=== PATIENT | female | born 1945 | race Caucasian/White ===

== ENCOUNTER → 2017-03-27 13:34 | Outpatient (CLI) | payer MEDICARE, OTHER, SELFPAY ==
[2017-03-27 16:15] LABS: Free T3 2.7 pg/mL (2.18-3.98); T4 Free Direct 1.28 ng/dL (0.76-1.46); Thyroid Stim Hormone (TSH) 1.02 uIU/mL (0.358-3.74)
== END ==
PROVIDERS: Family Provider Internal Medicine; PCP Internal Medicine; Visit Provider Nurse Practitioner
DX: E03.9 Hypothyroidism, unspecified (principal)
CPT/HCPCS: 36415; 84439; 84443; 84481

== ENCOUNTER 2017-04-02 13:30 | Outpatient (RCR) | payer MEDICARE, OTHER, SELFPAY ==
--- NOTE | 2017-02-05 15:06 | HP.PTEVAL_ITS ---
Patient's Visit Information AKIRA CHRISTENSEN is a 71 year old F referred to Physical Therapy by Inderjit Wolfe MD with a diagnosis of L TSA. Date of Evaluation: 02/05/17 Physical Therapist: Jakob Beatty, PT, - Visit Plan Frequency: 2-3x /Week Duration: 4-6 Weeks Plan: Follow protocal. PROM weeks 1-3, AAROM 4-6, strengthening 6-8. No IR 3 weeks - Subjective Subjective: DOS: 12/24/16. Pt reports she previously had her L shoulder replaced in 2013. Pt reports she was doing really well since that surgery, but pt notes while working at the [employer], her L shoulder prosthetic dislocated. Pt reports she had to have a reverse totoal shoulder arthroplasty this time around. Pt notes she was in her sling up til one week ago. Pt notes she wasnt the most compliant with wearing her sling. Pt is R hand dom. No T or numbness at this time. Pt reports her only limitations at this time are to avoid reaching behind her, and to not lift over 2 lbs. No sleep diff secondary to pain. 0/10 pain at rest, 3/10 at worst (wrapping rashad presents) - Pain L shoulder Pain Intensity (Out of 10): 0 Pain Intensity Range: 3 - Objective Neuro: B UE sensation is WNL to light touch. B bicepital reflex= 2/3. AROM: R shoulder flex= 150, abd= 120, ER= 90, IR WNL; L shoulder flex= 96, scap= 88 degrees. Observation: incisionsully healed, no signs of infection. MMT: R shoulder 5/5. L shoulder not tested - Goals Goal 1:: Decrease L shoulder pain x 50% to aid with IADL's Goal Time Frame: 4-6 Weeks Goal 2:: Increase L shoulder flex and abd ROM x 40 degrees to aid with overhead lifting Goal Time Frame: 4-6 Weeks Goal 3:: Increase L shoulder strength x 1 grade to aid with IADL's Goal Time Frame: 4-6 Weeks Goal 4:: I with HEP Goal Time Frame: 4-6 Weeks - Rehabilitation Potential Physical Therapy Diagnosis: L shoulder pain, weAKNESS, and limited ROM secondary L TSA Rehabilitation Potential: Good - Anticipated Interventions Patient/Client Instruction: Educate patient on: Condition, Plan of Care For the Purpose of:: To improve self management Therapeutic Exercise to Include: Strength training, Endurance training, Postural training, Passive ROM, Active ROM, Scapular Strength/Stabilization For the Purpose of:: To decrease pain, To increase ROM, To improve muscle performance and motor function Cryotherapy (ice pack, ice massage): Yes For the Purpose of:: To decrease pain Thank you for the opportunity to evaluate your patient. For Medicare and Medicare HMO plans, please review the plan of care and approve it. It will need to be FAXED BACK to us at [phone] for Medicare purposes. Please let me know if there are questions or concerns regarding this plan of care. Physician Signature: Date:
--- NOTE | 2017-02-27 15:37 | HP.PTEVAL ---
Patient's Visit Information AKIRA CHRISTENSEN is a 71 year old F referred to Physical Therapy by MD MELIA Sánchez with a diagnosis of L TSA. Date of Evaluation: 02/05/17 Physical Therapist: Austin Almanzar DPT, OC - Visit Plan Frequency: 2-3x /Week Duration: 4-6 Weeks Plan: Follow protocol. PROM weeks 1-3, AAROM 4-6, strengthening 6-8. No IR 3 weeks. Per pt request, do not do any activities that require the use of her Right arm. - Subjective Subjective: DOS: 12/24/16. Pt reports she previously had her L shoulder replaced in 2013. Pt reports she was doing really well since that surgery, but pt notes while working at the [employer], her L shoulder prosthetic dislocated. Pt reports she had to have a reverse totoal shoulder arthroplasty this time around. Pt notes she was in her sling up til one week ago. Pt notes she wasnt the most compliant with wearing her sling. Pt is R hand dom. No T or numbness at this time. Pt reports her only limitations at this time are to avoid reaching behind her, and to not lift over 2 lbs. No sleep diff secondary to pain. 0/10 pain at rest, 3/10 at worst (wrapping rashad presents) - Pain L shoulder Pain Intensity (Out of 10): 0 Pain Intensity Range: 3 - Objective Neuro: B UE sensation is WNL to light touch. B bicepital reflex= 2/3. AROM: R shoulder flex= 150, abd= 120, ER= 90, IR WNL; L shoulder flex= 96, scap= 88 degrees. Observation: incisionsully healed, no signs of infection. MMT: R shoulder 5/5. L shoulder not tested - Goals Goal 1:: Decrease L shoulder pain x 50% to aid with IADL's Goal Time Frame: 4-6 Weeks Goal 2:: Increase L shoulder flex and abd ROM x 40 degrees to aid with overhead lifting Goal Time Frame: 4-6 Weeks Goal 3:: Increase L shoulder strength x 1 grade to aid with IADL's Goal Time Frame: 4-6 Weeks Goal 4:: I with HEP Goal Time Frame: 4-6 Weeks - Rehabilitation Potential Physical Therapy Diagnosis: L shoulder pain, weAKNESS, and limited ROM secondary L TSA Rehabilitation Potential: Good - Anticipated Interventions Patient/Client Instruction: Educate patient on: Condition, Plan of Care For the Purpose of:: To improve self management Therapeutic Exercise to Include: Strength training, Endurance training, Postural training, Passive ROM, Active ROM, Scapular Strength/Stabilization For the Purpose of:: To decrease pain, To increase ROM, To improve muscle performance and motor function Cryotherapy (ice pack, ice massage): Yes For the Purpose of:: To decrease pain Thank you for the opportunity to evaluate your patient. For Medicare and Medicare HMO plans, please review the plan of care and approve it. It will need to be FAXED BACK to us at [phone] for Medicare purposes. Please let me know if there are questions or concerns regarding this plan of care. Physician Signature: Date:
--- NOTE | 2017-03-07 10:52 | HP.PTDCS(2) ---
HP - PT D/C Summary (2) It has been my pleasure to treat AKIRA CHRISTENSEN under orders from Inderjit Wolfe MD, for the diagnosis of BPPV for a total of 2 visit(s). Discharge Date: Please see the following information for a summary of their discharge status. - Subjective Subjective: Doing great, no dizzyness jaqui week, activities are normal - Objective Objective/Function/Assessment: - B hallpike and roll test Good balance - Goals Patient Goals: Other Other Goals: rid dizzyness. Goal 1:: Abolish dizzyness with transfers Goal Progress: Goal Met Goal 2:: Pt feel 100% better as far as dizzyness goes and normal activites at normal speed. Goal Progress: Goal Met - Plan Plan: D/C vertigo chart. - D/C Information If there are questions or concerns regarding this patient's physical therapy, please feel free to call me at [phone]. Thank you for the referral of this patient. Sincerely, Austin Almanzar, DPT, OC
--- NOTE | 2017-03-21 10:38 | HP.PTREVAL_ITS ---
Inderjit Wlofe MD, It has been my pleasure to treat AKIRA CHRISTENSEN over the last 11 visits for Steven TSA. Please see the progress note below for an update on the physical therapy plan of care! Subjective: I am about the same Objective/Function: L shoulder ROM: flex= 105, abd= 85, ER= 20, IR WNL. L shoulder MMT: flex= 2+/5, abd and IR= 3+/5, Er= 2/5. Pain 2/10, increases to 4/ 10 at worst. Pt is showing progress with ROM Plan Plan: cont with phase 3 strengthening Goals Goal 1:: Decrease L shoulder pain x 50% to aid with IADL's Goal Time Frame: 4-6 Weeks Goal Progress: Progressing Goal 2:: Increase L shoulder flex and abd ROM x 40 degrees to aid with overhead lifting Goal Time Frame: 4-6 Weeks Goal Progress: Progressing Goal 3:: Increase L shoulder strength x 1 grade to aid with IADL's Goal Time Frame: 4-6 Weeks Goal Progress: Progressing Goal 4:: I with HEP Goal Time Frame: 4-6 Weeks Goal Progress: Progressing Anticipated Interventions Patient/Client Instruction: Educate patient on: Condition, Plan of Care For the Purpose of:: To improve self management Therapeutic Exercise to Include: Strength training, Endurance training, Postural training, Passive ROM, Active ROM, Scapular Strength/Stabilization For the Purpose of:: To decrease pain, To increase ROM, To improve muscle performance and motor function Cryotherapy (ice pack, ice massage): Yes For the Purpose of:: To decrease pain Please do not hesitate to contact me at [phone] by phone or Fax: if you have questions or concerns regarding this new plan of care! Sincerely, Jakob Beatty, PT,
--- NOTE | 2017-04-11 10:19 | HP.PTDCSUM ---
HP - PT D/C Summary It has been my pleasure to treat AKIRA CHRISTENSEN under orders from Inderjit Wolfe MD, for the diagnosis of L TSA for a total of 14 visit(s). Discharge Date: Please see the following information for a summary of their discharge status. - Subjective Subjective: Pt reports only mild pain this date - Pain L shoulder Pain Intensity (Out of 10): 1 R shoulder Pain Intensity (Out of 10): 1 - Objective Objective/Function: Completed exercises per log without increase in sxs. pt had decrease ER noted. Fair stability noted. Added d1/d2 in supine to help improve ROM and rotation. Pt has hard time with OH movements. - Goals Goal 1:: Decrease L shoulder pain x 50% to aid with IADL's Goal Progress: Progressing Goal 2:: Increase L shoulder flex and abd ROM x 40 degrees to aid with overhead lifting Goal Progress: Progressing Goal 3:: Increase L shoulder strength x 1 grade to aid with IADL's Goal Progress: Progressing Goal 4:: I with HEP Goal Progress: Progressing - Plan Plan: Continue per POC to meet LTG and STG. Plan to add AROM [place] as pt can tolerate. - D/C Information If there are questions or concerns regarding this patient's physical therapy, please feel free to call me at [phone]. Thank you for the referral of this patient. Sincerely, Jakob Beatty, PT,
== END 2017-04-02 19:00 | disposition home or self-care (01) ==
LOC: PT 13:30
PROVIDERS: Family Provider Internal Medicine; PCP Internal Medicine; Visit Provider Orthopaedic Surgery
DX: H81.10 Benign paroxysmal vertigo, unspecified ear (principal); Z96.612 Presence of left artificial shoulder joint
CPT/HCPCS: 97110; 97161; 97530

== ENCOUNTER 2017-11-27 15:00 | Outpatient (RCR) | payer MEDICARE, OTHER, SELFPAY ==
--- NOTE | 2017-11-01 10:36 | HP.PTEVAL_ITS ---
Patient's Visit Information AKIRA CHRISTENSEN is a 71 year old F referred to Physical Therapy by HAILE Macdonald with a diagnosis of vertigo. Date of Evaluation: 11/01/17 Physical Therapist: Austin Almanzar DPT, OC - Visit Plan Frequency: 1-2x /Week Duration: 2-4 Weeks Plan: 1-2x/week as needed for positional checks and monitor vestibular. Treated with L Tai today. - Subjective Subjective: If I tilt head back or to the right then I get dizzy for the last 4 weeks insidously. Woke up that day with it. It lasts less than a minute. Feels normal in between episodes. activites pretty normal btu cannot look up. Gets dizzy with rolling in bed. Sleeping Ok. No DOBBINS. Not employed. 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 Enjoys gardening and can still do that. Had this last winter and fixed it with positional. - Objective Walks and trasnfers I without gait problems or balance deficits. Oculomotor is unremarkable: No nystagmus with gaze or head shake. pursuit and saccades are normal. VOR is normal and asymptomatic. convergence is normal. - skew eye deviation. - roll test. - R Hallpike. + L hallpike for quick up torsional nystagmus with some mild dizzyness. Treated with L Tai and then - L hallpike test. - Goals Goal 1:: abolish dizzyness with looking up and rolling in bed Goal Time Frame: 2-4 Weeks Goal 2:: Pt feel 100% back to normal Goal Time Frame: 2-4 Weeks - Rehabilitation Potential Physical Therapy Diagnosis: L posterior BPPV Rehabilitation Potential: Fair - Anticipated Interventions Patient/Client Instruction: Educate patient on: Condition, Plan of Care For the Purpose of:: To increase tolerance to activity/condition/position Comment: positional treatments and ex For the Purpose of:: To increase tolerance to activity/condition/position Thank you for the opportunity to evaluate your patient. For Medicare and Medicare HMO plans, please review the plan of care and approve it. It will need to be FAXED BACK to us at [phone] for Medicare purposes. Please let me know if there are questions or concerns regarding this plan of care. Physician Signature: Date:
--- NOTE | 2017-12-04 14:16 | HP.PTDCSUM ---
HP - PT D/C Summary It has been my pleasure to treat AKIRA CHRISTENSEN under orders from Joshua Whipple, TAR[facility], for the diagnosis of vertigo for a total of 6 visit(s). Discharge Date: 12/04/17 Please see the following information for a summary of their discharge status. - Subjective Subjective: Room spins with ex first rep lying to R for 12 seconds. Gets dizzy feeling tipping head back and to the right as to look at the top shelf. Also rolling to R intermittently makes her dizzy for a few seconds. Balance is OK in between dizzy sessions. Moves slowly always and has been that way for long time even before dizzyness. No dizzyness yet today but typically is daily. Typically will get it 5-6x/day. Saw Dr. Lo for another ear problem and tried to treat for BPPV but did not see anything. - Overall Improvement % Improvement: 90 - Objective Objective/Function: see above. - Goals Goal 1:: abolish dizzyness with looking up and rolling in bed Goal Progress: cancelled Goal 2:: Pt feel 100% back to normal Goal Progress: cancelled - Plan Plan: Pt cancelled last appointment saying thank you for everything you helped fix it - D/C Information Discharge Comments: D/C as patient has cancelled last visit stating she is doing better adn you helped fix it If there are questions or concerns regarding this patient's physical therapy, please feel free to call me at [phone]. Thank you for the referral of this patient. Sincerely, Asutin Almanzar, DPT, OC
== END 2017-11-27 19:00 | disposition home or self-care (01) ==
LOC: PT 15:00
PROVIDERS: Family Provider Internal Medicine; PCP Internal Medicine; Visit Provider Nurse Practitioner Primary Care
DX: R42 Dizziness and giddiness (principal)
CPT/HCPCS: 97161; 97530

== ENCOUNTER 2017-12-09 08:51 | Day surgery (SDC) | payer MEDICARE, OTHER, SELFPAY ==
--- NOTE | 2017-12-08 07:29 | PCM.HP.BLA ---
History and Physical Date of Admission: 12/09/17 ? HISTORY AND PHYSICAL - BREAST COMPLAINT ? Destini Miranda 1945 ? ? REFERRING PHYSICIAN: ??Esperanza Pablo MD ? CHIEF COMPLAINT: ??Right breast abnormality ? HPI: Destini is a 71 year old female with a complaint of an abnormal mammogram. ?The patient had a mammogram with ultrasound on September 03. ?In September 18 which demonstrated: ? IMPRESSION: SUSPICIOUS FINDING - BIOPSY SHOULD BE CONSIDERED - FOLLOW-UP RECOMMENDED The 1 cm x 0.5 cm x 0.9 cm taller than wide irregular mass in the right breast is suspicious of malignancy. ?An ultrasound guided biopsy is recommended. Sami mahmood/garrison:09/18/2017 11:18:42 Mining Engineer: Devora JONES([place])(Manjeet), [facility] letter sent: Abnormal ??Mammogram BI-RADS: 4 Suspicious finding - Biopsy should be considered Ultrasound BI-RADS: 4 Suspicious finding - Biopsy should be considered Wire Photo Operator News: [place] Transcribe Date/Time: Sep 10:16A Dictated by : SAMI ALEJANDRO MD This examination was interpreted and the report reviewed and electronically signed by: SAMI ALEJANDRO MD on Sep 11:18AM ?EST ? * * *Final Report* * * DATE OF EXAM: Sep 10:52AM ? WRU ??[id number] ?- ?[facility] US BREAST LTD RT ?/ PROCEDURE REASON: call back right breast / abnormal mammogram ? * * * * Physician Interpretation * * * * ?#[id number] - [facility] DIAGNOSTIC RT UNILATERAL RIGHT DIGITAL DIAGNOSTIC MAMMOGRAM WITH CAD: 09/18/2017 HISTORY: Call Back Right Breast / Abnormal Mammogram. RESULT: TECHNIQUE: ?The study was acquired using full field digital technology and interpreted from soft copy. Current study was also evaluated with a Computer Aided Detection (CAD). Comparison is made to exams dated: ?09/03/2017 mammogram - [facility], 01/24/2016 mammogram - [facility], 12/29/2015 mammogram, and 11/24/2014 mammogram - [facility]. The tissue of the right breast is heterogeneously dense. This may lower the sensitivity of mammography. There is an 8 mm irregular equal density mass with a circumscribed margin in the right breast at 2 o'clock middle depth. No other significant masses or calcifications are seen in the breast. SUSPICIOUS FINDING - BIOPSY SHOULD BE CONSIDERED The 8 mm irregular equal density mass in the right breast is suspicious of malignancy. ?An ultrasound guided biopsy is recommended. ? ? The patient denies a history of breast masses. ?She does ?perform a self breast exam routinely. ?She notes no skin changes. ?She denies nipple discharge. ?She notes no axillary masses. ?She notes no family history of breast problems. ?She notes no significant breast trauma or breast difficulties in the past. ? The patient has had 3 pregnancies. ??Her last mammogram was 2016. ?Her last menstrual period was 1995. ?Her first menstrual period was at 1957. ? I performed a right side ultrasound guided core biopsy for her abnormal mammogram on October 10, 2017. ? ? The pathology returned as: ? ?Intraductal papilloma ? The patient notes moderate bruising since the procedure. ? The bruising is since resolved. ?We obtained a follow-up right mammogram which demonstrates the clip to be nicely centered as expected at the previous biopsy site. ? The patient is being seen by me today at the request of Dr. ESPERANZA PABLO MD?for my opinion and advice regarding lumpectomy for Breast intraductal papilloma. ? PAST?MEDICAL?HISTORY PAST MEDICAL HISTORY Diagnosis Date ? Disorder of bone and cartilage, unspecified ? ? Last dexa 12/2007 ? Dupuytren's disease ? ? Esophageal reflux 2007 ? Osteopenia ? ? Osteoporosis ? ? Other and unspecified hyperlipidemia 2006 ? PMH - PAST MEDICAL HISTORY OF ? ? calcific tendinitis of the rotator cuff right shoulder ? Rheumatoid arthritis(714.0) 1989 ? 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 Unspecified essential hypertension 2006 ? ? PAST?SURGICAL?HISTORY PAST SURGICAL HISTORY Procedure Laterality Date ? COLONOSCOPY ? 09/08/13 ? repeat in 10 years ? EGD ? 09/08/13 ? mild reactive gastropathy ? FUSION OF WRIST JOINT ? 1999 ? left wrist. In 2001 patient had to have repair and the plate removed due to infection. ? OPEN FIXATN PROX END/NECK FEMUR FX ? 10/03/2010 ? ORIF femur - right - [facility] ? PAST SURGICAL HISTORY OF ? 05/29/2010 ? Right shoulder replacement ? PAST SURGICAL HISTORY OF ? 02/2013 ? left shoulder replacement ? PAST SURGICAL HISTORY OF ? ? removal of cyst from left foot ? REPAIR ACHILLES TENDON,PRIMARY ? 2000 ? bone spur cut tendon right ? THYROIDECTOMY ? 12-19-09 ? ?TOTAL non cancerous ? TOTAL ABDOM HYSTERECTOMY ? 1985 ? BSO appendectomy ? ? CURRENT?MEDICATIONS ? Current Outpatient Prescriptions: omeprazole (PRILOSEC) 20 mg capsule TAKE 1 CAPSULE BY MOUTH DAILY 1/2 HOUR BEFORE BREAKFAST MEAL Disp: 90 capsule Rfl: 3 lisinopril (ZESTRIL, PRINIVIL) 20 mg tablet TAKE 1 TABLET TWICE DAILY Disp: 180 tablet Rfl: 0 simvastatin (ZOCOR) 20 mg tablet TAKE 1 TABLET DAILY AT BEDTIME. Disp: 90 tablet Rfl: 0 Estradiol (ESTRACE) 0.5 mg tablet TAKE 1 TABLET ONE TIME DAILY (THIS REPLACES MENEST) Disp: 90 tablet Rfl: 3 flunisolide (NASALIDE, NASAREL) 25 mcg (0.025 %) spry Use 2 Sprays in the nose twice daily. Disp: 1 Bottle Rfl: 11 COMPOUNDED PRESCRIPTION Vestibular rehabRe BPPV Disp: 1 Each Rfl: 1 amLODIPine (NORVASC) 5 mg tablet Take 1 tablet by mouth once daily. Disp: 90 tablet Rfl: 3 INFLIXIMAB (REMICADE INTRAVEN.) Inject ?intravenously. Disp: Rfl: METHOTREXATE SODIUM (METHOTREXATE, ANTI-RHEUMATIC, ORAL) Take ?by mouth. Disp: Rfl: levothyroxine (SYNTHROID) 137 mcg tablet Take 1 tablet by mouth once daily. Disp: 90 tablet Rfl: 3 naproxen sodium (ANAPROX) 220 mg tablet Take two tablets by mouth twice daily. Disp: Rfl: ASCORBIC ACID (VITAMIN C ORAL) Take 1 tablet by mouth once daily. Disp: Rfl: triamcinolone acetonide (KENALOG) 0.1 % cream Apply 1 application to affected area twice daily as needed. Avoid use on the face. Disp: 60 g Rfl: 1 hydrocortisone 1 % ointment Apply small amount (for thin layer) selectively to dermatitis rash of upper eyelids once to twiceper day (as tolerated) until clear as directed. Try to limit use to under 10 days per flareepisode as much as possible. ?Also, advise evaluation by Ophthalmology for possible toxiicitywith extended or frequent use. Disp: 15 g Rfl: 1 FOLIC ACID ORAL Take 1 tablet by mouth once daily. Disp: Rfl: Potassium 99 mg Tab Take ?by mouth once daily. Disp: Rfl: multivitamins(DAILY MULTIVITAMIN TAB) Take one(1) tablet daily. Disp: 0 Rfl: 0 calcium carbonate/vitamin d3(CALCIUM 600 + D(3) 600 MG (1,500)-200 UNIT TAB) Take one(1) tablet two(2) times daily. Disp: 0 Rfl: 0 gluc lr/chondro lr a/vit c/mn(GLUCOSAMINE CHONDROITIN MAXIMUM STRENGTH 500 MG-400 MG CAP) Take one(1) tablet two(2) times daily. Disp: 0 Rfl: 0 hydroxychloroquine sulfate(PLAQUENIL 200 MG TAB) Take one(1) tablet two(2) times daily. Disp: Rfl: 0 ? No current facility-administered medications for this visit. ? ALLERGIES: Adhesive Tape (Rosins); Environmental [Other]; Flonase [Fluticasone Propionate]; Hydrochlorothiazide; Lipitor [Atorvastatin Calcium] ? PERSONAL HISTORY: SOCIAL?HISTORY Social History ??Marital status: ?Spouse name: ?Years of education: ?Number of children: 2 ? Occupational History Occupation ?Employer ?Comment ? [employer] ???retired. ? Social History Main Topics ??Smoking status: Former Smoker ?Packs/day: 1.00 ?Years: 40.00 ?Types: Cigarettes ?Quit date: 03/24/2006 ??Smokeless tobacco: Never Used ?Alcohol use: No ?Comment: rare ??Drug use: No ?Sexual activity: Not Currently ? Social History Narrative ??Retired ??From [employer] ?? , children in [facility] ? FAMILY HISTORY: FAMILY?HISTORY FAMILY HISTORY Problem Relation Age of Onset ? Cancer Mother ?ENDOMETRIAL CANCER ? None Father ? ? Allergies Father ? ? Heart Maternal Grandfather ?RI ? None Sister ? ? None Sister ? ? None Brother ? ? REVIEW OF SYMPTOMS: ??The review of systems data was entered by the nurse and reviewed by me ? There are no exam notes on file for this visit. ? ? PHYSICAL EXAMINATION: ? General: ?The patient is 71 year old female, well nourished, well hydrated in no acute distress. ?The patient is oriented to time, place, and person. ? VITALS: Blood pressure 138/72, pulse 68.?There is no height or weight on file to calculate BMI.? ? HEENT: ?Normal cephalic, ataumatic, pupils are equally round, sclera are anicteric, mucous membranes are moist, oropharynx is clear. ?Neck has no masses, asymmetry or lymphadenopathy. ?Thyroid is unremarkable. ? Respiratory: ?Clear to auscultation and percussion. ?Normal respiratory excursion and pattern. ? Cardiac: ?Examination is regular rate and rhythm. ? Abdominal exam: ?Soft, nontender, ?with no palpable masses. ?No hepatosplenomegaly. ?No palpable hernias. ? Rectal exam: ?exam deferred Extremities: ?no clubbing, cyanosis or edema. ?No adenopathy. ? Breast: ?Visual inspection reveals no retractions, nipple inversion, or skin changes. ?Palpation of the right breast reveals no dominant or suspicious masses, but multiple benign-feeling nodules. ?Palpation of the left breast reveals no dominant or suspicious masses, but multiple benign-feeling nodules. ?Axillary exam demonstrates no suspicious masses in either the left or right axilla. ?There is no nipple discharge expressed from either the left or right breast. ? LABORATORY VALUES: As Noted ? RADIOLOGIC STUDIES: ?As Noted ? Assessment ? IMPRESSION: Intraductal papilloma-risk for associated breast abnormalities ? PLAN: ?I plan to perform a right breast stereotactic needle localization lumpectomy. ?The planned surgical procedure was discussed extensively with the patient. The risks, benefits and anticipated outcomes of the procedure, the risks and benefits of the alternatives to the procedure, and the roles and tasks of the personnel to be involved, were discussed with the patient. ?My staff has also explained the procedure in understandable terms and the patient was given the option to take printed material concerning the planned procedure. ?The patient had the opportunity to ask questions concerning the planned procedure. ?The patient freely consents to the planned procedure. ? Anticipated Surgical Procedure/ CPT Code: right preoperative stereotactic guided needle placement - 63937??LUMPECTOMY - 72574-392, ?[id number] ? Anticipated Anesthetic: General ? Patient weight: ?Blood pressure 138/72, pulse 68.?BMI: ?There is no height or weight on file to calculate BMI. ? Planned antibiotic: Ancef 2gm IVPB inside sales consultant to OR ? SCDs needed - Yes ? Social Media Community Manager Needed - Yes ? Diagnoses: (R92.8) Abnormal mammogram ?(primary encounter diagnosis) (D24.1) Intraductal papilloma of breast, right ? My findings have been communicated to Dr. CUONG PABLO MD?via shared medical record. ?This note will be forwarded to Dr. ESPERANZA PABLO MD. ? Return to Clinic: The patient is instructed to follow-up with me 1 week post operatively. ? Kostas Brantley MD
--- NOTE | 2017-12-09 | BREAST_PTH ---
PATIENT: AKIRA CHRISTENSEN LOC: [facility] [place] U[place][id number] AGE/SX: 72/F ROOM: RE12/09/[address]: Dr. Kostas Brantley MD : 1945 BED: DIS: 12/09/2017 SPEC #: [id number] RECD: 12/09/17 11:32 STATUS: BENEDICTO RESandra #: [id number] ADÁN: 12/09/17 00:[address]: Kostas Brantley DEPT: SURGICAL PATHOLOGY RECD BY: Wilma Chun ENTERED: 12/09/17 11:55 SP TYPE: BREAST OTHR DR: Dr. Smiley Crooks MD Tissues: Right breast, NOS Procedures: Surgery Specimen Level V HEADER OPERATION: Right stereotactic needle localization lumpectomy PRE-OP DIAGNOSIS: Abnormal mammogram, intraductal papilloma right breast TISSUE SUBMITTED: Right breast lumpectomy with wire, single suture - superficial, double suture - medial MICROSCOPIC DIAGNOSIS Right breast, lumpectomy with needle localization: Intraductal papilloma. Intraductal hyperplasia without atypia. Focal chronic inflammation, fibrosis and old hemorrhage, consistent with previous biopsy site. Negative for malignancy. JANETH:miguel 12/12/17 MICROSCOPIC DESCRIPTION Slides are reviewed. GROSS DESCRIPTION Received fresh for intraoperative consultation labeled with the patient's name is a specimen designated right breast lumpectomy with wire-guided localization. The specimen consists of a piece of patel-yellow fibroadipose tissue measuring 6 x 5 x 3 cm. A piece of skin is also noted in the superior portion of the specimen measuring 1.5 x 0.3 cm. The specimen is oriented as follows: single stitch - superior, double stitch - medial. The specimen is inked as follows: anterior - yellow, posterior - black, superior - blue, inferior - green, medial - red and lateral - orange. Sections reveal a patel, indurated area measuring 0.5 cm from the inferior margin. The specimen gross is reviewed along with surgeon in person. Chief Recordist sections are submitted in ten cassettes as follows: 1 - skin and perpendicular medial and lateral margins, 2 - perpendicular anterior and posterior margins, 3 & 4 - indurated area with closest inferior margin, 5-7 - client services representative sections adjacent to the indurated area, 8-10 - client services representative sections from the other area. Sections will be submitted after additional fixation. 90% of the specimen is submitted. / Rudy 12/10/17 TC:1 CPT: 35180, 36165
--- NOTE | 2017-12-09 07:16 | BI_ITS ---
SURGICAL BREAST SPECIMEN RADIOGRAPH CLINICAL: Document presence of tissue clip marker in biopsy specimen. FINDINGS: Specimen shows presence of tissue clip marker. Electronically Signed: Arley Frazier MD at 12:27 EDT Tel [phone], Service support , BI/Breast Biopsy Specimen
[2017-12-09 09:12] VITALS: BP 136/72; PULSE 79; RESP 14; TEMP 37.3; O2SAT 97; BMI 27.6
[2017-12-09] MEDS: Cefazolin 2 GM in 0.9% Normal Saline 100 ML IV (10:39)
[2017-12-09] MEDS: Bupivacaine 0.5% PF 10 ML VIAL (11:20)
--- NOTE | 2017-12-09 11:46 | PCM.OPRPT ---
Report of Operation Date of Procedure: 12/09/17 Pre-Operative Diagnosis: right breast intraductal papilloma - 2 oclock position Post-Operative Diagnosis: right breast intraductal papilloma - 2 oclock position Surgery/Procedure Performed:: right needle localization lumpectomy conference services coordinator: Tyler Smith Type of Anesthesia:: General Anesthesiologist: Drake Manzo - ASA3 Specimen's removed: right breast Drains: none Estimated Blood Loss (mL): 5 Fluids Replaced: 800 Description of Procedure: The patient was brought to the stereotactic suite. Her right breast was positioned in the cc approach in the [facility] stereotactic table. Mammogram image demonstrated the clip to be nicely centered. Stereotactic images were obtained. Planned placement of the wire was marked and an additional 15 mm of depth added to the prescribed depth. The breast was then cleaned with Betadine. Local anesthetic was injected in the breast and a 15 Kopan's wire was inserted to the prescribed depth. Stereotactic images demonstrated good positioning of the wire. The wire was deployed as an needle was withdrawn. Stereotactic images demonstrated good positioning of the wire. The breast was marked compression the wire cut to length and taped. CC and true lateral views were then obtained. The patient was then brought to the operative suite. Sign was performed verifying patient, site, position, SCIP antibiotic prophylaxis-2 g of Ancef and DVT prophylaxis with SCDs. Following an LMA anesthesia, e. Following this, the patient?s right breast, axilla r were then prepped and draped in the usual fashion. Timeout was performed verifying patient, site, position. The wire entered the breast at the 2 oclock position. An elliptical incision was made and dissection carried down to subcutaneous breast tissue and then flared out such that a good margin would be obtained in all axes. When the specimen was removed. The wire came from the superior site. A solitary suture was placed at the superficial site A double tail suture was placed along the medial aspect of the specimen. The specimen was oriented on a radiographic plate and sent for specimen radiograph. While we?re awaiting specimen radiograph, the cavity was irrigated with sterile water and aspirated. There was noted to be good hemostasis. 4 medium clips were placed at the deep cavity margins and 4 small clips at the superficial cavity margins oriented the cavity for future radiation treatment. Subcutaneous breast tissue closed with interrupted 3-0 Vicryl suture. Skin was closed with a running 4-0 Biosyn subcuticular suture. Specimen radiograph demonstrated good position of the clip relative to the biopsy site. The specimen was then brought to the pathology department. I oriented the specimen with the pathologist. Gross margins were examined and felt to be at least 5mm. Given this, Dermabond was applied to the skin the patient was awakened and brought to recovery in stable condition. - Admit VTE Documentation VTE Present on Admission: No VTE Mechan Device Prophylaxis: SCD's VTE Pharm Prophylaxis ordered?: No
[2017-12-09 11:51] VITALS: BP 136/72; BP 154/88; PULSE 92; RESP 18; TEMP 36.1; O2SAT 98
--- NOTE | 2017-12-09 11:53 | DCINST_ITS ---
Discharge Diet: No Restrictions Discharge Activity: Return to Normal Activity May shower in (days): 3 Remove Dressing in (days):: 3 - Leave Dermabond in place. Allergies/Adverse Reactions: Allergies adhesive tape Allergy (Severe, Verified 12/09/17 09:07) Unknown grass pollen Allergy (Severe, Verified 12/09/17 09:07) Unknown house dust Allergy (Severe, Verified 12/09/17 09:07) Unknown latex tape Allergy (Severe, Uncoded 12/09/17 09:07) Unknown Medications to take at Discharge amlodipine 5 mg tablet 5 mg PO QDAY 03/07/17 antiarthritic combination no.2 900 mg tablet 1 tab PO BID 03/07/17 ascorbic acid (vitamin C) 500 mg capsule 500 mg PO DAILY 03/07/17 calcium citrate 250 mg calcium-vitamin D3 200 unit tablet 1 tab PO BID tab 03/07/17 estradiol 0.5 mg tablet 0.5 mg PO QDAY 03/07/17 ferrous sulfate 134 mg (27 mg iron) tablet 134 mg PO QDAY tab 03/07/17 flunisolide 25 mcg (0.025 %) nasal spray 2 spray INTRANASAL BID 03/07/17 folic acid 0.8 mg capsule 800 mcg PO QDAY 03/07/17 hydroxychloroquine 200 mg tablet 300 mg PO QDAY tab 03/07/17 infliximab 100 mg intravenous solution See Rx Instructions .ROUTE .COMPLEX 03/07/17 lisinopril 20 mg tablet 20 mg PO QDAY 03/07/17 methotrexate sodium 2.5 mg tablet 3 tab PO THEODORE tab 03/07/17 multivitamin tablet 1 tab PO QDAY 03/07/17 omeprazole 20 mg capsule,delayed release 20 mg PO BID 03/07/17 potassium gluconate 2.5 mEq tablet 2.5 meq PO QDAY tab 03/07/17 simvastatin 20 mg tablet 20 mg PO QPM 03/07/17 levothyroxine 137 mcg tablet 137 mcg PO DAILY #90 tab 11/04/17 Oxycodone HCl/Acetaminophen [Percocet 5/325] 1 tab PO Q4H PRN PRN 7 Days #14 tab 12/09/17 The following prescriptions were given: Oxycodone HCl/Acetaminophen [Percocet 5/325] 1 tab PO Q4H PRN PRN 7 Days #14 tab PRN Reason: Pain Primary Care Physician: Smiley Crooks MD [Primary Care Provider] - Test Results: Test results from this visit will be discussed in further detail at your follow- up appointment, if applicable. Please Follow Up With: Kostas Brantley MD - [phone] When: Please call for an appointment to be seen in one week.
[2017-12-09 11:58] VITALS: BP 136/72; BP 151/86; PULSE 85; RESP 16; O2SAT 95
[2017-12-09 12:12] VITALS: BP 136/72; BP 151/80; PULSE 87; RESP 18; TEMP 36.3; O2SAT 97
[2017-12-09 13:06] VITALS: BP 136/72; BP 146/81; PULSE 89; RESP 16; TEMP 37; O2SAT 97
== END 2017-12-09 13:16 | disposition home or self-care (01) ==
LOC: SDC 08:51 → AC 08:53
PROVIDERS: Family Provider Internal Medicine; PCP Internal Medicine; Referring Provider Surgery; Visit Provider Surgery
PROC: (CPT 19301; principal; 2017-12-09 10:15)
DX: D24.1 Benign neoplasm of right breast (principal); N60.91 Unspecified benign mammary dysplasia of right breast; R92.8 Other abnormal and inconclusive findings on diagnostic imaging of breast; M72.0 Palmar fascial fibromatosis [Dupuytren]; M81.0 Age-related osteoporosis without current pathological fracture; E78.49 Other hyperlipidemia; I10 Essential (primary) hypertension; M06.9 Rheumatoid arthritis, unspecified; Z79.899 Other long term (current) drug therapy; Z87.891 Personal history of nicotine dependence; E89.0 Postprocedural hypothyroidism
CPT/HCPCS: 19301; 19281; 76098; 88305; 88307; J7120; J2405; Q9968

== ENCOUNTER → 2018-05-30 10:39 | Outpatient (CLI) | payer MEDICARE, OTHER, SELFPAY ==
[2018-05-30 12:26] LABS: Thyroid Stim Hormone (TSH) 1.38 uIU/mL (0.358-3.74)
== END ==
PROVIDERS: Family Provider Family Medicine; PCP Family Medicine; Visit Provider Family Medicine
DX: E03.2 Hypothyroidism due to medicaments and other exogenous substances (principal)
CPT/HCPCS: 36415; 84436; 84443

== ENCOUNTER → 2018-07-07 | Outpatient (CLI) | payer MEDICARE, OTHER, SELFPAY ==
[2018-07-07 14:22] LABS: AST(SGOT) 28 U/L (15-37); Alanine Aminotransfer ALT/SGPT 34 U/L (13-56); Albumin, Serum 3.7 g/dL (3.2-5.0); Alkaline Phosphatase 74 U/L (45-117); Bilirubin, Direct 0.16 mg/dL (0.00-0.30); Globulin 4.4 g/dL (2.2-4.2); Protein, Total 8.1 g/dL (6.4-8.2)
== END | disposition home or self-care (01) ==
LOC: MTLAB 13:01
PROVIDERS: Family Provider Family Medicine; PCP Family Medicine; Referring Provider Internal Medicine Rheumatology; Visit Provider Internal Medicine Rheumatology
DX: R74.8 Abnormal levels of other serum enzymes (principal)
CPT/HCPCS: 36415; 80076

== ENCOUNTER 2018-12-17 14:30 | Outpatient (RCR) | payer MEDICARE, OTHER, SELFPAY ==
--- NOTE | 2018-12-09 13:29 | HP.PTEVAL_ITS ---
Patient's Visit Information AKIRA CHRISTENSEN is a 73 year old F referred to Physical Therapy by Renee Briscoe MD with a diagnosis of vertigo. Date of Evaluation: 12/09/18 Physical Therapist: Austin Almanzar, TAVIA, OCS, CSCS - Visit Plan Frequency: 1x/Week Duration: 4-6 Weeks Plan: weekly x 2-4 for positional treatments and ex as needed. - Subjective Findings: Has had vertigo which PT helps. Recently one year ago. It returned 3 weeks ago out of nowhere. Got dizzy adn still does putting head back for 10 seconds. Feels pretty normal in between episodes and balance is OK. Only happens if puts head back. Is avoiding looking up at window blinds to pull them down. Looking at top shelf shopping can be challenging. Sleep is OK. 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 Basic aDLs are OK. 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 - Objective Walks and transfers normally today safe adn without danger. C/S aROM WFL adn without pain. - L hallpike christofer. + r hallpike for up torsional nystagmus of 15 second duration, treated with Tai adn then negative R hallpike. - Balance Scores Functional Gait Assessment Score: 24 % Disability: 20.0000 - Goals Goal 1:: abolish dizzyness 100% Goal Time Frame: 2-4 Weeks Goal 2:: Look at top shelf without problems. Goal Time Frame: 2-4 Weeks Goal 3:: DHI 0% disability. Goal Time Frame: 2-4 Weeks - Rehabilitation Potential Physical Therapy Diagnosis: BPPV Rehabilitation Potential: Good - Anticipated Interventions Patient/Client Instruction: Educate patient on: Condition, Plan of Care For the Purpose of:: To increase tolerance to activity/condition/position Comment: positional ex and traatments For the Purpose of:: To increase tolerance to activity/condition/position Thank you for the opportunity to evaluate your patient. For Medicare and Medicare HMO plans, please review the plan of care and approve it. It will need to be FAXED BACK to us at [phone] for Medicare purposes. For Medicare only, by signing this I certify the plan of care. Please let me know if there are questions or concerns regarding this plan of care. Physician Signature: Date:
--- NOTE | 2019-01-22 16:52 | HP.PT.NRP ---
HP - Discharge Summary (1) - Patient Information AKIRA CHRISTENSEN was seen in my office for initial evaluation on 12/09/18. The following Plan of Care was established for this patient: Initial Frequency: 1x/Week Initial Duration: 4-6 Weeks - Anticipated Interventions Patient/Client Instruction: Educate patient on: Condition, Plan of Care For the Purpose of:: To increase tolerance to activity/condition/position For the Purpose of:: To increase tolerance to activity/condition/position This patient was last seen in our office 12/17/18. Pertinent comments regarding their Physical therapy will appear below: Pt seen two visits of positional treatments adn was doing well. Was to f/u a week later but did not attend or schedule. Will discontinue as it has been over 4 weeks. At this point I will be discontinuing this patient from physical therapy. I would be happy to see this patient again in the future if found appropriate by the physician. Thank you! Austin Almanzar, DPT, OCS, CSCS
== END 2018-12-17 19:00 | disposition home or self-care (01) ==
LOC: PT 14:30
PROVIDERS: Family Provider Family Medicine; PCP Family Medicine; Referring Provider Family Medicine; Visit Provider Family Medicine
DX: H81.10 Benign paroxysmal vertigo, unspecified ear (principal)
CPT/HCPCS: 97161; 97530

== ENCOUNTER → 2019-02-05 11:13 | Outpatient (CLI) | payer MEDICARE, OTHER, SELFPAY ==
[2019-02-05 12:43] LABS: Absolute Lymphocyte Count 1.94 X10^3/uL (0.83-4.51); Absolute Neutrophil Count 6.7 X10^3/uL (2.0-7.7); Basophil# 0.04 X10^3/uL; Basophil% 0.4 % (0-1); Eosinophil# 0.15 X10^3/uL; Eosinophils% 1.6 % (0-5); Hematocrit 44.4 % (37-47); Hemoglobin 14.7 g/dL (12.0-15.0); Lymphocyte # 1.94 X10^3/ul (4.0); Lymphocyte % 20.2 % (19-41); Mean Corp Hgb Conc 33.1 g/dL (32-36); Mean Corpuscular Hgb 30.6 pg (27.0-32.0); Mean Corpuscular Volume 92.3 fL (81-99); Mean Platelet Vol. 10.9 fl (6.2-12.0); Monocyte# 0.74 X10^3/uL; Monocyte% 7.7 % (0-10); NRBC Flagged by Analyzer 0 % (0-5); Neutrophil # 6.71 X10^3/uL (2.7-7.7); Neutrophil % 69.9 % (47-70); Platelet Count 197 K/mm3 (150-450); RBC Distribution Width CV 13.5 % (11.6-14.6); RBC Distribution Width SD 45.9 fl (35.1-43.9); Red Blood Count 4.81 M/mm3 (4.2-5.4); White Blood Count 9.6 K/mm3 (4.4-11.0)
[2019-02-05 13:20] LABS: ALB/GLOB Ratio 0.9 RATIO (0.9-2.4); AST(SGOT) 25 U/L (15-37); Alanine Aminotransfer ALT/SGPT 43 U/L (13-56); Albumin, Serum 3.9 g/dL (3.2-5.0); Alkaline Phosphatase 79 U/L (45-117); Anion Gap 5 (5-15); BUN 17 mg/dL (7-18); BUN/Creat Ratio 20.9 RATIO (10-20); Chloride 106 mmol/L (98-107); Creatinine, Serum 0.81 mg/dL (0.55-1.02); EST Glomerular Filtration Rate 74 mL/min (>60); Est Glom Filt Rate - Afr Amer 89 mL/min (>60); Globulin 4.5 g/dL (2.2-4.2); Glucose 87 mg/dL (74-106); Protein, Total 8.4 g/dL (6.4-8.2); Sodium Level 138 mmol/L (136-145)
[2019-02-09 16:20] LABS: Thyroid Stim Hormone (TSH) 2.88 uIU/mL (0.358-3.74)
== END ==
PROVIDERS: Family Provider Family Medicine; PCP Family Medicine; Visit Provider Family Medicine
DX: Z01.818 Encounter for other preprocedural examination (principal)
CPT/HCPCS: 36415; 80053; 84443; 85025

== ENCOUNTER 2019-02-13 05:39 | Day surgery (SDC) | payer MEDICARE, OTHER, SELFPAY ==
[2019-02-13] VITALS (8 sets, daily range): BP systolic 122–131; BP diastolic 63–72; PULSE 78–84; RESP 15–16; TEMP 36.5–36.6; O2SAT 93–97; BMI 29.5
[2019-02-13] MEDS: Lactated Ringers 1,000 ML 100 ML IV (06:15)
[2019-02-13 06:24] LABS: Absolute Neutrophil Count 3.2 X10^3/uL (2.0-7.7); Basophil# 0.04 X10^3/uL; Basophil% 0.7 % (0-1); Eosinophil# 0.12 X10^3/uL; Eosinophils% 2.2 % (0-5); Hematocrit 40.8 % (37-47); Hemoglobin 13.7 g/dL (12.0-15.0); Lymphocyte % 25.8 % (19-41); Mean Corp Hgb Conc 33.6 g/dL (32-36); Mean Corpuscular Hgb 30.5 pg (27.0-32.0); Mean Corpuscular Volume 90.9 fL (81-99); Mean Platelet Vol. 10.3 fl (6.2-12.0); Monocyte# 0.62 X10^3/uL; Monocyte% 11.4 % (0-10); NRBC Flagged by Analyzer 0 % (0-5); Neutrophil # 3.23 X10^3/uL (2.7-7.7); Neutrophil % 59.5 % (47-70); Platelet Count 195 K/mm3 (150-450); RBC Distribution Width CV 13.1 % (11.6-14.6); RBC Distribution Width SD 43.4 fl (35.1-43.9); Red Blood Count 4.49 M/mm3 (4.2-5.4); White Blood Count 5.4 K/mm3 (4.4-11.0)
[2019-02-13 06:48] LABS: BUN 19 mg/dL (7-18); Creatinine, Serum 0.89 mg/dL (0.55-1.02); EST Glomerular Filtration Rate 66 mL/min (>60); Estimated Creatinine Clearance 49.34 ml/min; Glucose 109 mg/dL (74-106)
[2019-02-13 06:49] LABS: ALB/GLOB Ratio 0.8 RATIO (0.9-2.4); AST(SGOT) 28 U/L (15-37); Alanine Aminotransfer ALT/SGPT 24 U/L (13-56); Albumin, Serum 3.4 g/dL (3.2-5.0); Alkaline Phosphatase 71 U/L (45-117); Anion Gap 6 (5-15); BUN/Creat Ratio 21.3 RATIO (10-20); Calcium,Total 8.5 mg/dL (8.5-10.1); Chloride 109 mmol/L (98-107); Est Glom Filt Rate - Afr Amer 80 mL/min (>60); Globulin 4.4 g/dL (2.2-4.2); Potassium 3.9 mmol/L (3.5-5.1); Protein, Total 7.8 g/dL (6.4-8.2); Sodium Level 141 mmol/L (136-145); Thyroid Stim Hormone (TSH) 2.89 uIU/mL (0.358-3.74)
--- NOTE | 2019-02-13 07:00 | RAD_ITS ---
STUDY: X-RAY - LEFT FOOT CLINICAL: Female, 73 years old. LEFT 2ND TOE AMPUTATION. 3 SEC. FL TECHNIQUE: 2 view(s) of the foot. COMPARISON: None. FINDINGS: 3 seconds of fluoroscopy of the left foot was utilized and operating room and 2 images made of for interpretation. RAD/Foot 2 Views IMPRESSION: Fluoroscopy during surgery. Electronically Signed: Kostas Tobin MD at 8:57 EST Tel , Service support ,
[2019-02-13] MEDS: Cefazolin 2 GM in 0.9% Normal Saline 100 ML IV (07:28)
[2019-02-13] MEDS: Bupivacaine Mpf 0.5% 30 ML VIAL (07:53)
--- NOTE | 2019-02-13 08:12 | RAD_ITS ---
STUDY: X-RAY - LEFT FOOT CLINICAL: Female, 73 years old. 2ND TOE AMPUTATION TECHNIQUE: 3 view(s) of the foot. COMPARISON: None. FINDINGS: Normal talus, calcaneus, and tarsal bones. Small plantar calcaneal enthesophyte. Normal visualized subtalar, talonavicular, calcaneocuboid, tarsal and tarsometatarsal articulations. Normal metatarsi. There is degenerative arthrosis of the metatarsophalangeal joint of the hallux with a hallux valgus deformity. Normal tibial and fibular sesamoid bones. Normal interphalangeal joint of the great toe. Normal phalanges of the great toe. Normal second through fifth metatarsophalangeal joints. Status post amputation of the second digit. The soft tissue structures are unremarkable. RAD/Foot min 3 Views IMPRESSION: Status post amputation of the second digit. Electronically Signed: Kostas Tobin MD at 8:49 EST Tel , Service support ,
--- NOTE | 2019-02-13 08:12 | DCINST_ITS ---
Discharge Diet: No Restrictions Discharge Activity: May not drive while taking narcotic pain medications. Weight Bearing Status: Partial weight bearing - heel weightbear with surgical shoe Keep extremity elevated above heart level: Left Leg Call your doctor if your incision/area has: Continuous Slow Oozing, Sudden Increased Bleeding, Increased Pain/ Swelling, Increased Redness, Foul Smelling Discharge, Swelling at the incision site Call your doctor if you observe: Fever of 101 or Higher, Calf discomfort, Uncontrolled pain Cleanse incision/area with: Keep Dressing Clean & Dry Allergies/Adverse Reactions: Allergies adhesive tape Allergy (Severe, Verified 02/13/19 06:03) Unknown grass pollen Allergy (Severe, Verified 02/13/19 06:03) Unknown house dust Allergy (Severe, Verified 02/13/19 06:03) Unknown latex tape Allergy (Severe, Uncoded 02/13/19 06:03) Unknown Medications to take at Discharge amlodipine 5 mg tablet 5 mg PO QDAY 03/07/17 ascorbic acid (vitamin C) 500 mg capsule 500 mg PO DAILY 03/07/17 calcium citrate 250 mg calcium-vitamin D3 200 unit tablet 1 tab PO BID tab 03/07/17 estradiol 0.5 mg tablet 0.3 mg PO QDAY 03/07/17 ferrous sulfate 134 mg (27 mg iron) tablet 134 mg PO QDAY tab 03/07/17 flunisolide 25 mcg (0.025 %) nasal spray 2 spray INTRANASAL BID 03/07/17 folic acid 0.8 mg capsule 800 mcg PO QDAY 03/07/17 hydroxychloroquine 200 mg tablet 300 mg PO QDAY tab 03/07/17 infliximab 100 mg intravenous solution See Rx Instructions .ROUTE .COMPLEX 03/07/17 lisinopril 20 mg tablet 20 mg PO BID 03/07/17 methotrexate sodium 2.5 mg tablet 8.5 tab PO THEODORE tab 03/07/17 multivitamin 1 tab PO QDAY 03/07/17 omeprazole 20 mg capsule,delayed release 20 mg PO BID 03/07/17 potassium gluconate 2.5 mEq tablet 2.5 meq PO QDAY tab 03/07/17 simvastatin 20 mg tablet 20 mg PO QPM 03/07/17 Glucos Sul 2Kcl/MSM/Chond/C/Mn [Glucosamine Chondroitin Cap] 1 ea PO DAILY 02/09/19 Levothyroxine Sodium [Synthroid] 137 mcg PO QHS 02/09/19 Primary Care Physician: Renee Briscoe MD [Primary Care Provider] - Test Results: Test results from this visit will be discussed in further detail at your follow- up appointment, if applicable. Please Follow Up With: Chloe Simmons DPM When: [facility] week [facility]. Call [phone] sooner if questions Proposed Discharge Date: 02/13/19
--- NOTE | 2019-02-13 08:14 | PCM.OPRPT ---
Problem List (1) Hammertoe of left foot Status: Chronic (2) Toe pain, left Status: Chronic Report of Operation Date of Procedure: 02/13/19 Pre-Operative Diagnosis: Left second hammertoe Post-Operative Diagnosis: Left second hammertoe Surgery/Procedure Performed:: Left second digit amputation Description of Surgical Findings:: Hemostasis: Controlled with well-padded pneumatic left ankle tourniquet, 250 mmHg, 8 minutes Materials: 3-0 Vicryl, 3-0 nylon Specimens: None The patient tolerated the procedure and anesthesia well. She was transported to the PACU with vital signs stable and vascular status intact to the left lower extremity. She will be transferred home upon continued stability. Postoperative orders were entered electronically. Postoperative x-rays were reviewed as noted. physician practice market manager: none - Surgeon: Chloe Simmons DPM [employer]: Yareli Hines PGY1 Type of Anesthesia:: Local MAC - Preoperative: One-to-one mixture of 1% lidocaine plain and 0.5% Marcaine plain administered typical left second ray block fashion, 8cc Specimen's removed: none Estimated Blood Loss (mL): < 75 mL Description of Procedure: Indications: This 73-year-old female with significant past medical history of rheumatoid arthritis, GERD, hypothyroidism, history of urinary tract infection, hypercholesteremia, osteopenia, and incontinence continues to have left foot pain while ambulating with shoe gear on. She has a notable rigid contraction of the left second toe with a prominent proximal interphalangeal joint. This is where her site of pain on palpation is. She has no instability of the adjacent metatarsal phalangeal joint. It is notable that she has adjacent dorsal contraction of lesser toes and lateral hallux deviation consistent with a bunion deformity. She has palpable pulses and her neurological status is intact to light touch. Her main complaint is pain with shoe gear use and inability to ambulate without pain to the dorsal aspect of her prominent 2nd toe. X-ray preoperative findings include dorsal contracture of the left second toe consist with a hammertoe deformity without any other acute fractures or dislocations. She has failed conservative care including activity modification, shoe gear gear change, and splinting. She elects to proceed with surgical intervention. I offered forefoot reconstruction surgery including bunion and hammer toe correction. She is concerned about the healing time and requirements with this option and has requested amputation of the offending digit. The preoperative indication, planned procedure, possible benefits, risk, complications, and anticipated healing time management were discussed in detail with the patient. She understands and elects to proceed with surgery at this time. No guarantees were made. She understands risks and complications include but are not limited to the following: Pain, swelling, scarring, need for further surgery, delayed or nonhealing, further deformity progression, blood clot, allergic reaction, chronic pain, infection, loss of limb, function, life. I answered her questions. The surgical consent and limb were signed. Preoperative clearance and history and physical exam were reviewed including preoperative diagnosis such as CBC, CMP, and EKG. Procedure in detail: The patient was transported to the operating room via cart and was placed on the operating table in supine position. Final verification of the patient, surgery, limb designation was performed via the timeout procedure. IV antibiotics were administered by the anesthesia team. MAC anesthesia was initially by the anesthesia team. Local anesthesia was administered by the podiatry team. A well-padded left ankle tourniquet was placed. The left lower extremity was prepped and draped in the usual aseptic manner and surgery began as the following: Attention was first directed to the left second toe in which a fishmouth incision was made at the level of the metatarsal phalangeal joint extending onto the second toe. Care was taken to identify, protect, and retract all neurovascular structures at this point and throughout the remainder of surgery. Blunt dissection was performed down to the 2nd metatarsal phalangeal joint capsule location. The second toe was next disarticulated at the second metatarsal phalangeal joint level. This was removed in total from the table. No purulence, tissue loss or necrosis was identified. The tendons extending into the wound bed were next resected. This was copiously irrigated with normal saline. The tourniquet was deflated at this time and pressure was applied to maintain hemostasis. No pulsatile bleeding was noted and brisk capillary refill time was noted to the adjacent toes of the left foot and also to the medial and lateral amputation site flaps. Deep closure was performed with 3-0 Vicryl and the skin was reapproximated with 3-0 nylon utilizing horizontal mattress and simple suture techniques. Next, a postoperative dressing consisting of Adaptic soaked in Betadine, gauze, Kerlix, and Cruzito wrap was applied to the left foot. After procedure: The patient tolerated the procedure anesthesia well. She was transported to the PACU with vital signs stable and vascular status intact to the left lower extremity. She will maintain a heel weightbearing status to left foot with a surgical shoe in place that she already has. She was advised to use an assistive device only if needed. She was advised to keep her dressing clean, dry, and intact until follow-up next [facility] or call sooner if she has any questions or concerns. She was advised to ice and elevate for pain inflammation management. She was also given a prescription for postoperative pain medication, [place]. She was advised to use this medication in a safe manner only if needed. Postoperative x-rays were reviewed prior to leaving the operating room including adequate resection of the second toe. No other acute injuries were noted. Postoperative orders were entered electronically. Chloe Simmons DPM, [facility] Grafts/Implants Used: none - Complications none - Admit VTE Documentation VTE Present on Admission: No VTE Mechan Device Prophylaxis: SCD's VTE Pharm Prophylaxis ordered?: Yes
== END 2019-02-13 09:18 | disposition home or self-care (01) ==
LOC: SDC 05:40 → AC 05:41
PROVIDERS: Anesthesiology; Family Provider Family Medicine; PCP Family Medicine; Referring Provider Podiatrist; Visit Provider Podiatrist
PROC: (CPT 28285; principal; 2019-02-13 07:15)
DX: M20.42 Other hammer toe(s) (acquired), left foot (principal); M06.9 Rheumatoid arthritis, unspecified; K21.9 Gastro-esophageal reflux disease without esophagitis; E03.8 Other specified hypothyroidism; E78.00 Pure hypercholesterolemia, unspecified; Z87.891 Personal history of nicotine dependence; Z79.52 Long term (current) use of systemic steroids; Z79.899 Other long term (current) drug therapy
CPT/HCPCS: 28285; 73620; 73630; 76000; 80053; 84443; 85025; J7120; J2405

== ENCOUNTER → 2019-05-13 15:52 | Outpatient (CLI) | payer MEDICARE, OTHER, SELFPAY ==
[2019-02-13 06:05] VITALS: BMI 29.5
[2019-05-13 17:34] LABS: Color, Urine Yellow (Yellow); Glucose, Dipstick Normal (Normal); Ketone-Dipstick Negative (Negative); Leukocyte Esterase-Dipstick 500 /ul (Negative); Nitrite-Dipstick Negative (Negative); Occult Blood-Urine 50 /ul (Negative); Protein-Dipstick 100 mg/dl (Negative); Urine Bilirubin Dipstick Negative (Negative); Urine Clarity Cloudy (Clear); Urine Urobilinogen Normal (Normal)
== END ==
PROVIDERS: PCP Family Medicine; Referring Provider Family Medicine; Visit Provider Family Medicine
DX: N39.0 Urinary tract infection, site not specified (principal)
CPT/HCPCS: 81002; 87077; 87086; 87088; 87186

== ENCOUNTER → 2019-06-29 10:30 | Outpatient (CLI) | payer MEDICARE, OTHER, SELFPAY ==
[2019-02-13 06:05] VITALS: BMI 29.5
[2019-06-29 12:14] LABS: Absolute Lymphocyte Count 1.79 X10^3/uL (0.83-4.51); Absolute Neutrophil Count 2.5 X10^3/uL (2.0-7.7); Basophil# 0.03 X10^3/uL; Basophil% 0.6 % (0-1); Eosinophil# 0.08 X10^3/uL; Eosinophils% 1.7 % (0-5); Hematocrit 43.6 % (37-47); Hemoglobin 14.2 g/dL (12.0-15.0); Lymphocyte # 1.79 X10^3/ul (4.0); Lymphocyte % 37.1 % (19-41); Mean Corp Hgb Conc 32.6 g/dL (32-36); Mean Corpuscular Hgb 29.2 pg (27.0-32.0); Mean Corpuscular Volume 89.7 fL (81-99); Mean Platelet Vol. 11.1 fl (6.2-12.0); Monocyte# 0.41 X10^3/uL; Monocyte% 8.5 % (0-10); NRBC Flagged by Analyzer 0 % (0-5); Neutrophil # 2.51 X10^3/uL (2.7-7.7); Neutrophil % 51.9 % (47-70); Platelet Count 188 K/mm3 (150-450); RBC Distribution Width SD 45.1 fl (35.1-43.9); Red Blood Count 4.86 M/mm3 (4.2-5.4); White Blood Count 4.8 K/mm3 (4.4-11.0)
[2019-06-29 12:29] LABS: AST(SGOT) 41 U/L (15-37); Alanine Aminotransfer ALT/SGPT 38 U/L (13-56); Albumin, Serum 3.7 g/dL (3.2-5.0); Alkaline Phosphatase 63 U/L (45-117); Bilirubin, Direct 0.17 mg/dL (0.00-0.30); Creatinine, Serum 0.95 mg/dL (0.55-1.02); EST Glomerular Filtration Rate 61 mL/min (>60); Est Glom Filt Rate - Afr Amer 74 mL/min (>60); Globulin 4.4 g/dL (2.2-4.2); Protein, Total 8.1 g/dL (6.4-8.2)
== END ==
PROVIDERS: PCP Family Medicine; Referring Provider Internal Medicine Rheumatology; Visit Provider Internal Medicine Rheumatology
DX: M05.79 Rheumatoid arthritis with rheumatoid factor of multiple sites without organ or systems involvement (principal); Z79.899 Other long term (current) drug therapy
CPT/HCPCS: 36415; 80076; 82565; 85025

== ENCOUNTER → 2019-11-12 10:04 | Outpatient (CLI) | payer MEDICARE, OTHER, SELFPAY ==
[2019-02-13 06:05] VITALS: BMI 29.5
[2019-11-12 12:52] LABS: Absolute Lymphocyte Count 1.77 X10^3/uL (0.83-4.51); Basophil# 0.03 X10^3/uL; Basophil% 0.5 % (0-1); Eosinophil# 0.11 X10^3/uL; Hematocrit 42.1 % (37-47); Hemoglobin 13.5 g/dL (12.0-15.0); Lymphocyte # 1.77 X10^3/ul (4.0); Lymphocyte % 32.2 % (19-41); Mean Corp Hgb Conc 32.1 g/dL (32-36); Mean Corpuscular Hgb 29.9 pg (27.0-32.0); Mean Corpuscular Volume 93.1 fL (81-99); Mean Platelet Vol. 10.6 fl (6.2-12.0); Monocyte# 0.55 X10^3/uL; NRBC Flagged by Analyzer 0 % (0-5); Neutrophil # 3.03 X10^3/uL (2.7-7.7); Neutrophil % 55.1 % (47-70); Platelet Count 181 K/mm3 (150-450); RBC Distribution Width CV 13.2 % (11.6-14.6); RBC Distribution Width SD 45.3 fl (35.1-43.9); Red Blood Count 4.52 M/mm3 (4.2-5.4); White Blood Count 5.5 K/mm3 (4.4-11.0)
[2019-11-12 13:28] LABS: Anion Gap 8 (5-15); BUN 22 mg/dL (7-18); BUN/Creat Ratio 23.8 RATIO (10-20); Calcium,Total 9.1 mg/dL (8.5-10.1); Chloride 109 mmol/L (98-107); Creatinine, Serum 0.92 mg/dL (0.55-1.02); EST Glomerular Filtration Rate 63 mL/min (>60); Est Glom Filt Rate - Afr Amer 77 mL/min (>60); Glucose 96 mg/dL (74-106); Potassium 4.2 mmol/L (3.5-5.1); Sodium Level 140 mmol/L (136-145)
== END ==
PROVIDERS: PCP Family Medicine; Visit Provider Family Medicine
DX: Z01.818 Encounter for other preprocedural examination (principal); M06.9 Rheumatoid arthritis, unspecified; K21.9 Gastro-esophageal reflux disease without esophagitis; I10 Essential (primary) hypertension
CPT/HCPCS: 36415; 80048; 85025

== ENCOUNTER → 2020-03-29 12:20 | Outpatient (CLI) | payer MEDICARE, OTHER, SELFPAY ==
[2019-02-13 06:05] VITALS: BMI 29.5
--- NOTE | 2020-03-29 12:24 | RAD_ITS ---
STUDY: X-RAY - CERVICAL SPINE REASON FOR EXAM: Female, 74 years old. PAIN IN RIGHT SIDE OF NECK RADIATING POSTERIORLY WITH HEADACHES. NO KNOWN INJURY. HX OF RA TECHNIQUE: 5 view(s) of the cervical spine were obtained. COMPARISON: None FINDINGS: There are degenerative changes of the anterior atlantoaxial articulation. Normal odontoid process. There is straightening of the normal cervical lordosis. There is multi-level endplate spondylosis. There is multi-level degenerative disc disease with multilevel disc space narrowing. There is multi-level osseous foraminal stenosis. Minimal anterior listhesis of C3 on C4. There are atherosclerotic vascular calcifications of the carotid arteries. RAD/Cerv Spine 4 or 5 Views IMPRESSION: Multilevel disc space narrowing in the spondylosis with narrowing of the intervertebral foramen bilaterally. Electronically Signed: Arley Frazier MD at 15:37 EST , Service support ,
== END ==
PROVIDERS: PCP Family Medicine; Referring Provider Family Medicine; Visit Provider Family Medicine
DX: M54.2 Cervicalgia (principal)
CPT/HCPCS: 72050

== ENCOUNTER → 2020-05-05 | Outpatient (CLI) | payer MEDICARE, OTHER, SELFPAY ==
[2019-02-13 06:05] VITALS: BMI 29.5
== END | disposition home or self-care (01) ==
PROVIDERS: PCP Family Medicine; Referring Provider Family Medicine; Visit Provider Family Medicine
DX: N89.8 Other specified noninflammatory disorders of vagina (principal)

== ENCOUNTER → 2020-10-04 08:16 | Outpatient (CLI) | payer MEDICARE, OTHER, SELFPAY ==
[2019-02-13 06:05] VITALS: BMI 29.5
--- NOTE | 2020-10-04 08:17 | CT_ITS ---
STUDY: CT TEMPORAL BONES WITHOUT CONTRAST - ATTN: I.A.C. S REASON FOR EXAM: Female, 74 years old. RT EAR CANAL NEOPLASM RADIATION DOSAGE (If Supplied By Facility): CTDIvol = ( 67.58 ) mGy, DLP = ( 848.57 ) mGycm TECHNIQUE: The patient was scanned in a multi detector CT scanner. Transaxial imaging was performed without the administration of intravenous contrast material. Sagittal and coronal images were reconstructed. Individualized dose optimization techniques were used for this CT. COMPARISON: Comparison is made with prior study dated 08/06/2014. FINDINGS: There is a 5.9 mm x 8.8 mm x 7.6 mm soft tissue mass in the distal portion of the right external auditory canal abutting the tympanic membrane. There is evidence of bony erosion along the anterior aspect of the distal ureter canal. RIGHT TEMPORAL BONE Normal right internal auditory canal. Normal visualized ossicles and tympanic cavity. Normal right cochlea and semicircular canals. Normal vestibular aqueduct. Normal right petrous carotid artery. Normal right jugular fossa. Normal right mastoid air cells. Normal right petrous apex. LEFT TEMPORAL BONE Normal left internal auditory canal. Normal visualized ossicles and tympanic cavity. Normal left cochlea and semicircular canals. Normal vestibular aqueduct. Normal left petrous carotid artery. Normal right jugular fossa. Normal left mastoid air cells. Normal left petrous apex. CT/Orb Sella Post Fossa Ear w/o IMPRESSION: 5.9 mm x 8.8 mm x 7.6 mm soft tissue mass in the distal portion of the right external auditory canal abutting the tympanic membrane with anterior bony erosion. Remainder of examination is unremarkable. Electronically Signed: Arley Frazier MD at 9:08 EDT , Service support ,
== END ==
PROVIDERS: PCP Family Medicine; Referring Provider Otolaryngology; Visit Provider Otolaryngology
DX: D49.2 Neoplasm of unspecified behavior of bone, soft tissue, and skin (principal)
CPT/HCPCS: 70480

== ENCOUNTER 2020-11-07 07:29 | Day surgery (SDC) | payer MEDICARE, OTHER, SELFPAY ==
[2019-02-13 06:05] VITALS: BMI 29.5
[2020-11-07] VITALS (7 sets, daily range): BP systolic 133–149; BP diastolic 69–96; PULSE 76–99; RESP 16; TEMP 35.9–36.4; O2SAT 94–100; BMI 26.1
--- NOTE | 2020-11-07 | MASS_PTH ---
PATIENT: AKIRA CHRISTENSEN LOC: [facility] [place] U#:[id number] AGE/SX: 74/F ROOM: RE11/07/[address]: Dr. Jayesh Lo MD : 1945 BED: DIS: 11/07/2020 SPEC #: [id number] RECD: 11/07/20 13:05 STATUS: BENEDICTO RESandra #: [id number] ADÁN: 11/07/20 00:[address]: Jayesh Lo DEPT: SURGICAL PATHOLOGY RECD BY: Rory Curtis ENTERED: 11/07/20 13:05 SP TYPE: Mass OTHR DR: Dr. Renee Briscoe MD Tissues: A - Ear, NOS B - Ear, NOS Procedures: Decalcification bone/plaque Surgery Specimen Level III HEADER OPERATION: Excision external auditory canal lesion with skin graft PRE-OP DIAGNOSIS: Ear canal mass/cholesteotoma, right ear TISSUE SUBMITTED: A ? Ear canal mass right ear, B ? Ear canal skin margin right ear MICROSCOPIC DIAGNOSIS A. Ear canal mass, right ear, biopsy: Fragments of keratinous material, consistent with cholesteotoma. Negative for malignancy. B. Right ear canal skin margin: A piece of skin with extensive dermal fibrosis. Negative for malignancy. See comment. JANETH:miguel 11/10/2020 COMMENT Clinical correlation and appropriate follow up are necessary. MICROSCOPIC DESCRIPTION Slides are reviewed. GROSS DESCRIPTION A - Received in fixative is one container labeled with the patient's name and designated right ear canal mass. The specimen consists of two irregular fragments of patel, gritty tissue that in aggregate measure 1.5 x 0.5 x 0.2 cm. The specimen is totally submitted in one cassette after decalcification. B - Received in fixative is one container labeled with the patient's name and designated right ear canal skin margin. The specimen consists of an irregular fragment of light patel tissue measuring 0.2 x 0.1 x <0.1 cm. The specimen is totally submitted in one cassette. / AM:miguel 11/07/20 TC:5 CPT: 45796 x2, 07720
--- NOTE | 2020-11-07 07:38 | EKG12_ITS ---
Test Reason : PREOP Blood Pressure : / mmHG Vent. Rate : 078 BPM Atrial Rate : 078 BPM P-R Int : 176 ms QRS Dur : 144 ms QT Int : 430 ms P-R-T Axes : 012 -68 047 degrees QTc Int : 490 ms Normal sinus rhythm Right bundle branch block Left anterior fascicular block Bifascicular block Voltage criteria for left ventricular hypertrophy Confirmed by CEASAR WINSLOW, SHAHEEN ([id number]), assignment editor SWETA HUYNH ([id number]) on 11/10/2020 1:53:41 PM Referred By: Jayesh Lo Confirmed By:SHAHEEN MCDONOUGH MD
[2020-11-07 08:47] LABS: Hematocrit 43.9 % (37-47); Hemoglobin 14.6 g/dL (12.0-15.0); Mean Corp Hgb Conc 33.3 g/dL (32-36); Mean Corpuscular Hgb 30.9 pg (27.0-32.0); Mean Corpuscular Volume 92.8 fL (81-99); Mean Platelet Vol. 10.7 fl (6.2-12.0); Platelet Count 159 K/mm3 (150-450); RBC Distribution Width CV 13.2 % (11.6-14.6); RBC Distribution Width SD 45.4 fl (35.1-43.9); Red Blood Count 4.73 M/mm3 (4.2-5.4); White Blood Count 4.9 K/mm3 (4.4-11.0)
[2020-11-07] MEDS: Ciprofloxacin 0.3% 2.5ml Bottle 1 DRP (08:53)
--- NOTE | 2020-11-07 09:00 | PCM.DC.SUM ---
Providers Primary Care Physician: Dr. Renee Briscoe MD Reason For Visit: EXCISION AUDITORY CANAL LESION W SKIN GRAFT Medications at Discharge Home Medications amlodipine 5 mg tablet 5 mg PO QDAY 03/07/17 ascorbic acid (vitamin C) 500 mg capsule 500 mg PO DAILY 03/07/17 calcium citrate 250 mg calcium-vitamin D3 5 mcg (200 unit) tablet 1 tab PO BID tab 03/07/17 estradiol 0.5 mg tablet 0.5 mg PO QDAY 03/07/17 ferrous sulfate 134 mg (27 mg iron) tablet 134 mg PO QDAY tab 03/07/17 flunisolide 25 mcg (0.025 %) nasal spray 2 spray INTRANASAL BID 03/07/17 folic acid 0.8 mg capsule 800 mcg PO QDAY 03/07/17 hydroxychloroquine 200 mg tablet 300 mg PO QDAY tab 03/07/17 infliximab 100 mg intravenous solution See Rx Instructions .ROUTE .COMPLEX 03/07/17 lisinopril 20 mg tablet 20 mg PO BID 03/07/17 methotrexate sodium 2.5 mg tablet 7.5 tab PO THEODORE tab 03/07/17 multivitamin 1 tab PO QDAY 03/07/17 omeprazole 20 mg capsule,delayed release 20 mg PO BID 03/07/17 potassium gluconate 2.5 mEq tablet 2.5 meq PO QDAY tab 03/07/17 simvastatin 20 mg tablet 20 mg PO QPM 03/07/17 glucos sul [id number]-C-Mn 1 ea PO DAILY 02/09/19 levothyroxine 137 mcg PO MOTUWETHFRSA 02/09/19 docosahexaenoic acid [DHA Algal-900] 900 mg PO DAILY 10/31/20 Weight / BMI Weight Weight: 69 kg Body Mass Index (BMI) 26.1 ABG / Lab / Microbiology Data Result Diagrams: 11/07/20 08:40 11/07/20 08:40 Laboratory: Laboratory Results - last 24 hr 11/07/20 08:40: WBC 4.9, RBC 4.73, Hgb 14.6, Hct 43.9, MCV 92.8, MCH 30.9, MCHC 33.3, RDW Std Deviation 45.4 H, RDW Coeff of Darleen 13.2, Plt Count 159, MPV 10.7 D/C Instructions Discharge Diet: No restrictions Additional Activity Instructions: Remove ear dressing (cup) tomorrow morning 11/08/20 and discard. You will see a cotton ball. Remove this and discard. You will see gauze with purple/blue on it. Leave this in place. Apply ear drops to the bluish gauze...5 drops Three times per day. Keep this gauze wet with ear drops only (no shower water). You may place a cotton ball next to the gauze. Remove the white tape from the right thigh in 2 days. You will see a clear (cellophane looking) tape.. LEAVE the clear tape on for 2 weeks. Please Follow Up With: Jayesh Lo MD When: end of next week. please call to schedule an appointment. Meaningful Use Info Meaningful Use Diagnoses (Choose all that apply): None applicable Discharge Plan Admission Attending Provider: Jayesh Lo Primary Care Provider: Renee Briscoe Discharge Orders/Prescriptions Prescriptions: No Action infliximab [Remicade] 100 mg recon soln See Rx Instructions .ROUTE .COMPLEX RF: 0 methotrexate sodium 2.5 mg tablet 7.5 tab PO THEODORE RF: 0 hydroxychloroquine 200 mg tablet 300 mg PO QDAY RF: 0 lisinopril 20 mg tablet 20 mg PO BID RF: 0 amlodipine 5 mg tablet 5 mg PO QDAY RF: 0 simvastatin 20 mg tablet 20 mg PO QPM RF: 0 omeprazole 20 mg capsule,delayed release(DR/EC) 20 mg PO BID RF: 0 estradiol 0.5 mg tablet 0.5 mg PO QDAY RF: 0 flunisolide 25 mcg (0.025 %) spray,non-aerosol 2 spray INTRANASAL BID RF: 0 multivitamin tablet 1 tab PO QDAY RF: 0 calcium citrate 250 mg calcium-vitamin D3 200 unit tablet 250 mg calcium- 200 unit tablet 1 tab PO BID RF: 0 ascorbic acid (vitamin C) 500 mg capsule 500 mg PO DAILY RF: 0 folic acid 0.8 mg capsule 800 mcg PO QDAY RF: 0 potassium gluconate 2.5 mEq tablet 2.5 meq PO QDAY RF: 0 ferrous sulfate 134 mg (27 mg iron) tablet 134 mg (27 mg iron) tablet 134 mg PO QDAY RF: 0 glucos sul [id number]-cgegh-C-Mn 1 EACH capsule 1 ea PO DAILY RF: 0 levothyroxine 137 MCG tablet 137 mcg PO MOTUWETHFRSA RF: 0 DHA Algal-900 300 mg Capsule 900 mg PO DAILY RF: 0 Disposition Discharge Orders: Discharge Patient (Routine); Ordered 11/07/20 Ordered By: Dr. Jayesh Lo
[2020-11-07 09:14] LABS: Anion Gap 4 (5-15); BUN 17 mg/dL (7-18); BUN/Creat Ratio 18.8 RATIO (10-20); Calcium,Total 9.4 mg/dL (8.5-10.1); Chloride 109 mmol/L (98-107); EST Glomerular Filtration Rate 65 mL/min (>60); Est Glom Filt Rate - Afr Amer 78 mL/min (>60); Estimated Creatinine Clearance 48.07 ml/min; Glucose 108 mg/dL (74-106); Potassium 4.2 mmol/L (3.5-5.1); Sodium Level 139 mmol/L (136-145)
[2020-11-07] MEDS: Epinephrine (1 mg/ml) 1 MG/ML VIAL ×2 (09:45→11:10)
[2020-11-07] MEDS: Lidocaine 1% /Epi 1:100 (20ml) 20 ML Vial (10:30)
--- NOTE | 2020-11-07 11:40 | OP.PCM_ITS ---
Report of Operation Date of Procedure: 11/07/20 Pre-Operative Diagnosis: right ear canal cholesteatoma/mass Post-Operative Diagnosis: same Surgery/Procedure Performed:: excision of right ear canal mass with split thickness skin graft (from the right thigh) reconstruction of the ear canal Surgeon: Jayesh Lo Type of Anesthesia: General Anesthesiologist: yael haney Drains: none Estimated Blood Loss (mL): minimal Description of Procedure: The patient was taken to the operating room on 11/07/2020. She was placed in the supine position on the operating room table. She was given sufficient general endotracheal anesthesia. The table was turned 90 degrees in a counterclockwise fashion. The right ear and right thigh were prepped and draped sterilely. The operating microscope was used throughout the entire case. I injected 1% lidocaine with epinephrine into the postauricular sulcus as well as the external auditory canal on the right. Next, a speculum herrera was used. The canal was dilated to the largest sized speculum. This gave me ample access to the ear canal given the pathology which had widen the c anal. Next I remove the mass with instruments. This was clearly involving the bone. I then used a ijeoma bur and drilled away diseased bone until healthy bone was encountered. I Was careful not to breach the ear canal anteriorly as this was where the bulk of the mass was found. The mass was sent for permanent section. I also sharply biopsied the skin on the periphery of the mass and sent this for permanent section. Next all irrigant and bone dust was suctioned from the external auditory canal. The tympanic membrane was left intact. I injected local anesthesia into the skin of the donor site. Next, I used a Jose dermatome to remove a 0.012 inch thick split-thickness skin graft from the right thigh (1x1 inch). This was pie crusted with a 15 blade. I then placed this into the external auditory canal to completely cover the exposed bone. I then placed strips of Xeroform circumferentially onto the skin graft. An andreia pack was then placed into the external auditory canal and inflated with Cipro drops. A Tegaderm and pressure dressing were applied to the donor site. A b Rivas dressing was applied to the ear. Patient was then awoken and brought to recovery room in stable condition blood loss minimal, replacement none. Sponge, needle, and instrument count were correct at the end the procedure.
== END 2020-11-07 13:28 | disposition home or self-care (01) ==
LOC: SDC 07:30 → AC 07:31
PROVIDERS: PCP Family Medicine; Referring Provider Otolaryngology; Visit Provider Otolaryngology
PROC: (CPT 15120; principal; 2020-11-07 08:45)
DX: H60.41 Cholesteatoma of right external ear (principal); H93.8X1 Other specified disorders of right ear; I10 Essential (primary) hypertension; E03.9 Hypothyroidism, unspecified; H26.9 Unspecified cataract; K21.9 Gastro-esophageal reflux disease without esophagitis; E78.00 Pure hypercholesterolemia, unspecified; G62.9 Polyneuropathy, unspecified; M19.90 Unspecified osteoarthritis, unspecified site; M85.80 Other specified disorders of bone density and structure, unspecified site; M06.9 Rheumatoid arthritis, unspecified; Z87.01 Personal history of pneumonia (recurrent); Z87.440 Personal history of urinary (tract) infections; Z79.899 Other long term (current) drug therapy
CPT/HCPCS: 00300; 15120; 69145; 80048; 85027; 88304; 88305; 88311; 93005; J7120; J2405

== ENCOUNTER → 2021-11-23 | Outpatient (CLI) | payer MEDICARE, OTHER, SELFPAY ==
--- NOTE | 2021-11-23 | IMM_PTH ---
PATIENT: AKIRA CHRISTENSEN LOC: [facility] U#:[id number] AGE/SX: 75/F ROOM: RE11/23/[address]: Dr. Renee Briscoe MD : 1945 BED: DIS: 11/23/2021 SPEC #: [id number] RECD: 11/24/21 13:24 STATUS: BENEDICTO JALEESA #: [id number] ADÁN: 11/23/21 00:[address]: Renee Briscoe DEPT: IMMUNOHISTOCHEMISTRY RECD BY: Wilma Chun Tissues: Skin of buttock, NOS Procedures: p16 (initial) KI-67 (add) PHYSICIAN & INSTITUTION [place] [id number] SPECIMEN INFORMATION: Tissue Source: Left buttock Clinical Info: Growing pigmented lesion left buttock Specimen Number: [id number] CPT code: 29419, 37166 METHODOLOGY: Deparaffinized sections of prefer/formalin-fixed tissue or PAP/DQ stained slides are incubated with monoclonal/polyclonal antibodies/oligonucleotide probes. Localization is made via biotin free immunoperoxidase method. Appropriate controls are performed and reacted as expected. Results on target cell population are indicated in the following table: RESULTS: ANTIBODY / CLONE RESULT P16 (E6H4) positive, focal block staining Ki-67 (30-9) positive, high These tests were developed and their performance characteristics determined by [facility]. They may not have been cleared or approved by the U.S. Food and Drug Administration. The FDA has determined that such clearance or approval is not necessary. The above immunohistochemical/dualISH markers are ordered and reviewed by the Pathologist. 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 JANETH:miguel 11/27/2021
--- NOTE | 2021-11-23 | LES_PTH ---
PATIENT: AKIRA CHRISTENSEN LOC: [facility] U#:[id number] AGE/SX: 75/F ROOM: RE11/23/[address]: Dr. 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 See comment. JANETH:miguel 11/24/2021 COMMENT Immunohistochemistry ([id number]) for surrogate HPV marker (p16) supports the above diagnosis. Clinical correlation and appropriate follow-up are necessary. Case has been reviewed in consultation with Dr. Burnett who concurs with the above diagnosis. IDC:AM MICROSCOPIC DESCRIPTION Slides are reviewed. GROSS DESCRIPTION Received is one container labeled with the patient's name and not further designated. The specimen consists of a patel-white skin measuring 0.5 x 0.1 x 0.2 cm. The entire specimen is submitted in one cassette. / SJ:rg 11/23/2021 TC:5 CPT: 80989
== END | disposition home or self-care (01) ==
LOC: LABSPEC 09:55
PROVIDERS: PCP Family Medicine; Visit Provider Family Medicine
DX: L81.9 Disorder of pigmentation, unspecified (principal)
CPT/HCPCS: 88305; 88341; 88342

== ENCOUNTER 2022-04-10 08:20 | Inpatient (IN) | payer MEDICARE, OTHER, SELFPAY ==
[2022-04-10] VITALS (16 sets, daily range): BP systolic 70–159; BP diastolic 46–82; PULSE 56–92; RESP 14–18; TEMP 36.1–37.6; O2SAT 94–100; BMI 28.3; BMI 28.9
--- NOTE | 2022-04-10 08:39 | EKG12_ITS ---
Test Reason : CP Blood Pressure : / mmHG Vent. Rate : 056 BPM Atrial Rate : 056 BPM P-R Int : 200 ms QRS Dur : 152 ms QT Int : 498 ms P-R-T Axes : 009 -68 057 degrees QTc Int : 480 ms Sinus bradycardia Right bundle branch block Left anterior fascicular block Bifascicular block Left ventricular hypertrophy ( R in aVL , Romhilt-Gomez ) Abnormal ECG Confirmed by GINI WINSLOW, RADHA ([id number]), state editor MIR FLORES ([id number]) on 04/11/2022 8:51:26 AM Referred By: MISSAEL Confirmed By:RADHA RUBALCAVA MD
--- NOTE | 2022-04-10 08:42 | EX.ED.DYSGE1 ---
HPI History of Present Illness Chief Complaint: Chest Pain Detail of Chief Complaint: Chest pain, indigestion Informant: patient Narrative Narrative: Patient states that last evening she had some mild indigestion with reflux. She went to bed and did not think much of it. She woke up at 630 this morning and felt back to baseline. She ate oatmeal for breakfast. Shortly after this she developed pain with nausea, vomiting, diarrhea. She complains of pain across her lower chest and down into her abdomen. She states that her vision went blue and she felt lightheaded and sweaty. EMS was called. They gave 1 nitro and patient's blood pressure dropped into the 70s systolic. At the time of my exam she is on IV fluids and blood pressure is improving. [facility] Medical History Alcohol use Bladder disease Bone fracture Breast lump Broken femur Cataracts, bilateral Femur fracture, right Former smoker Gastric reflux GI problem High cholesterol History of steroid therapy History of stress test HTN (hypertension) Hypothyroidism Left foot amputee Low iron Neuropathy Osteoarthritis Osteopenia Pneumonia Rheumatoid arthritis Rheumatoid arthritis Seasonal allergies UTI (urinary tract infection) Vision problems Home Medications amlodipine 5 mg tablet 5 mg PO QDAY BP 03/07/17 [History Last Taken 11/07/20] ascorbic acid (vitamin C) 500 mg capsule 500 mg PO DAILY SUPPLEMENT 03/07/17 [History Last Taken Unknown] calcium citrate 250 mg calcium-vitamin D3 5 mcg (200 unit) tablet 1 tab PO BID SUPPLEMENT 03/07/17 [History Last Taken Unknown] estradiol 0.5 mg tablet 0.5 mg PO QDAY HORMONE 03/07/17 [History Last Taken Unknown] ferrous sulfate 134 mg (27 mg iron) tablet 134 mg PO QDAY 03/07/17 [History Last Taken Unknown] flunisolide 25 mcg (0.025 %) nasal spray 2 spray intranasal BID ALLERGIES 03/07/17 [History Last Taken Unknown] folic acid 0.8 mg capsule 800 mcg PO QDAY 03/07/17 [History Last Taken Unknown] hydroxychloroquine 200 mg tablet 300 mg PO QDAY RA 03/07/17 [History Last Taken Unknown] infliximab 100 mg intravenous solution (Remicade) See Rx Instructions .Route .COMPLEX 03/07/17 [History Last Taken 10/31/17] lisinopril 20 mg tablet 20 mg PO BID BP 03/07/17 [History Last Taken 11/07/20] methotrexate sodium 2.5 mg tablet 7.5 tab PO THEODORE RA 03/07/17 [History Last Taken Unknown] multivitamin 1 tab PO QDAY 03/07/17 [History Last Taken Unknown] omeprazole 20 mg capsule,delayed release 20 mg PO BID REFLUX 03/07/17 [History Last Taken 11/07/20] potassium gluconate 2.5 mEq tablet 2.5 meq PO QDAY 03/07/17 [History Last Taken Unknown] simvastatin 20 mg tablet 20 mg PO QPM 03/07/17 [History Last Taken Unknown] glucosamine sulf dipot chlr,msm,chond 550 mg-C 30 mg-whit 1 mg capsule 1 ea PO DAILY 02/09/19 [History Last Taken Unknown] levothyroxine 137 mcg tablet 137 mcg PO MOTUWETHFRSA 02/09/19 [History Last Taken Unknown] docosahexaenoic acid 300 mg capsule (DHA Algal-900) 900 mg PO DAILY 10/31/20 [History Last Taken Unknown] Allergy/AdvReac Type Severity Reaction Status Date / Time adhesive tape Allergy Severe Unknown Verified 09/18/21 17:07 grass pollen Allergy Severe Unknown Verified 11/07/20 07:38 house dust Allergy Severe Unknown Verified 11/07/20 07:38 Family History Mother Thyroid disorder Grandmother Diabetes Osteoporosis Grandfather Arthritis Surgical History H/O Achilles tendon repair H/O colonoscopy H/O foot surgery H/O shoulder replacement H/O thyroidectomy H/O: hysterectomy Status post fusion of wrist Social History Smoking Status: Former smoker second hand exposure: No alcohol intake: never substance use type: does not use ROS ROS ED Constitutional Constitutional ED: Denies chills or fever(s) Eyes Eyes: Denies change in vision or discharge from eye(s) ENT ENT ED: Denies discharge from eye(s), rhinorrhea or sore throat Cardiovascular Cardiovascular: Reports chest pain; Denies palpitations Respiratory/Chest Respiratory/Chest: Denies cough or dyspnea Gastrointestinal Gastrointestinal: Reports abdominal pain, diarrhea, nausea and vomiting Genitourinary Genitourinary ED: Denies dysuria Musculoskeletal Musculoskeletal: Denies back pain or extremity pain Integumentary Denies Abrasions or rash Neurologic Neurologic: Reports weakness; Denies headache(s) Psychiatric Psychiatric: Denies anxiety or depression Allergic/Immunologic Allergic/Immunologic ED: Denies lip swelling or urticaria EXAM Physical Exam Const Vital Signs: 04/10/22 08:20 04/10/22 08:32 04/10/22 08:46 Temperature 97.2 F L Temperature Source Oral Pulse Rate 56 L 56 L Respiratory Rate 18 Blood Pressure 70/46 L 85/50 L Blood Pressure Mean 54 61 Pulse Ox 95 Oxygen Delivery Method Room Air Room Air 04/10/22 11:26 04/10/22 12:11 Temperature Temperature Source Pulse Rate 74 65 Respiratory Rate 18 17 Blood Pressure 142/71 H 139/68 H Blood Pressure Mean 94 91 Pulse Ox 97 97 Oxygen Delivery Method Room Air Room Air Positive well nourished and well developed General Appearance ED: well developed HEENT Reports normocephalic and head/scalp atraumatic Eyes PERRL and EOMs intact bilaterally Neck supple Chest Wall inspection of chest normal and palpation of chest normal Resp normal respiratory effort and clear to auscultation bilaterally Cardio regular rate and regular rhythm GI non-tender Auscultation: hypoactive bowel sounds Palpation: soft Extremity normal to inspection Neuro oriented x3 and no sensory deficits noted Neuro Narrative: Generalized weakness with no focal deficits. Sensorium / Orientation: alert Psych mental status grossly normal Skin no rashes or lesions noted MDM MDM MDM Narrative Medical decision making narrative: Patient is given IV fluids. She is placed on engine monitor. EKG, chest x-ray, lab work obtained. Lab Data Attestation: I reviewed the patient's lab results. Labs: Laboratory Results - last 24 hr 04/10/22 04/10/22 04/10/22 08:30 08:30 11:28 WBC 8.1 RBC 5.09 Hgb 15.3 H Hct 47.2 H MCV 92.7 MCH 30.1 MCHC 32.4 RDW Std Deviation 46.8 H RDW Coeff of Darleen 13.8 Plt Count 217 MPV 11.0 Immature Gran % (Auto) 0.100 Neut % (Auto) 45.8 L Lymph % (Auto) 46.6 H Talbot % (Auto) 5.2 Eos % (Auto) 1.8 Baso % (Auto) 0.5 Absolute Neuts (auto) 3.7 Absolute Lymphs (auto) 3.78 Nucleated RBC % 0 Sodium 140 Potassium 3.7 Chloride 107 Carbon Dioxide 26.0 Anion Gap 7 BUN 19 H Creatinine 1.21 H Estim Creat Clear Calc 34.69 Est GFR (MDRD) Af Amer 56 L Est GFR (MDRD) Non-Af 46 L BUN/Creatinine Ratio 15.7 Glucose 199 H Calcium 9.6 Total Bilirubin 0.90 Direct Bilirubin 0.32 H AST 50 H ALT 43 Alkaline Phosphatase 69 Troponin I High Sens 57 H 50 Total Protein 7.6 Albumin 3.7 Globulin 3.9 Lipase 4813 H Radiography Chest X-Ray - ED: 1 View, Read by ED Physician, Chronic Changes and No Infiltrates Diagnostic Testing: Clinical Impression(s) from Imaging Studies Chest X-Ray 04/10/22 09:05 IMPRESSION: Hyperinflation. Mild degree of increased markings at the left lung base suggestive of either atelectasis and/or scarring. Electronically Signed: Arley Frazier MD at 9:50 EST , Gallbladder Ultrasound 04/10/22 10:13 IMPRESSION: Gallbladder wall thickening and mild distention. Multiple gallstones. Sludge is seen within the gallbladder lumen. Dilated common bile duct. Electronically Signed: Arley Frazier MD at 11:25 EST , EKG Initial EKG: Attestation: I personally reviewed and interpreted this EKG as follows: Interpretation: Sinus Bradycardia (Sinus at 56 with bifascicular block. Similar in appearance to prior study from 2020.) Treatment and Re-Evaluation Narrative: CBC reveals normal white count with no left shift. Chemistry studies remarkable only for a BUN of 19 and creatinine 1.21. Glucose is 199. Initial troponin is minimally elevated at 57. LFTs reveal direct bilirubin of 0.32 and an AST of 50. ALT is normal at 43. Lipase is elevated at 4813. Patient is sent for right upper quadrant ultrasound. This reveals gallbladder wall thickening with mild distention of multiple gallstones. Common bile duct is dilated but no stone is visualized in the duct at this time. Delta troponin is performed and returns at 50. I spoke with Dr. Aldridge who presented to the emergency room to evaluate the patient. He will admit her to his service with plan to go to the OR today for cholecystectomy. Patient is given a dose of Zosyn. Discharge Plan Triage Chief Complaint: Chest Pain ED Provider: Guera Salomon Dx/Rx/DC Orders Clinical Impression: Gallstone pancreatitis Prescriptions: No Action infliximab [Remicade] 100 mg recon soln See Rx Instructions .ROUTE .COMPLEX Label Comments: q 60 days Rx Instructions: q 60 days methotrexate sodium 2.5 mg tablet 7.5 tab PO THEODORE hydroxychloroquine 200 mg tablet 300 mg PO QDAY lisinopril 20 mg tablet 20 mg PO BID amlodipine 5 mg tablet 5 mg PO QDAY simvastatin 20 mg tablet 20 mg PO QPM omeprazole 20 mg capsule,delayed release(DR/EC) 20 mg PO BID estradiol 0.5 mg tablet 0.5 mg PO QDAY flunisolide 25 mcg (0.025 %) spray,non-aerosol 2 spray INTRANASAL BID multivitamin tablet 1 tab PO QDAY calcium citrate 250 mg calcium-vitamin D3 200 unit tablet 250 mg calcium- 200 unit tablet 1 tab PO BID ascorbic acid (vitamin C) 500 mg capsule 500 mg PO DAILY folic acid 0.8 mg capsule 800 mcg PO QDAY potassium gluconate 2.5 mEq tablet 2.5 meq PO QDAY ferrous sulfate 134 mg (27 mg iron) tablet 134 mg (27 mg iron) tablet 134 mg PO QDAY glucos sul [id number] 1 EACH capsule 1 ea PO DAILY levothyroxine 137 MCG tablet 137 mcg PO MOTUWETHFRSA DHA Algal-900 300 mg Capsule 900 mg PO DAILY Primary Care Provider: Renee Briscoe Referrals: Renee Briscoe MD [Primary Care Provider] - Disposition Disposition: Acute Care Hospital [facility]
[2022-04-10] MEDS: 0.9% Normal Saline 1,000 ML 1000 ML IV (08:47)
[2022-04-10 08:57] LABS: Absolute Lymphocyte Count 3.78 X10^3/uL (0.83-4.51); Absolute Neutrophil Count 3.7 X10^3/uL (2.0-7.7); Basophil# 0.04 X10^3/uL; Basophil% 0.5 % (0-1); Eosinophil# 0.15 X10^3/uL; Eosinophils% 1.8 % (0-5); Hematocrit 47.2 % (37-47); Hemoglobin 15.3 g/dL (12.0-15.0); Lymphocyte # 3.78 X10^3/ul (0.83-4.51); Lymphocyte % 46.6 % (19-41); Mean Corp Hgb Conc 32.4 g/dL (32-36); Mean Corpuscular Hgb 30.1 pg (27.0-32.0); Mean Corpuscular Volume 92.7 fL (81-99); Monocyte# 0.42 X10^3/uL; Monocyte% 5.2 % (0-10); NRBC Flagged by Analyzer 0 % (0-5); Neutrophil # 3.71 X10^3/uL (2.7-7.7); Neutrophil % 45.8 % (47-70); Platelet Count 217 K/mm3 (150-450); RBC Distribution Width CV 13.8 % (11.6-14.6); RBC Distribution Width SD 46.8 fl (35.1-43.9); Red Blood Count 5.09 M/mm3 (4.2-5.4); White Blood Count 8.1 K/mm3 (4.4-11.0)
--- NOTE | 2022-04-10 09:05 | RAD_ITS ---
STUDY: X-RAY CHEST REASON FOR EXAM: Female, 76 years old. Chest pain TECHNIQUE: Single AP portable view of the chest. COMPARISON: None. FINDINGS: EKG electrodes are seen. Hyperinflation. Minimal increased markings at the left lung base suggests well either linear atelectasis and/or scarring. There is no demonstrated pleural abnormality. Normal size heart. Normal mediastinum and cristina. Normal visualized pulmonary arteries. There is atherosclerotic tortuosity of the aortic arch and descending thoracic aorta. There are diffuse degenerative changes of the visualized thoracic spine. Bilateral shoulder replacement. There is no demonstrated abnormality of the visualized soft tissue structures of the upper abdomen. RAD/Chest 1 View (Portable) IMPRESSION: Hyperinflation. Mild degree of increased markings at the left lung base suggestive of either atelectasis and/or scarring. Electronically Signed: Arley Frazier MD at 9:50 EST ,
[2022-04-10 09:23] LABS: AST(SGOT) 50 U/L (15-37); Alanine Aminotransfer ALT/SGPT 43 U/L (13-56); Albumin, Serum 3.7 g/dL (3.2-5.0); Alkaline Phosphatase 69 U/L (45-117); Anion Gap 7 (5-15); BUN 19 mg/dL (7-18); BUN/Creat Ratio 15.7 RATIO (10-20); Bilirubin, Direct 0.32 mg/dL (0.00-0.30); Calcium,Total 9.6 mg/dL (8.5-10.1); Chloride 107 mmol/L (98-107); Creatinine, Serum 1.21 mg/dL (0.55-1.02); EST Glomerular Filtration Rate 46 mL/min (>60); Est Glom Filt Rate - Afr Amer 56 mL/min (>60); Estimated Creatinine Clearance 34.69 ml/min; Globulin 3.9 g/dL (2.2-4.2); Glucose 199 mg/dL (74-106); Lipase 4813 U/L (73-393); Potassium 3.7 mmol/L (3.5-5.1); Protein, Total 7.6 g/dL (6.4-8.2); Sodium Level 140 mmol/L (136-145); Troponin-I HS (w/2H Reflex) 57 pg/mL (3.0-54.0)
[2022-04-10] MEDS: 0.9% Normal Saline 1,000 ML 150 ML IV (10:11)
--- NOTE | 2022-04-10 10:13 | US_ITS ---
STUDY: ABDOMINAL ULTRASOUND - RIGHT UPPER QUADRANT REASON FOR VISIT: Female, 76 years old pancreatitis TECHNIQUE: Ultrasound evaluation of the right upper quadrant was performed with real-time and static hannon-scale imaging. TECHNICAL QUALITY: Adequate. COMPARISON: None. FINDINGS: Liver: The liver measures 17.2 cm. There is normal echogenicity of the liver. The bile ducts are dilated. There is hepatic color flow. The direction of portal flow is hepatopetal. There is no demonstrated mass lesion. Gallbladder: The gallbladder is distended. The gallbladder wall is thickened and measures 5.6 mm. There is a negative sonographic Fried''s sign. There is no pericholecystic fluid. There are multiple echogenic structures within the gallbladder, consistent with multiple gallstones. Sludge is seen within the gallbladder lumen. Common Bile Duct (C.B.D.): The common bile duct is dilated and measures 12.9 mm. Pancreas: Normal size of the head, body of the pancreas. The tail portion is obscured due to overlying bowel gas. There is normal echogenicity of the pancreas. There is no demonstrated pancreatic mass or cyst. Right Kidney: Normal size of the right kidney. The right kidney measures 9.9 cm x 4.5 cm x 4.6 cm. Normal renal cortex. The right cortex measures 1.0 cm. There is no demonstrated renal mass or cyst. There is no right hydronephrosis. US/Gallbladder IMPRESSION: Gallbladder wall thickening and mild distention. Multiple gallstones. Sludge is seen within the gallbladder lumen. Dilated common bile duct. Electronically Signed: Arley Frazier MD at 11:25 EST ,
[2022-04-10 10:49] LABS: Reflex Troponin-HS? (from REC) Y
[2022-04-10 11:56] LABS: Troponin-I HS 50 pg/mL (3.0-54.0)
--- NOTE | 2022-04-10 13:19 | NURSING ---
PER DR GOMEZ. SURGERY ABOUT 5 PM
--- NOTE | 2022-04-10 13:20 | NURSING ---
MED SURG CALSELAM GALLSTONES, PANCREATITIS
--- NOTE | 2022-04-10 13:58 | PCM.HP.STD ---
HPI - General General Date of Admission: 04/10/22 HPI Narrative AKIRA CHRISTENSEN, is a 76 F who presents with epigastric pain. Patient says this started this morning around 7 AM. She had lower chest and epigastric pain which have now resolved. She is still having some right upper quadrant pain. She did have nausea but no vomiting and she denied fevers and chills. [facility] Medical History Alcohol use Bladder disease Bone fracture Breast lump Broken femur Cataracts, bilateral Femur fracture, right Former smoker Gastric reflux GI problem High cholesterol History of steroid therapy History of stress test HTN (hypertension) Hypothyroidism Left foot amputee Low iron Neuropathy Osteoarthritis Osteopenia Pneumonia Rheumatoid arthritis Rheumatoid arthritis Seasonal allergies UTI (urinary tract infection) Vision problems Home Medications amlodipine 5 mg tablet 5 mg PO QDAY BP 03/07/17 [History Last Taken 11/07/20] ascorbic acid (vitamin C) 500 mg capsule 500 mg PO DAILY SUPPLEMENT 03/07/17 [History Last Taken Unknown] calcium citrate 250 mg calcium-vitamin D3 5 mcg (200 unit) tablet 1 tab PO BID SUPPLEMENT 03/07/17 [History Last Taken Unknown] estradiol 0.5 mg tablet 0.5 mg PO QDAY HORMONE 03/07/17 [History Last Taken Unknown] ferrous sulfate 134 mg (27 mg iron) tablet 134 mg PO QDAY 03/07/17 [History Last Taken Unknown] flunisolide 25 mcg (0.025 %) nasal spray 2 spray intranasal BID ALLERGIES 03/07/17 [History Last Taken Unknown] folic acid 0.8 mg capsule 800 mcg PO QDAY 03/07/17 [History Last Taken Unknown] hydroxychloroquine 200 mg tablet 300 mg PO QDAY RA 03/07/17 [History Last Taken Unknown] infliximab 100 mg intravenous solution (Remicade) See Rx Instructions .Route .COMPLEX 03/07/17 [History Last Taken 10/31/17] lisinopril 20 mg tablet 20 mg PO BID BP 03/07/17 [History Last Taken 11/07/20] methotrexate sodium 2.5 mg tablet 7.5 tab PO THEODORE RA 03/07/17 [History Last Taken Unknown] multivitamin 1 tab PO QDAY 03/07/17 [History Last Taken Unknown] omeprazole 20 mg capsule,delayed release 20 mg PO BID REFLUX 03/07/17 [History Last Taken 11/07/20] potassium gluconate 2.5 mEq tablet 2.5 meq PO QDAY 03/07/17 [History Last Taken Unknown] simvastatin 20 mg tablet 20 mg PO QPM 03/07/17 [History Last Taken Unknown] glucosamine sulf dipot chlr,msm,chond 550 mg-C 30 mg-whit 1 mg capsule 1 ea PO DAILY 02/09/19 [History Last Taken Unknown] levothyroxine 137 mcg tablet 137 mcg PO MOTUWETHFRSA 02/09/19 [History Last Taken Unknown] docosahexaenoic acid 300 mg capsule (DHA Algal-900) 900 mg PO DAILY 10/31/20 [History Last Taken Unknown] Allergy/AdvReac Type Severity Reaction Status Date / Time adhesive tape Allergy Severe Unknown Verified 09/18/21 17:07 grass pollen Allergy Severe Unknown Verified 11/07/20 07:38 house dust Allergy Severe Unknown Verified 11/07/20 07:38 Family History Mother Thyroid disorder Grandmother Diabetes Osteoporosis Grandfather Arthritis Surgical History H/O Achilles tendon repair H/O colonoscopy H/O foot surgery H/O shoulder replacement H/O thyroidectomy H/O: hysterectomy Status post fusion of wrist Social History Smoking Status: Former smoker second hand exposure: No alcohol intake: never substance use type: does not use ROS Constitutional Constitutional: Denies anorexia, fatigue or fever(s) Eyes Eyes: Denies blurry vision ENT HEENT: Denies abnormal hearing Respiratory/Chest Respiratory/Chest: Denies cough or dyspnea Gastrointestinal Gastrointestinal: Reports abdominal pain and nausea; Denies constipation, diarrhea or vomiting Genitourinary Genitourinary: Denies change in urinary stream Musculoskeletal Musculoskeletal: Denies abnormal gait Integumentary Integumentary: Denies jaundice Psychiatric Psychiatric: Denies anxiety Endocrine Endocrinology: Denies flushing Hematologic/Lymphatic Hematologic/Lymphatic: Denies easy bleeding Vital Signs Vital Signs Vital Signs: 04/10/22 08:20 04/10/22 08:32 04/10/22 08:46 Temperature 97.2 F L Temperature Source Oral Pulse Rate 56 L 56 L Respiratory Rate 18 Blood Pressure 70/46 L 85/50 L Blood Pressure Mean 54 61 Pulse Ox 95 Oxygen Delivery Method Room Air Room Air 04/10/22 11:26 04/10/22 12:11 Temperature Temperature Source Pulse Rate 74 65 Respiratory Rate 18 17 Blood Pressure 142/71 H 139/68 H Blood Pressure Mean 94 91 Pulse Ox 97 97 Oxygen Delivery Method Room Air Room Air Weight Weight: 164 lb 10.965 oz Body Mass Index (BMI) 28.3 Physical Exam Const oriented x3 and no apparent distress Resp normal respiratory effort Cardio regular rate and regular rhythm GI soft to palpation Palpation: tender RUQ Extremity normal to inspection Results Lab / Micro Data Result Diagrams: 04/10/22 08:30 04/10/22 08:30 Labs: Laboratory Results - last 24 hr 04/10/22 08:30: WBC 8.1, RBC 5.09, Hgb 15.3 H, Hct 47.2 H, MCV 92.7, MCH 30.1, MCHC 32.4, RDW Std Deviation 46.8 H, RDW Coeff of Darelen 13.8, Plt Count 217, MPV 11.0, Immature Gran % (Auto) 0.100, Neut % (Auto) 45.8 L, Lymph % (Auto) 46.6 H, Haines % (Auto) 5.2, Eos % (Auto) 1.8, Baso % (Auto) 0.5, Absolute Neuts (auto) 3.7, Absolute Lymphs (auto) 3.78, Nucleated RBC % 0 04/10/22 08:30: Sodium 140, Potassium 3.7, Chloride 107, Carbon Dioxide 26.0, Anion Gap 7, BUN 19 H, Creatinine 1.21 H, Estim Creat Clear Calc 34.69, Est GFR (MDRD) Af Amer 56 L, Est GFR (MDRD) Non-Af 46 L, BUN/Creatinine Ratio 15.7, Glucose 199 H, Calcium 9.6, Total Bilirubin 0.90, Direct Bilirubin 0.32 H, AST 50 H, ALT 43, Alkaline Phosphatase 69, Troponin I High Sens 57 H, Total Protein 7.6, Albumin 3.7, Globulin 3.9, Lipase 4813 H 04/10/22 11:28: Troponin I High Sens 50 Radiology Impression Chest X-Ray 04/10/22 09:05 IMPRESSION: Hyperinflation. Mild degree of increased markings at the left lung base suggestive of either atelectasis and/or scarring. Electronically Signed: Arley Frazier MD at 9:50 EST , Gallbladder Ultrasound 04/10/22 10:13 IMPRESSION: Gallbladder wall thickening and mild distention. Multiple gallstones. Sludge is seen within the gallbladder lumen. Dilated common bile duct. Electronically Signed: Arley Frazier MD at 11:25 EST , Assessment & Plan Assessment/Plan (1) Gallstone pancreatitis: (2) Acute cholecystitis: PLAN: Plan The patient had his pain was in the epigastric area but the epigastric pain has resolved since coming to the emergency room. She is still having some right upper quadrant pain. Currently she denies nausea but she says she had some this morning. Ultrasound showed gallbladder wall thickening and ductal dilation with gallstones but her LFTs are normal. Her lipase is elevated. She likely has gallstone pancreatitis with possible acute cholecystitis. The stone in her duct may have passed as her pain has resolved. I recommend starting with laparoscopic cholecystectomy with cholangiogram today. I did discuss with her that if it shows a stone or obstruction she would need ERCP tomorrow. I discussed laparoscopic cholecystectomy with her in detail as well. I will admit her to the floor and plan on operating later today. She was given a dose of antibiotics in the emergency room. Patient is on methotrexate and Remicade for her rheumatoid arthritis and I did inform her of increased risk of complications due to this and she understands. I discussed the procedure in detail with the patient. I discussed the risks, benefits, and alternatives of the procedure. I discussed the risks including but not limited to bleeding, infection, injury to surrounding organs such as the liver, bile duct, bowels. I did discuss the possibility of having to convert to an open procedure as well as the possibility that if any injuries occurred this may necessitate further surgery at a tertiary care center. Victor M Aldridge MD Pager: [facility] [address] [place] [address], [address] [place] [address] Office:
[2022-04-10] MEDS: 0.9% Normal Saline 1,000 ML 15 ML IV (15:52)
[2022-04-10] MEDS: Bupivacaine 0.25% 30 ML Vial (16:18)
--- NOTE | 2022-04-10 16:21 | RAD_ITS ---
CLINICAL HISTORY: Female, 76 years old. Laparoscopic cholecystectomy PROCEDURE: CHOLANGIOGRAM - intraoperative FLUOROSCOPY TIME (if supplied): (27.6 seconds) Placement of the catheter and the procedure were performed by: Operating surgeon Fluoroscopy was provided by nuclear medical technologist, who was present in the room time of the procedure. TECHNIQUE: (All elements of maximal sterile barrier technique followed, including US elements as applicable) Fluoroscopic guided intraoperative cholangiogram was performed in the anterior projection in usual fashion. 172 fluoroscopic guided images were obtained during the study to document observations during the procedure. For more complete information recommend correlation with surgical report. RAD/Cholangiogram/ O R,Initial IMPRESSION: Intraoperative transhepatic cholangiogram Electronically Signed: Edward Castle MD at 16:58 EST ,
--- NOTE | 2022-04-10 16:57 | OP.PCM_ITS ---
Report of Operation Date of Procedure: 04/10/22 Pre-Operative Diagnosis: Gallstone pancreatitis and acute cholecystitis Post-Operative Diagnosis: Same Surgery/Procedure Performed:: Laparoscopic cholecystectomy with cholangiogram Description of Surgical Findings:: Dilated common bile duct on IOC but no easily visible filling defect. Good filling of the duodenum. Specimen's removed: Gallbladder Description of Procedure: After obtaining informed consent patient was brought back to the operating room. General anesthesia was induced. The abdomen was prepped and draped in usual sterile fashion. A small midline incision was made superior to the umbilicus and deepened to the level of fascia. The fascia was elevated and incised. Next the peritoneum was elevated and incised in the same fashion. Finger sweep was performed and the Mazariegos trocar was placed into the abdomen. The balloon was inflated. The abdomen was inflated to 15 mmHg. Next a camera was introduced into the abdomen and the abdomen was inspected. Next under direct visualization three 5-mm ports were placed one subxiphoid and 2 subcostal. Next the gallbladder was elevated and retracted toward the right shoulder. The peritoneum was stripped from the gallbladder. The infundibulum was located and retracted laterally. Next the triangle of Calot was dissected and the cystic duct and cystic artery were identified. Cholangiograms were performed. The Dobbins clamp was used to clamp across the infundibulum and the catheter needle was inserted into the gallbladder. Under fluoroscopy contrast was instilled into the gallbladder and the common duct, cystic duct as well as proximal hepatic ducts were identified. There was good filling of the duodenum. There were no filling defects noted in the common bile duct. The common bile duct was dilated. The clamp was removed as well as the needle and the infundibulum was grasped once more. Three hemolock clips were placed across the cystic duct. The cystic duct was then divided leaving 2 clips on the stump. The cystic artery was clipped and divided in the same fashion. The hook cautery was then used to take the gallbladder off of the gallbladder bed. Hemostasis was obtained. Gallbladder fossa was irrigated and no active bleeding or bile leakage was noted. Next the camera was introduced in the subxiphoid port. An Endopouch bag was placed through the umbilical port and the gallbladder was placed into it. The gallbladder was then removed through the umbilical incision. The camera was then reinserted through the umbilical port. The gallbladder fossa was inspected once more and noted to be hemostatic with no leaking bile. The abdomen was suctioned dry. The 5 mm ports were removed under direct visualization. The umbilical port was then removed and the air was removed from the abdomen. Next using an 0 Vicryl suture the umbilical fascia was closed in a [id number] fashion. The umbilical port site was irrigated local anesthetic was administered to all the incisions. All the incisions were closed with interrupted subcuticular 4-0 Monocryl sutures followed by Steri- Strips and dressings. The patient was awoken and taken to PACU in stable condition. Admit VTE Documentation VTE Mechan Device Prophylaxis: SCD's
--- NOTE | 2022-04-10 17:00 | GALL_PTH ---
PATIENT: AKIRA CHRISTENSEN LOC: MS3 U#:[id number] AGE/SX: 76/F ROOM: OH310 RE04/10/[address]: Dr. Victor M Aldridge MD : 1945 BED: 1 DIS: 04/11/2022 SPEC #: [id number] RECD: 04/11/22 08:33 STATUS: BENEDICTO LAZCANO #: [id number] ADÁN: 04/10/22 17:[address]: Victor M Aldridge DEPT: SURGICAL PATHOLOGY RECD BY: Kathy Ballard ENTERED: 04/11/22 09:32 SP TYPE: RONNY DELANEY DR: Dr. Renee Briscoe MD Tissues: Gallbladder, NOS Procedures: Surgery Specimen Level III HEADER OPERATION: Laparoscopic cholecystectomy with IOC PRE-OP DIAGNOSIS: Gallstone pancreatitis, acute cholecystitis TISSUE SUBMITTED: Gallbladder MICROSCOPIC DIAGNOSIS Gallbladder, cholecystectomy: Acute and chronic cholecystitis and cholelithiasis. Focal dysplastic changes. Focal changes consistent with Rokitansky-Aschoff sinuses. A benign pericystic lymph node. SJ:miguel 04/12/2022 COMMENT Case has been reviewed in consultation with Dr. Burnett who concurs with the above diagnosis. IDC:AM MICROSCOPIC DESCRIPTION Slides are reviewed. GROSS DESCRIPTION Received is one container labeled with the patient's name and designated gallbladder. The specimen consists of a gallbladder measuring 12.5 cm in length and up to 4.5 cm in diameter. The external surface is pink-patel, smooth and glistening for the most part. Focally it is granular, hemorrhagic and contains cautery artifact. The gallbladder is distended with green-yellow mucoid bile and contains multiple irregular black stones measuring in aggregate 3.0 x 2.5 x 0.5 cm and 0.1 to 0.5 cm in greatest dimension. Sections reveal a focal cystic area at the fundus measuring 0.7 cm in greatest dimension. The gallbladder also shows edematous cut surfaces. The gallbladder wall measures up to 0.5 cm in thickness. An ovoid nodule consistent with possible lymph node is also noted adjacent to the cystic duct measuring 1.0 cm in greatest dimension. Project Structural Engineer sections from the gallbladder, cystic duct and lymph node are submitted in two cassette. Cassette 1 contains the possible lymph node, entirely submitted. Cassette 2 contains the cyst area at the fundus. / SJ:rg 04/11/2022 TC:2 CPT: 66011
[2022-04-10] MEDS: Lactated Ringers 1,000 ML 15 ML IV (17:55)
[2022-04-10] MEDS: 0.9% Normal Saline 1,000 ML 100 ML IV (20:20)
--- NOTE | 2022-04-10 20:53 | CPS ---
Pt not in room, IS and PEP left in room
[2022-04-10] MEDS: Levothyroxine 137 MCG Tablet PO (22:24)
[2022-04-10] MEDS: Pantoprazole Sodium 20 MG Tablet PO (22:24)
[2022-04-10] MEDS: Atorvastatin Calcium 10 MG Tablet PO (22:24)
[2022-04-10] MEDS: Lisinopril 20 MG Tablet PO (22:24)
[2022-04-11 00:29] VITALS: BP 150/63; PULSE 87; RESP 16; TEMP 37.4; O2SAT 95
[2022-04-11] MEDS: Acetaminophen 325 MG Tablet 650 MG PO (00:54)
[2022-04-11 04:29] VITALS: BP 145/75; PULSE 74; RESP 16; TEMP 37; O2SAT 97
[2022-04-11] MEDS: 0.9% Normal Saline 1,000 ML 100 ML IV (05:52)
[2022-04-11 06:47] LABS: Absolute Lymphocyte Count 0.92 X10^3/uL (0.83-4.51); Absolute Neutrophil Count 3.6 X10^3/uL (2.0-7.7); Basophil# 0.01 X10^3/uL; Basophil% 0.2 % (0-1); Hematocrit 36.6 % (37-47); Hemoglobin 12.1 g/dL (12.0-15.0); Lymphocyte # 0.92 X10^3/ul (0.83-4.51); Lymphocyte % 19.1 % (19-41); Mean Corp Hgb Conc 33.1 g/dL (32-36); Mean Corpuscular Hgb 30.5 pg (27.0-32.0); Mean Corpuscular Volume 92.2 fL (81-99); Mean Platelet Vol. 10.8 fl (6.2-12.0); Monocyte# 0.31 X10^3/uL; Monocyte% 6.4 % (0-10); NRBC Flagged by Analyzer 0 % (0-5); Neutrophil # 3.57 X10^3/uL (2.7-7.7); Neutrophil % 74.1 % (47-70); Platelet Count 131 K/mm3 (150-450); RBC Distribution Width CV 13.8 % (11.6-14.6); RBC Distribution Width SD 46.9 fl (35.1-43.9); Red Blood Count 3.97 M/mm3 (4.2-5.4); White Blood Count 4.8 K/mm3 (4.4-11.0)
[2022-04-11 07:16] LABS: ALB/GLOB Ratio 0.9 RATIO (0.9-2.4); AST(SGOT) 79 U/L (15-37); Alanine Aminotransfer ALT/SGPT 80 U/L (13-56); Alkaline Phosphatase 58 U/L (45-117); Anion Gap 6 (5-15); BUN 14 mg/dL (7-18); BUN/Creat Ratio 18.6 RATIO (10-20); Calcium,Total 8.6 mg/dL (8.5-10.1); Chloride 113 mmol/L (98-107); Creatinine, Serum 0.75 mg/dL (0.55-1.02); EST Glomerular Filtration Rate 80 mL/min (>60); Est Glom Filt Rate - Afr Amer 96 mL/min (>60); Estimated Creatinine Clearance 41.97 ml/min; Globulin 3.3 g/dL (2.2-4.2); Glucose 110 mg/dL (74-106); Lipase 70 U/L (73-393); Potassium 3.8 mmol/L (3.5-5.1); Protein, Total 6.3 g/dL (6.4-8.2); Sodium Level 142 mmol/L (136-145)
[2022-04-11 08:16] VITALS: BP 152/85; PULSE 74; RESP 16; TEMP 37.3; O2SAT 97
[2022-04-11] MEDS: amLODIPine 5 MG Tablet PO (08:43)
[2022-04-11] MEDS: Folic Acid 1 MG Tablet PO (08:44)
[2022-04-11] MEDS: Pantoprazole Sodium 20 MG Tablet PO (08:44)
[2022-04-11] MEDS: Lisinopril 20 MG Tablet PO (08:44)
[2022-04-11] MEDS: Hydroxychloroquine 200 MG Tablet 300 MG PO (08:44)
--- NOTE | 2022-04-11 08:44 | DS.PCM_ITS ---
Providers Date of Admission: 04/10/22 Primary Care Physician: Dr. Renee Briscoe MD Reason For Visit: chest pain Diagnosis Discharge Diagnosis (1) Gallstone pancreatitis: Status: Acute Code(s): K85.10 - Biliary acute pancreatitis without necrosis or infection (2) Acute cholecystitis: Status: Acute Code(s): K81.0 - Acute cholecystitis Plan The patient had his pain was in the epigastric area but the epigastric pain has resolved since coming to the emergency room. She is still having some right upper quadrant pain. Currently she denies nausea but she says she had some this morning. Ultrasound showed gallbladder wall thickening and ductal dilation with gallstones but her LFTs are normal. Her lipase is elevated. She likely has gallstone pancreatitis with possible acute cholecystitis. The stone in her duct may have passed as her pain has resolved. I recommend starting with laparoscopic cholecystectomy with cholangiogram today. I did discuss with her that if it shows a stone or obstruction she would need ERCP tomorrow. I dis cussed laparoscopic cholecystectomy with her in detail as well. I will admit her to the floor and plan on operating later today. She was given a dose of antibiotics in the emergency room. Patient is on methotrexate and Remicade for her rheumatoid arthritis and I did inform her of increased risk of complications due to this and she understands. I discussed the procedure in detail with the patient. I discussed the risks, benefits, and alternatives of the procedure. I discussed the risks including but not limited to bleeding, infection, injury to surrounding organs such as the liver, bile duct, bowels. I did discuss the possibility of having to convert to an open procedure as well as the possibility that if any injuries occurred this may necessitate further surgery at a tertiary care center. Victor M Aldridge MD Pager: [facility] [address] [place] [address], [address] [place] [address] Office: Medications at Discharge Home Medications amlodipine 5 mg tablet 5 mg PO QDAY BP 03/07/17 ascorbic acid (vitamin C) 500 mg capsule 500 mg PO DAILY SUPPLEMENT 03/07/17 calcium citrate 250 mg calcium-vitamin D3 5 mcg (200 unit) tablet 1 tab PO BID SUPPLEMENT 03/07/17 estradiol 0.5 mg tablet 0.5 mg PO QDAY HORMONE 03/07/17 ferrous sulfate 134 mg (27 mg iron) tablet 134 mg PO QDAY 03/07/17 flunisolide 25 mcg (0.025 %) nasal spray 2 spray intranasal BID ALLERGIES 03/07/17 folic acid 0.8 mg capsule 800 mcg PO QDAY 03/07/17 hydroxychloroquine 200 mg tablet 300 mg PO QDAY RA 03/07/17 infliximab 100 mg intravenous solution (Remicade) See Rx Instructions .Route .COMPLEX 03/07/17 lisinopril 20 mg tablet 20 mg PO BID BP 03/07/17 methotrexate sodium 2.5 mg tablet 7.5 tab PO THEODORE RA 03/07/17 multivitamin 1 tab PO QDAY 03/07/17 omeprazole 20 mg capsule,delayed release 20 mg PO BID REFLUX 03/07/17 potassium gluconate 2.5 mEq tablet 99 meq PO QDAY 03/07/17 simvastatin 20 mg tablet 20 mg PO QPM 03/07/17 glucosamine sulf dipot chlr,msm,chond 550 mg-C 30 mg-whit 1 mg capsule 1 ea PO DAILY 02/09/19 levothyroxine 137 mcg tablet 137 mcg PO MOTUWETHFRSA 02/09/19 docosahexaenoic acid 300 mg capsule (DHA Algal-900) 900 mg PO DAILY 10/31/20 acetaminophen 325 mg tablet (Tylenol) 650 mg PO Q4H PRN PRN Pain 1-10 Or Fever #0 tabs 04/11/22 oxycodone 5 mg tablet 5 - 10 mg PO Q4H PRN PRN Pain Score 4-10 5 days #15 tabs 04/11/22 Hospital Course Operations cholecystecomy Summary of Care Provided Hospital Course: Patient was admitted with gallstone pancreatitis. She was taken for laparoscopic cholecystectomy with cholangiogram. Cholangiogram showed good flow through the common bile duct with a dilated duct. The following day she was doing well and her LFTs and white count did resolve. She was advanced on her diet and was tolerating diet she was discharged home. Physical Exam Const oriented x3 Resp normal respiratory effort GI soft to palpation and non-tender Weight / BMI Weight Weight: 168 lb 6.931 oz Body Mass Index (BMI) 28.9 ABG / Lab / Microbiology Data Result Diagrams: 04/11/22 06:30 04/11/22 06:30 Laboratory: Laboratory Results - last 24 hr 04/10/22 08:30: WBC 8.1, RBC 5.09, Hgb 15.3 H, Hct 47.2 H, MCV 92.7, MCH 30.1, MCHC 32.4, RDW Std Deviation 46.8 H, RDW Coeff of Darleen 13.8, Plt Count 217, MPV 11.0, Immature Gran % (Auto) 0.100, Neut % (Auto) 45.8 L, Lymph % (Auto) 46.6 H, [place] % (Auto) 5.2, Eos % (Auto) 1.8, Baso % (Auto) 0.5, Absolute Neuts (auto) 3.7, Absolute Lymphs (auto) 3.78, Nucleated RBC % 0 04/10/22 08:30: Sodium 140, Potassium 3.7, Chloride 107, Carbon Dioxide 26.0, Anion Gap 7, BUN 19 H, Creatinine 1.21 H, Estim Creat Clear Calc 34.69, Est GFR (MDRD) Af Amer 56 L, Est GFR (MDRD) Non-Af 46 L, BUN/Creatinine Ratio 15.7, Glucose 199 H, Calcium 9.6, Total Bilirubin 0.90, Direct Bilirubin 0.32 H, AST 50 H, ALT 43, Alkaline Phosphatase 69, Troponin I High Sens 57 H, Total Protein 7.6, Albumin 3.7, Globulin 3.9, Lipase 4813 H 04/10/22 11:28: Troponin I High Sens 50 04/11/22 06:30: WBC 4.8, RBC 3.97 L, Hgb 12.1, Hct 36.6 L, MCV 92.2, MCH 30.5, MCHC 33.1, RDW Std Deviation 46.9 H, RDW Coeff of Darleen 13.8, Plt Count 131 L, MPV 10.8, Immature Gran % (Auto) 0.200, Neut % (Auto) 74.1 H, Lymph % (Auto) 19.1, [place] % (Auto) 6.4, Eos % (Auto) 0.0, Baso % (Auto) 0.2, Absolute Neuts (auto) 3.6, Absolute Lymphs (auto) 0.92, Nucleated RBC % 0 04/11/22 06:30: Sodium 142, Potassium 3.8, Chloride 113 H, Carbon Dioxide 23.0, Anion Gap 6, BUN 14, Creatinine 0.75, Estim Creat Clear Calc 41.97, Est GFR (MDRD) Af Amer 96, Est GFR (MDRD) Non-Af 80, BUN/Creatinine Ratio 18.6, Glucose 110 H, Calcium 8.6, Total Bilirubin 0.70, AST 79 H, ALT 80 H, Alkaline Phosphatase 58, Total Protein 6.3 L, Albumin 3.0 L, Globulin 3.3, Albumin/Rivka bulin Ratio 0.9, Lipase 70 L Radiography Diagnostic Testing: Radiology Impression Chest X-Ray 04/10/22 09:05 IMPRESSION: Hyperinflation. Mild degree of increased markings at the left lung base suggestive of either atelectasis and/or scarring. Electronically Signed: Arley Frazier MD at 9:50 EST , Gallbladder Ultrasound 04/10/22 10:13 IMPRESSION: Gallbladder wall thickening and mild distention. Multiple gallstones. Sludge is seen within the gallbladder lumen. Dilated common bile duct. Electronically Signed: Arley Frazier MD at 11:25 EST , Cholangiogram 04/10/22 16:21 IMPRESSION: Intraoperative transhepatic cholangiogram Electronically Signed: Edward Castle MD at 16:58 EST , D/C Instructions Discharge Diet: Light diet - advance as tolerated Discharge Activity: May Drive (for 2-3 days or while taking narcotic pain medications.) and - (Do not drive, work heavy equipment or sign legal documents for 24 hours.) May shower in (days): 1 Lifting Restrictions: 20 lbs for 2 weeks Additional Activity Instructions: Pain medication may cause nausea. You should typically eat light foods as you take your pain medications. Pain medication may cause constipation. If this is a problem for you, please discuss with your doctor. Call your doctor if your incision/area has: Continuous Slow Oozing, Sudden Increased Bleeding, Increased Pain/ Swelling, Increased Redness and Foul Smelling Discharge Call your doctor if you observe: Fever of 101 or Higher Suture Line Care: Avoid Pulling/Pushing and Avoid Pinching/Bending Remove Dressing in: 2 days Additional Dressing/Incision Instructions: Leave operative bandaids on for 2 days. When you remove dressing, leave Steri-Strips on until your follow-up appointment, or until the Steri-Strips fall off on their own. Please Follow Up With: Victor M Aldridge MD When: Please call to schedule 2 week follow up appointment at [phone] Meaningful Use Info Meaningful Use Diagnoses (Choose all that apply): None applicable Discharge Plan Admission Admit Date/Time: 04/10/22 18:25 Attending Provider: Victor M Aldridge Primary Care Provider: Renee Briscoe Discharge Orders/Prescriptions Prescriptions: New acetaminophen [Tylenol] 325 mg Tablet 650 mg PO Q4H PRN PRN (Reason: Pain 1-10 Or Fever) Qty: 0 0RF oxycodone 5 mg Tablet 5 - 10 mg PO Q4H PRN PRN (Reason: Pain Score 4-10) 5 Days Qty: 15 0RF Continued infliximab [Remicade] 100 mg recon soln See Rx Instructions .ROUTE .COMPLEX Label Comments: q 60 days Rx Instructions: q 60 days methotrexate sodium 2.5 mg tablet 7.5 tab PO THEODORE hydroxychloroquine 200 mg tablet 300 mg PO QDAY lisinopril 20 mg tablet 20 mg PO BID amlodipine 5 mg tablet 5 mg PO QDAY simvastatin 20 mg tablet 20 mg PO QPM omeprazole 20 mg capsule,delayed release(DR/EC) 20 mg PO BID estradiol 0.5 mg tablet 0.5 mg PO QDAY flunisolide 25 mcg (0.025 %) spray,non-aerosol 2 spray INTRANASAL BID multivitamin tablet 1 tab PO QDAY calcium citrate 250 mg calcium-vitamin D3 200 unit tablet 250 mg calcium- 200 unit tablet 1 tab PO BID ascorbic acid (vitamin C) 500 mg capsule 500 mg PO DAILY folic acid 0.8 mg capsule 800 mcg PO QDAY potassium gluconate 2.5 mEq tablet 99 meq PO QDAY ferrous sulfate 134 mg (27 mg iron) tablet 134 mg (27 mg iron) tablet 134 mg PO QDAY glucos sul [id number] 1 EACH capsule 1 ea PO DAILY levothyroxine 137 MCG tablet 137 mcg PO MOTUWETHFRSA DHA Algal-900 300 mg Capsule 900 mg PO DAILY Referrals / Follow Up: Renee Briscoe MD [Primary Care Provider] - Disposition Disposition (needs filled in before D/C Order can be placed): Home, Self Care
[2022-04-11] MEDS: Estradiol 0.5 MG Tablet PO (08:45)
[2022-04-11] MEDS: Fluticasone 0.05% 1 SPRAY NASAL.SRY 2 SPRAY NASAL (08:46)
--- NOTE | 2022-04-11 10:40 | CASEMGMT ---
MAGDA CM to complete assessment. Pt has been dc'd and left the facility.
--- NOTE | 2022-04-11 10:47 | PHA.DC.MR ---
Pharmacy Service has performed discharge medication reconciliation for this patient. The patient's discharge medication list was reviewed for discrepancies and discrepancies were resolved. Medication education papers prepared, patient gone when counseling attempted. Home Medications amlodipine 5 mg tablet 5 mg PO QDAY BP 03/07/17 ascorbic acid (vitamin C) 500 mg capsule 500 mg PO DAILY SUPPLEMENT 03/07/17 calcium citrate 250 mg calcium-vitamin D3 5 mcg (200 unit) tablet 1 tab PO BID SUPPLEMENT 03/07/17 estradiol 0.5 mg tablet 0.5 mg PO QDAY HORMONE 03/07/17 ferrous sulfate 134 mg (27 mg iron) tablet 134 mg PO QDAY 03/07/17 flunisolide 25 mcg (0.025 %) nasal spray 2 spray intranasal BID ALLERGIES 03/07/17 folic acid 0.8 mg capsule 800 mcg PO QDAY 03/07/17 hydroxychloroquine 200 mg tablet 300 mg PO QDAY RA 03/07/17 infliximab 100 mg intravenous solution (Remicade) See Rx Instructions .Route .COMPLEX 03/07/17 lisinopril 20 mg tablet 20 mg PO BID BP 03/07/17 methotrexate sodium 2.5 mg tablet 7.5 tab PO THEODORE RA 03/07/17 multivitamin 1 tab PO QDAY 03/07/17 omeprazole 20 mg capsule,delayed release 20 mg PO BID REFLUX 03/07/17 potassium gluconate 2.5 mEq tablet 99 meq PO QDAY 03/07/17 simvastatin 20 mg tablet 20 mg PO QPM 03/07/17 glucosamine sulf dipot chlr,msm,chond 550 mg-C 30 mg-whit 1 mg capsule 1 ea PO DAILY 02/09/19 levothyroxine 137 mcg tablet 137 mcg PO MOTUWETHFRSA 02/09/19 docosahexaenoic acid 300 mg capsule (DHA Algal-900) 900 mg PO DAILY 10/31/20 acetaminophen 325 mg tablet (Tylenol) 650 mg PO Q4H PRN PRN Pain 1-10 Or Fever #0 tabs 04/11/22 oxycodone 5 mg tablet 5 - 10 mg PO Q4H PRN PRN Pain Score 4-10 5 days #15 tabs 04/11/22
== END 2022-04-11 10:31 | disposition home or self-care (01) | DRG 418 ==
LOC: ED 14:15 → SDC 15:52 → AC 16:00 → SDC 18:34 → MS3 18:34
PROVIDERS: Admitting Provider Surgery; Emergency Provider Emergency Medicine; PCP Family Medicine; Visit Provider Surgery
PROC: 0FT44ZZ Resection of Gallbladder, Percutaneous Endoscopic Approach (ICD-10-PCS; CPT 47610; principal; 2022-04-10 16:40)
DX: K85.10 Biliary acute pancreatitis without necrosis or infection (principal); K81.0 Acute cholecystitis; M06.9 Rheumatoid arthritis, unspecified; K83.8 Other specified diseases of biliary tract; E78.00 Pure hypercholesterolemia, unspecified; I10 Essential (primary) hypertension; Z87.891 Personal history of nicotine dependence
CPT/HCPCS: 36415; 71045; 74300; 76000; 76705; 80048; 80053; 80076; 83690; 84484; 85025; 88304; 93005; 94668; 99285; J7030; J7120; A4216; J0330; J2405

== ENCOUNTER → 2022-05-25 | Outpatient (CLI) | payer MEDICARE, OTHER, SELFPAY ==
[2022-05-25 10:59] LABS: Cholesterol 194 mg/dL (200); High Density Lipoprotein 65 mg/dL; Thyroid Stim Hormone (TSH) 1.61 uIU/mL (0.358-3.74); Triglycerides 67 mg/dL; Very Low Density Lipoprotein 13 mg/dL (5-40)
== END | disposition home or self-care (01) ==
LOC: MTLAB 08:51
PROVIDERS: PCP Family Medicine; Referring Provider Family Medicine; Visit Provider Family Medicine
DX: E78.5 Hyperlipidemia, unspecified (principal); E03.2 Hypothyroidism due to medicaments and other exogenous substances
CPT/HCPCS: 36415; 80061; 84443

== ENCOUNTER → 2022-07-09 | Outpatient (CLI) | payer MEDICARE, OTHER, SELFPAY ==
[2022-07-09 13:08] LABS: AST(SGOT) 33 U/L (15-37); Alanine Aminotransfer ALT/SGPT 25 U/L (13-56); Albumin, Serum 3.6 g/dL (3.2-5.0); Alkaline Phosphatase 84 U/L (45-117); Bilirubin, Direct 0.13 mg/dL (0.00-0.30); Globulin 4.8 g/dL (2.2-4.2); Protein, Total 8.4 g/dL (6.4-8.2)
== END | disposition home or self-care (01) ==
LOC: MTLAB 10:44
PROVIDERS: PCP Family Medicine
DX: R74.8 Abnormal levels of other serum enzymes (principal)
CPT/HCPCS: 36415; 80076

== ENCOUNTER 2022-10-12 20:12 | Emergency (ER) | payer MEDICARE, OTHER, SELFPAY ==
[2022-10-12 20:13] VITALS: BP 152/81; PULSE 80; RESP 16; TEMP 36.4; O2SAT 96; BMI 30.4
--- NOTE | 2022-10-12 20:24 | EDS_ITS ---
HPI History of Present Illness Chief Complaint: Fall Detail of Chief Complaint: Injury due to fall right and left knee Informant: patient and EMS Occured/Mechanism Mechanism/Context: Yes injury, Yes blunt trauma and Yes same level fall Comment: Patient was walking on the patio. Thought the screen door was open. Went in the screen and then fell on both her right and left knee. Patient states she is not on an anticoagulant. Onset/Context/Timing Context: Sudden Onset Timing: Continuous Quality of Pain: Dull and Aching Location: Left knee greater than right Current Severity: Mild Maximum Severity: Severe Worsened by: Palpation, movement especially the left Relieved by: Nothing Associated Symptoms Associated Symptoms: Positive for Loss of Funtion (Left due to pain) Narrative Narrative: Patient is a 76-year-old woman with history of hypothyroidism, rheumatoid arthritis who presents with blunt injury to her right and left knee after direct fall onto her right and left knee. She denies paresthesia, anesthesia medics. Denies head trauma. Denies neck pain. Denies low back pain. Tetanus Immunization: Unknown Prior similar symptoms: No Recent Illness/Hospitalization: No PFSH PFSH Medical History Alcohol use Bladder disease Bone fracture Breast lump Broken femur Cataracts, bilateral Femur fracture, right Former smoker Gastric reflux GI problem High cholesterol History of steroid therapy History of stress test HTN (hypertension) Hypothyroidism Left foot amputee Low iron Neuropathy Osteoarthritis Osteopenia Pneumonia Rheumatoid arthritis Rheumatoid arthritis Seasonal allergies UTI (urinary tract infection) Vision problems Home Medications amlodipine 5 mg tablet 5 mg PO QDAY BP 03/07/17 [History Last Taken 11/07/20] ascorbic acid (vitamin C) 500 mg capsule 500 mg PO DAILY SUPPLEMENT 03/07/17 [History Last Taken Unknown] calcium citrate 250 mg calcium-vitamin D3 5 mcg (200 unit) tablet 1 tab PO BID SUPPLEMENT 03/07/17 [History Last Taken Unknown] estradiol 0.5 mg tablet 0.5 mg PO QDAY HORMONE 03/07/17 [History Last Taken Un known] ferrous sulfate 134 mg (27 mg iron) tablet 134 mg PO QDAY 03/07/17 [History Last Taken Unknown] flunisolide 25 mcg (0.025 %) nasal spray 2 spray intranasal BID ALLERGIES 03/07/17 [History Last Taken Unknown] folic acid 0.8 mg capsule 800 mcg PO QDAY 03/07/17 [History Last Taken Unknown] hydroxychloroquine 200 mg tablet 300 mg PO QDAY RA 03/07/17 [History Last Taken Unknown] infliximab 100 mg intravenous solution (Remicade) See Rx Instructions .Route .COMPLEX 03/07/17 [History Last Taken 10/31/17] lisinopril 20 mg tablet 20 mg PO BID BP 03/07/17 [History Last Taken 11/07/20] methotrexate sodium 2.5 mg tablet 7.5 tab PO THEODORE RA 03/07/17 [History Last Taken Unknown] multivitamin 1 tab PO QDAY 03/07/17 [History Last Taken Unknown] omeprazole 20 mg capsule,delayed release 20 mg PO BID REFLUX 03/07/17 [History Last Taken 11/07/20] potassium gluconate 2.5 mEq tablet 99 meq PO QDAY 03/07/17 [History Last Taken Unknown] simvastatin 20 mg tablet 20 mg PO QPM 03/07/17 [History Last Taken Unknown] glucosamine sulf dipot chlr,msm,chond 550 mg-C 30 mg-whit 1 mg capsule 1 ea PO DAILY 02/09/19 [History Last Taken Unknown] levothyroxine 137 mcg tablet 137 mcg PO MOTUWETHFRSA 02/09/19 [History Last Taken Unknown] docosahexaenoic acid 300 mg capsule (DHA Algal-900) 900 mg PO DAILY 10/31/20 [History Last Taken Unknown] acetaminophen 325 mg tablet (Tylenol) 650 mg (2 x 325 mg) PO Q4H PRN PRN Pain 1- 10 Or Fever #0 tabs 04/11/22 [Rx Last Taken Unknown] oxycodone 5 mg tablet 5 - 10 mg (1 - 2 x 5 mg) PO Q4H PRN PRN Pain Score 4-10 5 days #15 tabs 04/11/22 [Rx Last Taken Unknown] hydrocodone-acetaminophen 5-325mg 5mg-325mg 1 tab PO Q6H PRN PRN Pain 5 days #20 TABLETS 10/12/22 [Rx Last Taken Unknown] Allergy/AdvReac Type Severity Reaction Status Date / Time adhesive tape Allergy Severe Unknown Verified 10/12/22 20:18 grass pollen Allergy Severe Unknown Verified 10/12/22 20:18 house dust Allergy Severe Unknown Verified 10/12/22 20:18 Family History Mother Thyroid disorder Grandmother Diabetes Osteoporosis Grandfather Arthritis Surgical History H/O Achilles tendon repair H/O colonoscopy H/O foot surgery H/O shoulder replacement H/O thyroidectomy H/O: hysterectomy S/P laparoscopic cholecystectomy Status post fusion of wrist Social History Smoking Status: Former smoker second hand exposure: No alcohol intake: never substance use type: does not use ROS ROS ED Constitutional Constitutional ED: Denies chills, fever(s), subjective or sweats Eyes Eyes: Denies blurry vision or change in vision Cardiovascular Cardiovascular: Denies chest pain or palpitations Respiratory/Chest Respiratory/Chest: Denies cough or dyspnea Gastrointestinal Gastrointestinal: Reports other Details: Denies black stool. ; Denies diarrhea, nausea or vomiting Musculoskeletal Musculoskeletal: Reports other Details: Right and left knee pain ; Denies arthralgias, back pain, myalgias or neck pain Neurologic Neurologic: Denies paresthesias or weakness Hematologic/Lymphatic Hematologic/Lymphatic: Denies easy bleeding or easy bruising EXAM Physical Exam Const Vital Signs: 10/12/22 20:13 10/12/22 20:20 Temperature 97.5 F L Temperature Source Oral Pulse Rate 80 Respiratory Rate 16 Respiratory Effort Normal Non-Labored Respiratory Depth Normal Respiratory Pattern Normal Blood Pressure 152/81 H Blood Pressure Mean 104 Pulse Ox 96 Oxygen Delivery Method Room Air Room Air Positive well nourished, well developed and obese Constitutional Narrative: Appears in discomfort. General Appearance ED: well developed Nutritional Appearance: obese HEENT Reports moist mucous membranes normocephalic and atraumatic Eyes PERRL Eyes Narrative: Extraocular muscles are back. There is no subconjunctival hemorrhage. Sclera is anicteric. Neck full ROM Chest Wall inspection of chest normal and palpation of chest normal Resp normal respiratory effort, no retractions and clear to auscultation bilaterally Cardio regular rate, regular rhythm, S1 normal heart sound, S2 normal heart sound and no murmurs Extremity Negative for normal to inspection Extremity Narrative: There is significant swelling of the left knee compared to the right. There is pain ovation over the patella. Difficult to ascertain whether there is an effusion versus extra articular fluid collection. Patient has joint line tenderness both right and left. She is able to extend her right and left leg against gravity. Will obtain x-ray prior to completing exam. General Extremety ED: Yes weight-bearing difficulty General Extremity: weight-bearing difficulty Neuro oriented x3, CN's II-XII intact bilaterally and moves all extremities Sensorium / Orientation: alert Psych mental status grossly normal Skin Skin Narrative: Multiple bruises right and left knee. MDM MDM MDM Narrative Medical decision making narrative: X-rays of right knee was obtained because of concern for possible tibial plateau fracture. There is significant swelling inferior to the patella. There is bruising noted as well. X-ray of the left knee was obtained because of concern for patella fracture. Patient did receive IV morphine for her pain. Radiography Chest X-Ray - ED: 2 View (4 view x-ray of the left knee was ordered and only 2 were performed. There is a transverse versus fracture of the patella. There is no other abnormality that is acute. There is degenerative changes noted.) and Read by ED Physician (For view x-ray of the right knee was obtained. There is no effusion. There is no fracture. There is significant degenerative changes. There is intramedullary dereck noted distal portion of the femur. Both the right and left knee was independently reviewed and interpreted by me at 03/21/2004.) Discharge Plan Triage Chief Complaint: Fall ED Provider: Adolfo Avalos Dx/Rx/DC Orders Clinical Impression: Injury due to fall, Closed transverse fracture of left patella, Contusion of right knee, initial encounter Instructions: ED Contusion, Lower Extremity, ED Patella Fracture Prescriptions: New hydrocodone-acetaminophen [hydrocodone-acetaminophen] 5-325 mg tablet 1 tab PO Q6H PRN PRN (Reason: Pain) 5 Days Qty: 20 0RF No Action infliximab [Remicade] 100 mg recon soln See Rx Instructions .ROUTE .COMPLEX Patient Comments: q 60 days Rx Instructions: q 60 days methotrexate sodium 2.5 mg tablet 7.5 tab PO THEODORE hydroxychloroquine 200 mg tablet 300 mg PO QDAY lisinopril 20 mg tablet 20 mg PO BID amlodipine 5 mg tablet 5 mg PO QDAY simvastatin 20 mg tablet 20 mg PO QPM omeprazole 20 mg capsule,delayed release(DR/EC) 20 mg PO BID estradiol 0.5 mg tablet 0.5 mg PO QDAY flunisolide 25 mcg (0.025 %) spray,non-aerosol 2 spray INTRANASAL BID multivitamin tablet 1 tab PO QDAY calcium citrate 250 mg calcium-vitamin D3 200 unit tablet 250 mg calcium- 200 unit tablet 1 tab PO BID ascorbic acid (vitamin C) 500 mg capsule 500 mg PO DAILY folic acid 0.8 mg capsule 800 mcg PO QDAY potassium gluconate 2.5 mEq tablet 99 meq PO QDAY ferrous sulfate 134 mg (27 mg iron) tablet 134 mg (27 mg iron) tablet 134 mg PO QDAY glucos sul [id number] 1 EACH capsule 1 ea PO DAILY levothyroxine 137 MCG tablet 137 mcg PO MOTUWETHFRSA DHA Algal-900 300 mg Capsule 900 mg PO DAILY acetaminophen [Tylenol] 325 mg Tablet 650 mg PO Q4H PRN PRN (Reason: Pain 1-10 Or Fever) Qty: 0 0RF oxycodone 5 mg Tablet 5 - 10 mg PO Q4H PRN PRN (Reason: Pain Score 4-10) 5 Days Qty: 15 0RF Primary Care Provider: Renee Briscoe Referrals: Renee Briscoe MD [Primary Care Provider] - Tim Vera DO [Med Staff - Active Staff] - 5-7 Days Disposition Disposition: Home, Self Care
[2022-10-12] MEDS: Morphine 4 MG/ML Syringe IV (20:25)
[2022-10-12] MEDS: Ondansetron 4 MG/2 ML Vial IV (20:26)
--- NOTE | 2022-10-12 20:40 | RAD_ITS ---
STUDY: X-RAY - RIGHT KNEE REASON FOR EXAM: Female, 76 years old. Injury/Pain TECHNIQUE: 4 view(s) of the knee. COMPARISON: None. FINDINGS: Intramedullary dereck distal femur. Normal visualized proximal tibia and fibula. Normal proximal tibiofibular articulation. There is moderate degenerative arthrosis of the medial femorotibial compartment with moderate joint space narrowing. Normal lateral femorotibial compartment. 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 The soft tissue structures are unremarkable. RAD/Knee 4 or More Views IMPRESSION: No fracture. DJD. Electronically Signed: Jayesh Osborn MD at 21:13 EDT ,
--- NOTE | 2022-10-12 20:40 | RAD_ITS ---
STUDY: X-RAY - LEFT KNEE REASON FOR EXAM: Female, 76 years old. Injury/Pain TECHNIQUE: 2 view(s) of the knee. COMPARISON: None FINDINGS: Normal visualized distal femur. Normal visualized proximal tibia and fibula. Normal proximal tibiofibular articulation. Slight lateral subluxation. Normal medial femorotibial compartment. Normal lateral femorotibial compartment. 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 Large prepatellar soft tissue swelling. Cortical defect superior lateral patella. The soft tissue structures are unremarkable. RAD/Knee 1 or 2 Views IMPRESSION: Prepatellar hematoma and/or bursitis. Normal variant versus patellar fracture, age indeterminate. Electronically Signed: Jayesh Osborn MD at 21:21 EDT ,
[2022-10-12 21:40] VITALS: BP 150/79; PULSE 84; RESP 16; O2SAT 97
== END 2022-10-12 21:53 | disposition home or self-care (01) ==
PROVIDERS: Emergency Provider Emergency Medicine; PCP Family Medicine; Visit Provider Emergency Medicine
DX: S82.032A Displaced transverse fracture of left patella, initial encounter for closed fracture (principal); M06.9 Rheumatoid arthritis, unspecified; Z87.891 Personal history of nicotine dependence; E78.00 Pure hypercholesterolemia, unspecified; I10 Essential (primary) hypertension; S80.01XA Contusion of right knee, initial encounter; W18.39XA Other fall on same level, initial encounter; Y92.89 Other specified places as the place of occurrence of the external cause; Z98.41 Cataract extraction status, right eye; Z98.42 Cataract extraction status, left eye; Z79.899 Other long term (current) drug therapy; K21.9 Gastro-esophageal reflux disease without esophagitis; E03.9 Hypothyroidism, unspecified; Z96.619 Presence of unspecified artificial shoulder joint; Z90.710 Acquired absence of both cervix and uterus; Z90.49 Acquired absence of other specified parts of digestive tract
CPT/HCPCS: 73560; 73564; 96374; 96375; 99285; A4216; J2405

== ENCOUNTER → 2023-08-05 | Outpatient (CLI) | payer MEDICARE, OTHER, SELFPAY ==
[2023-08-05 11:44] LABS: Cholesterol 176 mg/dL (200); High Density Lipoprotein 62 mg/dL; T4 Free Direct 1.18 ng/dL (0.76-1.46); Thyroid Stim Hormone (TSH) 2.23 uIU/mL (0.358-3.74); Triglycerides 75 mg/dL; Very Low Density Lipoprotein 15 mg/dL (5-40)
== END | disposition home or self-care (01) ==
PROVIDERS: PCP Family Medicine; Referring Provider Family Medicine; Visit Provider Family Medicine
DX: E78.5 Hyperlipidemia, unspecified (principal); E03.9 Hypothyroidism, unspecified
CPT/HCPCS: 36415; 80061; 84439; 84443

== ENCOUNTER → 2024-04-01 | Outpatient (CLI) | payer MEDICARE, OTHER, SELFPAY ==
[2024-04-01 18:19] LABS: Creatinine, Serum 1.25 mg/dL (0.55-1.02); EST Glomerular Filtration Rate 44 mL/min (>60); Est Glom Filt Rate - Afr Amer 53 mL/min (>60)
== END | disposition home or self-care (01) ==
LOC: MTLAB 13:49
PROVIDERS: PCP Family Medicine
DX: N28.9 Disorder of kidney and ureter, unspecified (principal)
CPT/HCPCS: 36415; 82565

== ENCOUNTER → 2024-08-14 | Outpatient (CLI) | payer MEDICARE, OTHER, SELFPAY ==
--- OUTSIDE RECORDS SUMMARY | 2024-08-14 07:25 | XMS RPT_ITS | CCD ---
Author Organization [facility] Care Team Providers Care [employer] Sales Agent Name Role Phone Sam POTTER, Jasmin Becerril Unavailable [place] ABBE Piedad K Unavailable Unavailable Piedad Engle CMA K Unavailable Unavailable Renee Briscoe Primary Care Provider Dr. Renee Briscoe Primary Care Provider Dr. Guera Salomon Emergency Provider Dr. Victor M Aldridge Attending Provider [phone] Dr. Victor M Aldridge Admit Provider Luis Carlos, Dr. Dow Other Provider [phone] Dr. Renee Briscoe Primary Care Provider Dr. Guera Salomon Emergency Provider [phone] Victor M Aldridge Attending Provider Dr. Victor M Aldridge Admit Provider Dr. Victor M Aldridge Other Provider Dr. Victor M Aldridge Referring Provider Renee Briscoe MD Primary Care Provider Renee Briscoe MD Primary Care Provider RENEE BRISCOE Referring Unavailable RENEE BRISCOE Primary Care Unavailable Renee Briscoe Primary Care Unavailable BRUCE GONZALEZ Referring Unavailable BRUCE GONZALEZ Attending Unavailable Renee Briscoe Referring Unavailable Renee Briscoe Attending Unavailable Renee Briscoe Primary Care Unavailable Allergies Allergy Classification Reported Allergen(s) Allergy Type Date of Onset Reaction(s) Facility (4 sources) Adhesive Tape drug allergy 7 [facility] Work Phone: (4 sources) Dust; Translations: [DUST] allergy to substance 7 [facility] Work Phone: (4 sources) natural latex rubber; Translations: [LATEX] allergy to substance 7 [facility] Work Phone: (4 sources) GRASS; Translations: [GRASS] allergy to substance 7 [facility] Work Phone: (7 sources) Adhesive Tape; Translations: [ADHESIVE TAPE (ROSINS)] Allergy to substance 2 Itching [facility] Work Phone: (7 sources) atorvastatin; Translations: [ATORVASTATIN CALCIUM] Drug Allergy 2 Other: See Comments [facility] Work Phone: (7 sources) fluticasone; Translations: [FLUTICASONE PROPIONATE] Drug Allergy 1 Intolerance [facility] Work Phone: (7 sources) hydroCHLOROthiazi de; Translations: [HYDROCHLOROTHIAZ SHONNA] Drug Allergy 2 Other: See Comments [facility] Work Phone: (6 sources) environmental [Other] Propensity to adverse reactions 9 [facility] (7 sources) Adhesive Tape; Translations: [adhesive tape] Allergy to substance 2 Unknown [facility] (7 sources) Grass pollen; Translations: [grass pollen] Allergy to substance 1 Unknown [facility] (6 sources) house dust allergenic extract Drug Allergy 1 Unknown [facility] (1 source) OTHER; Translations: [OTHER] Propensity to adverse reactions (disorder) 9 [facility] (1 source) house dust allergenic extract Drug Allergy 3 [facility] Medications Current Medications Medication Drug Class(es) Dates Sig (Normalized) Sig (Original) acetaminophen 325 mg oral tablet (3 sources) Start: 04-11-2022 take 2 tablets by mouth every four hours as needed Acetaminophen (Tylenol) 325 mg Tablet Active 650 MG PO EVERY 4 HOURS NEEDED April 11, 2022 1:00am acetaminophen 325 mg / HYDROcodone bitartrate 5 mg oral tablet (7 sources) Opioid Agonist Start: 10-12-2022 take 1 tablet by mouth every six hours as needed Hydrocodone-Acetami nophen Active 1 TABLET PO EVERY 6 HOURS NEEDED 07 07October 12, 2022 Start: 11-12-2016 End: 03-07-2017 take 1 tablet by mouth every four hours as needed Hydrocodone-Acetaminophen Discontinued 1 - 2 TABLET PO EVERY 4 HOURS NEEDED November 12, 2016 12:00am March 07, 2017 2:11pm [id number] actuat albuterol 0.09 mg/actuat metered dose inhaler (6 sources) beta2-Adrenergic Agonist Start: 04-29-2019 take 2 puff(s) by inhalation every four hours as needed albuterol HFA (PROVENTIL HFA, VENTOLIN HFA) 90 mcg/actuation inhaler Indications: Bronchitis Inhale 2 Puffs as instructed every 4 hours as needed. 1 Inhaler 04/29/2019 Active Comment on above: Inhale 2 Puffs as instructed every 4 linda rs as needed. amLODIPine 5 mg oral tablet (16 sources) Dihydropyridine Calcium Channel Andrew Start: 03-07-2017 take 1 tablet by mouth once daily amLODIPine (NORVASC) 5 mg tablet Indications: Essential hypertension Take 1 tablet by mouth once daily. 90 tablet 3 04/07/2018 Active AMLODIPINE BESYL ATE 5 MG TABS qd AMLODIPINE BESYLATE [id number] Jasmin Vargas DIRECTOR LOAN Comment on above: Take 1 tablet by simon th once daily. ascorbic acid 500 mg oral capsule (16 sources) Start: 03-07-2017 take 500 mg by mouth once daily Ascorbic Acid (Vitamin C) Active 500 MG PO DAILY March 07, 2017 1:00am take 1 tablet by mouth once randolph y ASCORBIC ACID (VITAMIN C ORAL) Take 1 tablet by mouth once daily. Active take 1 tablet by mouth once randolph y ASCORBIC ACID (VITAMIN C ORAL) Take 1 tablet by mouth once daily. 0 Active VITAMIN C TABS A SCORBIC ACID TABS [id number] Jasmin Vargas DIRECTOR LOAN Comment on above: Take 1 tablet by simon once daily. benzonatate 100 mg oral capsule (6 sources) Non-narcotic Antitussive Start: 04-29-19 20 take 1 capsule by mouth three times daily as needed benzonatate (TESSALON PERLES) 100 mg capsule Indications: Bronchitis Take 1 capsule by mouth three times daily as needed. 40 capsule 04/29/2019 Active Comment on above: Take 1 capsule by mo [facility] three times daily as needed. calcium carbonate 1500 mg / cholecalciferol 200 unt oral tablet (6 sources) Vitamin D Start: 03-29-19 09 calcium carbonate/vitamin d3(CALCIUM 600 + D(3) 600 MG (1,500)-200 UNIT TAB) Take one(1) tablet two(2) times daily. 0 0 03/29/2008 Active Comment on above: Take one(1) tablet t wo(2) times daily. calcium citrate 1190 mg / cholecalciferol 0.005 mg oral tablet (6 sources) Vitamin D Start: 03-07-19 18 take 1 tablet by mouth twice daily calcium citrate 250 mg calcium-vitamin D3 200 unit tablet Active 1 TABLET PO TWICE A DAY March 07, 2017 1:00am chondroitin sulfates 400 mg / glucosamine hydrochloride 500 mg oral capsule (10 sources) Start: 03-29-19 09 gluc theodore/chondro theodore a/vit c/mn(GLUCOSAMINE CHONDROITIN MAXIMUM STRENGTH 500 MG-400 MG CAP) Take one(1) tablet two(2) times daily. 0 0 03/29/2008 Active GLUCOSAMINE SARTHAK COMPLEX CAPS GLUCOSAMINE-CHONDROITIN CAPS [id number] Jasmin Vargas DIRECTOR LOAN Comment on above: Take one(1) tablet t wo(2) times daily. COMPOUNDED PRESCRIPTION (6 sources) Start: 02-20-2017 COMPOUNDED PRESCRIPTION Indications: Benign paroxysmal positional vertigo, unspecified laterality Vestibular rehab Re BPPV 1 Each 1 02/20/2017 Active Comment on above: Vestibular rehab Re BPPV docosahexaenoic acid 300 mg oral capsule (6 sources) Start: 10-31-2020 Docosahexaenoic Acid (Dha Algal-900) 300 mg Capsule Active 900 MG PO DAILY October 31, 2020 12:00am estradiol 0.5 mg oral tablet (16 sources) Estrogen Start: 03-07-2017 Estradiol (ESTRACE) 0.5 mg tablet Indications: Hot flashes TAKE 1 TABLET ONE TIME DAILY (THIS REPLACES MENEST) 30 tablet 3 02/25/2018 Active ESTRADIOL 0.5 MG TABS qd ESTRADIOL [id number] Jasmin Vargas DIRECTOR LOAN Comment on above: TAKE 1 TABLET ONE TI ME DAILY (THIS REPLACES MENEST) ferrous sulfate 134 mg oral tablet (10 sources) Start: 03-07-2017 take 1 tablet by mouth once daily ferrous sulfate 134 mg (27 mg iron) tablet Active 134 MG PO daily March 07, 2017 1:00am FERROUS SULFATE TABS FERROUS SULFATE TABS [id number] Jasmin Vargas NP flunisolide 0.025 mg/actuat metered dose nasal spray (16 sources) Corticosteroid Start: 05-03-2017 flunisolide (N ASALIDE, NASAREL) 25 mcg (0.025 %) spry Use 2 Sprays in the nose twice daily. 1 Bottle 11 05/03/2017 Active Start: 03-07-2017 Flunisolide Ac tive 2 SPRAY INTRANASAL TWICE A DAY March 07, 2017 1:00am FLUNISOLIDE 25 M CG/ACT (0.025%) SOLN bid FLUNISOLIDE [id number] Jasmin Vargas DIRECTOR LOAN Comment on above: Use 2 Sprays in the nose twice daily. FLUoxetine 20 mg oral capsule (6 sources) Serotonin Reuptake Inhibitor Start: 04-07-2018 take 1 capsule by mouth once daily FLUoxetine (PROZAC) 20 mg capsule Indications: Hot flashes Take 1 capsule by mouth once daily. 30 capsule 3 04/07/2018 Active Comment on above: Take 1 capsule by mo [facility] once daily. folic acid 0.8 mg oral capsule (16 sources) Start: 03-07-2017 take 800 ug by mouth once daily Folic Acid Active 800 MCG PO daily March 07, 2017 1:00am take 1 tablet by mouth once randolph y FOLIC ACID ORAL Take 1 tablet by mouth once daily. Active take 1 tablet by mouth once randolph y FOLIC ACID ORAL Take 1 tablet by mouth once daily. 0 Active FOLIC ACID CAPS FOLIC ACID CAPS [id number] Jasmin Vargas DIRECTOR LOAN Comment on above: Take 1 tablet by simon once daily. Glucos Sul 6hnt-Iic-Eclrj-C-Mn (6 sources) Start: 02-09-2019 Glucos Sul 5ibn-Oaz-Omxyw-C-Mn Active 1 EACH PO DAILY February 09, 2019 12:00am Start: 02-09-2019 Glucos Sul 2kc w-Kkz-Vuriz-C-Mn Active 1 EACH PO DAILY February 09, 2019 1:00am 12 hr guaiFENesin 600 mg extended release oral tablet (6 sources) Start: 04-29-2019 take 2 tablets by mouth twice daily guaiFENesin (MUCINEX) 600 mg 12 hr tablet Indications: Bronchitis Take 2 tablets by mouth twice daily. 30 tablet 04/29/2019 Active Comment on above: Take [address] [facility] twice daily. hydrocortisone 0.01 mg/mg topical ointment (6 sources) Corticosteroid Start: 06-05-2013 hydrocortisone 1 % ointment Indications: Psoriasiform dermatitis , Eyelid dermatitis, eczematous , Dermatitis, eyelid, contact , Other psoriasis , Eczematous dermatitis Apply small amount (for thin layer) selectively to dermatitis rash of upper eyelids once to twice per day (as tolerated) until clear as directed. Try to limit use to under 10 days per flare episode as much as possible. Also, advise evaluation by Ophthalmology for possible toxiicity with extended or frequent use. 15 g 1 06/05/2013 Active Comment on above: Apply small amount ( for thin layer) selectively to dermatitis rash of upper eyelids once to twice per day (as tolerated) until clear as directed. Try to limit use to under 10 days per flare episode as much as possible. Also, advise evaluation by Ophthalmology for possible toxiicity with extended or frequent use. hydroxychloroquine sulfate 200 mg oral tablet (16 sources) Antirheumatic Agent Start: 03-07-2017 take 300 mg by mouth once daily Hydroxychloroquine Active 300 MG PO daily March 07, 2017 1:00am Start: 03-24-2008 hydroxychloroq uine sulfate(PLAQUENIL 200 MG TAB) Take one(1) tablet two(2) times daily. 0 03/24/2008 Active HYDROXYCHLOROQUI NE SULFATE 200 MG TABS 1.5 tabs q d HYDROXYCHLOROQUINE SULFATE [id number] Jasmin Vargas DIRECTOR LOAN Comment on above: Take one(1) tablet t wo(2) times daily. inFLIXimab 100 mg injection (16 sources) Tumor Necrosis Factor Andrew Start: 03-07-2017 Infliximab (Remicade) 100 mg recon soln Active 0 .ROUTE .COMPLEX March 07, 2017 1:00am q 60 days INFLIXIMAB (EAMON CINDY INTRAVEN.) Inject intravenously. Active INFLIXIMAB (EAMON CINDY INTRAVEN.) Inject intravenously. 0 Active REMICADE 100 MG SOLR q 60 days INFLIXIMAB [id number] Jasmin Vargas DIRECTOR LOAN Comment on above: Inject intravenously . lisinopril 20 mg oral tablet (16 sources) Angiotensin Converting Enzyme Inhibitor Start: 8 take 1 tablet by mouth twice daily lisinopril (ZESTRIL, PRINIVIL) 20 mg tablet Indications: Essential hypertension Take 1 tablet by mouth twice daily. 180 tablet 3 04/07/2018 Active LISINOPRIL 20 MG TABS qd LISINOPRIL [id number] Jasmin Vargas DIRECTOR LOAN Comment on above: Take 1 tablet by simon th twice daily. methotrexate 2.5 mg oral tablet (16 sources) Folate Analog Metabolic Inhibitor Start: 03-07-2017 Methotrexate Sodium Active 7.5 TABLET PO THEODORE March 07, 2017 1:00am METHOTREXATE SOD IUM (METHOTREXATE, ANTI-RHEUMATIC, ORAL) Take by mouth. Active METHOTREXATE SOD IUM (METHOTREXATE, ANTI-RHEUMATIC, ORAL) Take by mouth. 0 Active METHOTREXATE 2.5 MG TABS 3 x q week METHOTREXATE SODIUM [id number] Jasmin Vargas DIRECTOR LOAN Comment on above: Take by mouth. Multivitamin preparation (6 sources) Start: 03-07-2017 take 1 tablet by mouth once daily Multivitamin Active 1 TABLET PO daily March 07, 2017 12:00am Start: 03-07-2017 take 1 tablet by simon th once daily Multivitamin Active 1 TABLET PO daily March 07, 2017 1:00am multivitamins(DAILY MULTIVITAMIN TAB) (6 sources) Start: 03-29-2008 multivitamins(DAILY MULTIVITAMIN TAB) Take one(1) tablet daily. 0 0 03/29/2008 Active Comment on above: Take one(1) tablet d aily. naproxen sodium 220 mg oral tablet (6 sources) Nonsteroidal Anti-inflammato ry Drug take 2 tablets by mouth twice daily naproxen sodium (ANAPROX) 220 mg tablet Take two tablets by mouth twice daily. Active Comment on above: Take two tablets by mouth twice daily. omeprazole 20 mg delayed release oral capsule (16 sources) Proton Pump Inhibitor Start: 04-07-2018 take 1 capsule by mouth once daily before breakfast omeprazole (PRILOSEC) 20 mg capsule Indications: Gastroesophageal reflux disease without esophagitis TAKE 1 CAPSULE BY MOUTH DAILY 1/2 HOUR BEFORE BREAKFAST and 2 hours after dinner 180 capsule 3 04/07/2018 Active Start: 03-07-2017 take 20 mg by mouth twice randolph y Omeprazole Active 20 MG PO TWICE A DAY March 07, 2017 1:00am OMEPRAZOLE 20 MG TBEC bid OMEPRAZOLE [id number] Jasmin Vargas DIRECTOR LOAN Comment on above: TAKE 1 CAPSULE BY MO UTH DAILY 1/2 HOUR BEFORE BREAKFAST and 2 hours after dinner oxyCODONE hydrochloride 5 mg oral tablet (3 sources) Opioid Agonist Start: 04-11-2022 take 5-10 mg by mouth every four hours as needed Oxycodone Active 5 - 10 MG PO EVERY 4 HOURS NEEDED 15 April 11, 2022 potassium gluconate 2.5 meq oral tablet (16 sources) Start: 03-07-2017 take 99 mEq by mouth once daily Potassium Gluconate Active 99 MEQ PO daily March 07, 2017 1:00am Start: 03-07-2017 take 2.5 mEq by mout h once daily Potassium Gluconate Active 2.5 MEQ PO daily March 07, 2017 1:00am Potassium 99 mg Tab Take by mouth once daily. Active POTASSIUM GLUCON ATE TABS POTASSIUM GLUCONATE TABS [id number] Jasmin Vargas DIRECTOR LOAN Comment on above: Take by mouth once d aily. simvastatin 20 mg oral tablet (16 sources) HMG-CoA Reductase Inhibitor Start: 8 take 1 tablet by mouth once daily at bedtime simvastatin (ZOCOR) 20 mg tablet Indications: Mixed hyperlipidemia Take 1 tablet by mouth daily at bedtime. 90 tablet 3 04/07/2018 Active SIMVASTATIN 20 M G TABS qd SIMVASTATIN [id number] Jasmin Vargas DIRECTOR LOAN Comment on above: Take 1 tablet by simon th daily at bedtime. triamcinolone acetonide 1 mg/ml topical cream (6 sources) Corticosteroid Start: 01-27-2014 triamcinolone acetonide (KENALOG) 0.1 % cream Indications: Eczematous dermatitis , Pruritus Apply 1 application to affected area twice daily as needed. Avoid use on the face. 60 g 1 01/27/2014 Active Comment on above: Apply 1 application to affected area twice daily as needed. Avoid use on the face. Completed/Discontinued Medications Medication Drug Class(es) Dates Sig (Normalized) Sig (Original) acetaminophen 325 mg / oxyCODONE hydrochloride 5 mg oral tablet (6 sources) Opioid Agonist Start: 12-09-2017 End: 12-16-2017 take 1 tablet by mouth every four hours as needed Oxycodone-Acetamino phen Discontinued 1 TABLET PO EVERY 4 HOURS NEEDED 14 7 December 09, 2017 12:00am December 16, 2017 12:13am calcium citrate / vitamin D (4 sources) Start: 10-08-2016 CALCIUM CITRATE + D 250-200 MG-UNIT TABS CALCIUM CITRATE-VITAMIN D [id number] Jasmin Vargas NP Start: 10-08-2016 CALCIUM CITRAT E + D 250-200 MG-UNIT TABS CALCIUM CITRATE-VITAMIN D [id number] Jasmin Vargas NP docusate sodium 100 mg oral capsule (6 sources) Start: 11-12-2016 End: 03-07-2017 take 100 mg by mouth once daily Docusate Sodium Discontinued 100 MG PO DAILY November 12, 2016 12:00am March 07, 2017 2:11pm MULTIPLE VITAMINS-MINERALS (3 sources) MULTIVITAMIN CASSANDRA LT TABS qd MULTIPLE VITAMINS-MINERALS [id number] Jasmin Vargas NP MULTIPLE VITAMINS-MINERALS (1 source) MULTIVITAMIN CASSANDRA LT TABS qd MULTIPLE VITAMINS-MINERALS [id number] Jasmin Vargas NP levothyroxine sodium 0.137 mg oral tablet (20 sources) l-Thyroxi ne Start: 03-07-2017 End: 11-04-2017 levothyroxine 137 mcg capsule Discontinued PO March 07, 2017 1:00am November 04, 2017 11:36am Start: 07-19-2015 End: 02-09-2019 take 1 tablet by mouth once daily levothyroxine (SYNTHROID) 137 mcg tablet Take 1 tablet by mouth once daily. 90 tablet 3 07/19/2015 Active Comment on above: Take 1 tablet by simon th once daily. Problems Active Problems Problem Classification Problem Date Documented Date Episodic/Chronic Acquired foot deformities (6 sources) Hammer toe; Translations: [Other hammer toe(s) (acquired), left foot] 02-15-2019 Chronic Biliary tract disease (8 sources) Acute cholecystitis; Translations: [Acute cholecystitis] 04-10-2022 Episodic Chronic kidney disease (8 sources) Chronic kidney disease; Translations: [Chronic kidney disease, unspecified] Onset: 04-27-2016 Resolved: 04-07-2018 04-27-2016 Chronic Complications of surgical procedures or medical care (6 sources) Postoperative hypothyroidism; Translations: [Postprocedural hypothyroidism] Onset: 02-02-2010 02-02-2010 Chronic Diseases of white blood cells (6 sources) Leukopenia; Translations: [Decreased white blood cell count, unspecified] Onset: 06-03-2014 06-03-2014 Chronic Disorders of lipid metabolism (7 sources) Mixed hyperlipidemia; Translations: [Mixed hyperlipidemia] Onset: 03-24-2008 12-06-2015 Chronic E Codes: Fall (1 source) Falling injury; Translations: [Unspecified fall, initial encounter] 10-12-2022 Episodic Esophageal disorders (6 sources) Gastroesophageal reflux disease; Translations: [Gastro-esophageal reflux disease without esophagitis] Onset: 03-24-2008 03-24-2008 Chronic Essential hypertension (6 sources) Essential hypertension; Translations: [Essential (primary) hypertension] Onset: 03-24-2008 03-18-2015 Chronic Fracture of lower limb (1 source) Closed fracture patella, transverse ; Translations: [Displaced transverse fracture of left patella, initial encounter for closed fracture] 10-12-2022 Episodic Osteoporosis (6 sources) Senile osteoporosis; Translations: [Age-related osteoporosis without current pathological fracture] Onset: 08-13-2016 08-13-2016 Chronic Other connective tissue disease (6 sources) Pain in toe; Translations: [Pain in left toe(s)] 02-15-2019 Episodic Other diseases of kidney and ureters (1 source) Disorder of kidney and ureter, unspecified; Translations: [Disorder of kidney and ureter, unspecified] Onset: 04-16-2024 Episodic Other inflammatory condition of skin (6 sources) Psoriasis; Translations: [Other psoriasis] Onset: 03-21-2011 03-21-2011 Chronic Pancreatic disorders (not diabetes) (12 sources) Gallstone pancreatitis; Translations: [Biliary acute pancreatitis without necrosis or infection] 04-10-2022 Episodic Rheumatoid arthritis and related disease (10 sources) Rheumatoid factor positive rheumatoid arthritis; Translations: [Rheumatoid arthritis with rheumatoid factor, unspecified] Onset: 03-24-2008 Resolved: 04-07-2018 03-31-2015 Chronic Unclassified (1 source) Contusion of right knee, initial encounter 10-12-2022 Past or Other Problems Problem Classification Problem Date Documented Da te Episodic/Chronic Allergic reactions (12 sources) Psoriasiform dermatitis; Translations: [Other specified dermatitis] Onset: 06-05-2013 06-05-2013 Episodic Inflammation; infection of eye (except that caused by tuberculosis or sexually transmitteddisease) (12 sources) Eczematous dermatitis of eyelid; Translations: [Eczematous dermatitis of unspecified eye, unspecified eyelid] Onset: 06-05-2013 06-05-2013 Episodic Neoplasms of unspecified nature or uncertain behavior (2 sources) Monoclonal gammopathy (clinical); Translations: [Monoclonal gammopathy] Onset: 02-24-2014 Resolved: 03-11-2014 03-11-2014 Chronic Other aftercare (10 sources) Drug therapy finding; Translations: [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] Onset: 08-13-2016 08-13-2016 Episodic Other aftercare (2 sources) 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 operator current use of non-steroidal anti-inflammatory drug; Translations: [Encounter for therapeutic drug level monitoring] Onset: 08-13-2016 08-13-2016 Episodic Other bone disease and musculoskeletal deformities (6 sources) Disorder of skeletal system; Translations: [Disorder of bone, unspecified] Onset: 03-24-2008 03-24-2008 Episodic Other connective tissue disease (6 sources) Other bursal cyst, unspecified site; Translations: [Other ganglion and cyst of synovium, tendon, and bursa] Onset: 04-26-2011 04-26-2011 Episodic Other non-traumatic joint disorders (6 sources) Shoulder joint pain; Translations: [Pain in unspecified shoulder] Onset: 08-01-2009 08-01-2009 Episodic Other skin disorders (6 sources) Fissure in skin; Translations: [Disorder of the skin and subcutaneous tissue, unspecified] Onset: 03-21-2011 03-21-2011 Episodic Other skin disorders (6 sources) Epidermoid cyst of skin; Translations: [Epidermal cyst] Onset: 05-16-2011 05-16-2011 Episodic Other skin disorders (6 sources) Milia; Translations: [Epidermal cyst] Onset: 05-16-2011 05-16-2011 Episodic Other skin disorders (6 sources) Asteatosis cutis; Translations: [Xerosis cutis] Onset: 05-16-2011 05-16-2011 Episodic Residual codes; unclassified (6 sources) Flushing; Translations: [Flushing] Onset: 10-10-2016 10-10-2016 Episodic Spondylosis; intervertebral disc disorders; other back problems (6 sources) Backache; Translations: [Dorsalgia, unspecified] Onset: 09-18-2010 09-18-2010 Episodic Thyroid disorders (12 sources) Hypothyroidism; Translations: [Hypothyroidism, unspecified] Onset: 10-28-2009 Resolved: 02-02-2010 10-08-2016 Chronic Results Test Name Value Interpretation Reference Range Facility Serum Creatinine AND GFRon 0 04-01-2024 Creatinine [Mass/Vol] 1.25 mg/dL High 0.55-1.02 [facility] Comment on above: Result Comment: The validity of the calculated GFR GFRAA in patients over 70 years has not been determined. Clinical correlation is essential. Performed By: #### L [id number] #### [facility] [address] [place], [address] EST GFR - AA 53 mL/min Low >60 [facility] Comment on above: Result Comment: Afri can Tristanian GFR Calc Performed By: #### L [id number] #### [facility] [address] [place], [address] GFR/1.73 sq M.predicted among non-blacks MDRD (S/P/Bld) [Vol rate/Area] 44 mL/min/{1.73_m2} Low >60 [facility] Comment on above: Result Comment: Non- GFR Calc Performed By: #### L [id number] #### [facility] [address] [place], [address] [facility]2023 [facility] [id number] Author: COORDINATOR, MAMMOGRAPHY, ? Service: ? Author Type: Physician Type: Letter Filed: 10/23/2023 15:21 Note Text: October 23, 2023 PID: [id number] Destini Christensen [address] [place] [address] Dear Ms. Christensen, We are pleased to inform you that the results of your recent breast imaging exam on 10/22/2023 are normal. Breast tissue can be either dense or not dense. Dense tissue makes it harder to find breast cancer on a mammogram and also raises the risk of developing breast cancer. Your breast tissue is not dense. Talk to your healthcare provider about breast density, risks for breast cancer, and your individual situation. Early detection of cancer is very important. We also understand recommendations regarding breast cancer screening are controversial. Please discuss with your primary care provider which strategy is best for you and whether a mammogram is right for you. Your imaging studies and report will be kept on file at [facility] as part of your permanent medical record and are available for your continuing care. Thank you for allowing us to help in meeting your health care needs. Sincerely, Dr. Elizondo Interpreting Radiologist [facility] (Normal over 41) Normal [facility] SCREENING W TOMOon 10-21 ABBIE SCREENING W JAIME * * *Final Report* * * DATE OF EXAM: Oct 22 2023 3:10PM WRW [id number] - [facility] SCREENING W JAIME / PROCEDURE REASON: screening * * * * Physician Interpretation * * * * RESULT: #[id number] - ABBIE SCREENING W JAIME BILATERAL DIGITAL SCREENING MAMMOGRAM TOMOSYNTHESIS WITH CAD: 10/22/2023 HISTORY: Screening / Screening Mammogram-Patient reports NO symptoms. /priors available for comparison /SEE TECH NOTE. RESULT: TECHNIQUE: The study was acquired using full field digital technology and interpreted from soft copy. Digital Breast Tomosynthesis (DBT) images were obtained and used to assist in the interpretation of this examination. Current study was also evaluated with a Computer Aided Detection (CAD). Comparison is made to exams dated: 10/19/2022 mammogram, 10/13/2021 mammogram, 09/29/2020 mammogram, and 09/11/2019 mammogram - [facility]. There are scattered areas of fibroglandular density. There are benign post operative findings in the right breast. No significant masses, calcifications, or other findings are seen in either breast. There has been no significant interval change. IMPRESSION: BENIGN There is no mammographic evidence of malignancy. A 1 year screening mammogram is recommended. Mary العلي/mara:10/23/2023 15:21:26 Telegraph Mechanic(s): RT Carolina(R)(M), [facility] letter sent: Normal over 40 Mammogram BI-RADS: Category 2: Benign Multiple national specialty organizations have released breast cancer screening guidelines for women at average risk for developing breast cancer - guidelines that are based on both evidence and opinion, yet differ on when to start and how often to screen for breast cancer. With representation from Breast Imaging, Internal Medicine, Women's Health, Family Medicine, and Medical/Surgical Oncology, the [facility] has carefully reviewed the data and reached the following consensus: 1) All women should engage in shared decision-making with their providers to decide when to start and how often to screen; 2) All women should have the opportunity to start screening mammography at age 40; 3) For women ages 45-55, we recommend annual screening mammograms; 4) For women ages 55 and over, we support both the transition from an annual to a biennial interval if this aligns more with patient's values and preferences, or continuation with annual screening; 5) All women should discuss with their providers when to stop screening mammograms. Paster Hat Lining: Mara Transcribe Date/Time: Oct 22 2023 2:39P Dictated by: MARY ELIZNODO MD This examination was interpreted and the report reviewed and electronically signed by: MARY ELIZONDO MD on Oct 23 2023 3:21PM EST [id number] IACN Normal [facility] Lipid Profileon 08-05-2023 Cholesterol [Mass/Vol] 176 mg/dL Normal 200 [facility] [place] Comment on above: Result Comment: <200 mg/dL Desirable 200-240 mg/dL Borderline >240 mg/dL High Risk Performed By: #### L 500.4100, L501.9520, L506.0400 #### [facility] [address], [address] Cholesterol in HDL [Mass/Vol] 62 mg/dL Normal [facility] Comment on above: Result Comment: The drugs N-Acetylcysteine and Metamizole may falsely depress this assay. Reference Range HDL <40 mg/dL Low HDL Cholesterol HDL >or= 60 mg/dL High HDL Cholesterol Performed By: #### L 500.4100, L501.9520, L506.0400 #### [facility] [address] [place], [address] Cholesterol in LDL [Mass/Vol] 99 mg/dL Normal 0-130 [facility] Comment on above: Performed By: #### L 500.4100, L501.9520, L506.0400 #### [facility] [address] [place], [address] Cholesterol in VLDL [Mass/Vol] 15 mg/dL Normal 5-40 [facility] Comment on above: Performed By: #### L 500.4100, L501.9520, L506.0400 #### [facility] [address] [place], [address] Triglyceride [Mass/Vol] 75 mg/dL Normal [facility] Comment on above: Result Comment: The drugs N-Acetylcysteine and Metamizole may falsely depress this assay. Serum Triglycerides Reference Interval Normal <150 mg/dL Borderline high 150 - 199 mg/dL High 200 - 499 mg/dL Very High > or = 500 mg/dL Performed By: #### L 500.4100, L501.9520, L506.0400 #### [facility] [address] [place], [address] T4 Free Directon 08-05-2023 T4 FREE DIRECT 1.18 ng/dL Normal 0.76-1.46 [facility] Comment on above: Performed By: #### L 500.4100, [id number], L506.0400 #### [facility] [address] [place], [address] Thyroid Stim Hormone (TSH)on 08-05-2023 TSH 2.23 uIU/mL Normal 0.358-3.74 [facility] Comment on above: Performed By: #### L 500.4100, [id number], L506.0400 #### [facility] [address] [place], [address] ABBIE SCREENING W TOMOon 10-19 [facility] Basophil percentageon 2022 Bilirubin [Mass/Vol] 0.60 mg/dL 0.20-1.00 [facility] Comment on above: For patients on eltr ombopag therapy, use of Dimension Poteet TBIL is not recommended. Protein [Mass/Vol] 8.4 g/dL 6.4-8.2 [facility] Direct bilirubinon Bilirubin.direct [Mass/Vol] 0.13 mg/dL 0.00-0.30 [facility] - Chemistry and C hemistry - challengeon 07-09-2022 ALP [Catalytic activity/Vol] 84 U/L 45-117 [facility] ALT [Catalytic activity/Vol] 25 U/L 13-56 [facility] Globulin (S) [Mass/Vol] 4.8 g/dL 2.2-4.2 [facility] Serum or plasma albumin luciana urement (mass/volume)on 07-09-2022 Albumin [Mass/Vol] 3.6 g/dL 3.2-5.0 [facility] Thin prep Papanicolaou smear with manual screeningon 07-09-2022 Thin prep Papanicolaou smear with manual screening 33 U/L 15-37 [facility] Basophil percentageOrdered B y: Dr. Briscoe on 05-25-2022 Cholesterol [Mass/Vol] 194 mg/dL <200 [facility] [place] Comment on above: <200 mg/dL Desirable 200-240 mg/dL Borderline >240 mg/dL High Risk Triglyceride [Mass/Vol] 67 mg/dL <199 [facility] Comment on above: The drugs N-Acetylcy steine and Metamizole may falsely depress this assay.Serum Triglycerides Reference Interval Normal <150 mg/dL Borderline high 150 - 199 mg/dL High 200 - 499 mg/dL Very High > or = 500 mg/dL No Panel InformationOrdered By: Dr. Briscoe on 05-25-2022 Thyroid Stimulating Hormone (TSH) 1.61 uIU/mL 0.358-3.74 [facility] Serum or plasma cholesterol in HDL measurement (mass/volume)Ordered By: Dr. Briscoe on 05-25-2022 Cholesterol in HDL [Mass/Vol] 65 mg/dL >40 [facility] Comment on above: The drugs N-Acetylcy steine and Metamizole may falsely depress this assay. Reference Range HDL <40 mg/dL Low HDL Cholesterol HDL >or= 60 mg/dL High HDL Cholesterol Serum or plasma cholesterol in VLDL measurement (mass/volume)Ordered By: Dr. Briscoe on 05-25-2022 Cholesterol in VLDL [Mass/Vol] 13 mg/dL 5-40 [facility] Serum or plasma low density lipoprotein (LDL) cholesterol measurement (mass/volume)Ordered By: Dr. Briscoe on 05-25-2022 Cholesterol in LDL [Mass/Vol] 116 mg/dL 0-130 [facility] Absolute lymphocyte countOrd ered By: Dr. Aldridge on 04-11-2022 Lymphocytes Auto (Unsp spec) [#/Vol] 0.92 10*3/uL 0.83-4.51 [facility] Basophil percentageOrdered B y: Dr. Aldridge on 04-11-2022 Basophils/100 WBC (Bld) 0.2 % 0-1 [facility] Bilirubin [Mass/Vol] 0.70 mg/dL 0.20-1.00 [facility] Comment on above: For patients on eltr ombopag therapy, use of Dimension Poteet TBIL is not recommended. Chloride [Moles/Vol] 113 mmol/L 98-107 [facility] Eosinophils/100 WBC (Bld) 0.0 % 0-5 [facility] Glucose [Mass/Vol] 110 mg/dL 74-106 [facility] Comment on above: Fasting Glucose resu lt from 100 to 125 mg/dL suggests IMPAIRED HOMEOSTASIS per A.D.A. criteria. Neutrophils (Bld) [#/Vol] 3.6 10*3/uL 2.0-7.7 [facility] Neutrophils/100 WBC (Bld) 74.1 % 47-70 [facility] Potassium [Moles/Vol] 3.8 mmol/L 3.5-5.1 [facility] Protein [Mass/Vol] 6.3 g/dL 6.4-8.2 [facility] Sodium [Moles/Vol] 142 mmol/L 136-145 [facility] WBC (Bld) [#/Vol] 4.8 10*3/uL 4.4-11.0 [facility] Blood erythrocytes count (nu mber/volume)Ordered By: Dr. Aldridge on 04-11-2022 RBC (Bld) [#/Vol] 3.97 10*6/uL 4.2-5.4 [facility] Blood hemoglobin measurement (mass/volume)Ordered By: Dr. Aldridge on 04-11-2022 Hemoglobin (Bld) [Mass/Vol] 12.1 g/dL 12.0-15.0 [facility] Blood lymphocytes/100 leukoc ytesOrdered By: Dr. Aldridge on 04-11-2022 Lymphocytes/100 WBC (Bld) 19.1 % 19-41 [facility] Blood monocytes/100 leukocyt esOrdered By: Dr. Aldridge on 04-11-2022 Monocytes/100 WBC (Bld) 6.4 % 0-10 [facility] Blood platelet mean volumeOr dered By: Dr. Aldridge on 04-11-2022 Platelet mean volume (Bld) [Entitic vol] 10.8 fL 6.2-12.0 [facility] Determination of erythrocyte mean corpuscular volume (MCV)Ordered By: Dr. Aldridge on 04-11-2022 MCV (RBC) [Entitic vol] 92.2 fL 81-99 [facility] Hematocrit Auto (Bld) [Volum e fraction]Ordered By: Dr. Aldridge on 04-11-2022 Hematocrit (Bld) [Volume fraction] 36.6 % 37-47 [facility] - Chemistry and C hemistry - challengeOrdered By: Dr. Aldridge on 04-11-2022 ALP [Catalytic activity/Vol] 58 U/L 45-117 [facility] ALT [Catalytic activity/Vol] 80 U/L 13-56 [facility] CO2 [Moles/Vol] 23.0 mmol/L 21.0-32.0 [facility] Globulin (S) [Mass/Vol] 3.3 g/dL 2.2-4.2 [facility] Lipase [Catalytic activity/Vol] 70 U/L 73-393 [facility] Urea nitrogen/Creatinine [Mass ratio] 18.6 mg/mg 10-20 [facility] - Hematology and Cell countsOrdered By: Dr. Aldridge on 04-11-2022 Erythrocyte distribution width (RBC) [Entitic vol] 46.9 fL 35.1-43.9 [facility] Erythrocyte distribution width (RBC) [Ratio] 13.8 % 11.6-14.6 [facility] Immature granulocytes/100 WBC (Bld) 0.200 % 0.0-0.9 [facility] Comment on above: IG% - Immature Granu locytes (promyelocytes, myelocytes and metamyelocytes) > 1% indicates that a LEFT SHIFT is Present. MCH (RBC) [Entitic mass] 30.5 pg 27.0-32.0 [facility] Nucleated RBC/100 WBC (Bld) [Ratio] 0 % 0-5 [facility] MCHC Auto (RBC) [Mass/Vol]Or dered By: Dr. Aldridge on 04-11-2022 MCHC (RBC) [Mass/Vol] 33.1 g/dL 32-36 [facility] No Panel InformationOrdered By: Dr. Aldridge on 04-11-2022 Estimated Creatinine Clearance Calc 41.97 ml/min [facility] Estimated GFR (MDRD) Amer 96 mL/min >60 [facility] Comment on above: GFR Calc Estimated GFR (MDRD) Non-Af Amer 80 mL/min >60 [facility] Comment on above: Non- GFR Calc Platelets bldOrdered By: Dr. Aldridge on 04-11-2022 Platelets (Bld) [#/Vol] 131 10*3/uL 150-450 [facility] Serum or plasma albumin luciana urement (mass/volume)Ordered By: Dr. Aldridge on 04-11-2022 Albumin [Mass/Vol] 3.0 g/dL 3.2-5.0 [facility] Serum or plasma albumin/glob ulin mass ratioOrdered By: Dr. Aldridge on 04-11-2022 Albumin/Globulin [Mass ratio] 0.9 {ratio} 0.9-2.4 [facility] Serum or plasma calcium luciana urement (mass/volume)Ordered By: Dr. Aldridge on 04-11-2022 Calcium [Mass/Vol] 8.6 mg/dL 8.5-10.1 [facility] Serum or plasma creatinine m easurement (mass/volume)Ordered By: Dr. Aldridge on 04-11-2022 Creatinine [Mass/Vol] 0.75 mg/dL 0.55-1.02 [facility] Comment on above: The validity of the calculated GFR & GFRAA in patients over 70 years has not been determined. Clinical correlation is essential. Serum or plasma urea nitroge n measurement (mass/volume)Ordered By: Dr. Aldridge on 04-11-2022 Urea nitrogen [Mass/Vol] 14 mg/dL 7-18 [facility] Thin prep Papanicolaou smear with manual screeningOrdered By: Dr. Aldridge on 04-11-2022 Thin prep Papanicolaou smear with manual screening 79 U/L 15-37 [facility] Thin prep Papanicolaou smear with manual screening 6 5-15 [facility] Absolute lymphocyte countOrd ered By: Dr. Salomon on 04-10-2022 Lymphocytes Auto (Unsp spec) [#/Vol] 3.78 10*3/uL 0.83-4.51 [facility] Basophil percentageOrdered B y: Dr. Salomon on 04-10-2022 Basophils/100 WBC (Bld) 0.5 % 0-1 [facility] Bilirubin [Mass/Vol] 0.90 mg/dL 0.20-1.00 [facility] Comment on above: For patients on eltr ombopag therapy, use of Dimension Poteet TBIL is not recommended. Chloride [Moles/Vol] 107 mmol/L 98-107 [facility] Eosinophils/100 WBC (Bld) 1.8 % 0-5 [facility] Glucose [Mass/Vol] 199 mg/dL 74-106 [facility] Comment on above: Fasting Glucose resu lt greater than or equal to 126 mg/dL suggests DIABETES MELLITUS per A.D.A. criteria. Neutrophils (Bld) [#/Vol] 3.7 10*3/uL 2.0-7.7 [facility] Neutrophils/100 WBC (Bld) 45.8 % 47-70 [facility] Potassium [Moles/Vol] 3.7 mmol/L 3.5-5.1 [facility] Protein [Mass/Vol] 7.6 g/dL 6.4-8.2 [facility] Sodium [Moles/Vol] 140 mmol/L 136-145 [facility] WBC (Bld) [#/Vol] 8.1 10*3/uL 4.4-11.0 [facility] Blood erythrocytes count (nu mber/volume)Ordered By: Dr. Salomon on 04-10-2022 RBC (Bld) [#/Vol] 5.09 10*6/uL 4.2-5.4 [facility] Blood hemoglobin measurement (mass/volume)Ordered By: Dr. Salomon on 04-10-2022 Hemoglobin (Bld) [Mass/Vol] 15.3 g/dL 12.0-15.0 [facility] Blood lymphocytes/100 leukoc ytesOrdered By: Dr. Salomon on 04-10-2022 Lymphocytes/100 WBC (Bld) 46.6 % 19-41 [facility] Blood monocytes/100 leukocyt esOrdered By: Dr. Salomon on 04-10-2022 Monocytes/100 WBC (Bld) 5.2 % 0-10 [facility] Blood platelet mean volumeOr dered By: Dr. Salomon on 04-10-2022 Platelet mean volume (Bld) [Entitic vol] 11.0 fL 6.2-12.0 [facility] Determination of erythrocyte mean corpuscular volume (MCV)Ordered By: Dr. Salomon on 04-10-2022 MCV (RBC) [Entitic vol] 92.7 fL 81-99 [facility] Direct bilirubinOrdered By: Dr. Salomon on 04-10-2022 Bilirubin.direct [Mass/Vol] 0.32 mg/dL 0.00-0.30 [facility] Hematocrit Auto (Bld) [Volum e fraction]Ordered By: Dr. Salomon on 04-10-2022 Hematocrit (Bld) [Volume fraction] 47.2 % 37-47 [facility] - Chemistry and C hemistry - challengeOrdered By: Dr. Salomon on 04-10-2022 ALP [Catalytic activity/Vol] 69 U/L 45-117 [facility] ALT [Catalytic activity/Vol] 43 U/L 13-56 [facility] CO2 [Moles/Vol] 26.0 mmol/L 21.0-32.0 [facility] Globulin (S) [Mass/Vol] 3.9 g/dL 2.2-4.2 [facility] Lipase [Catalytic activity/Vol] 4813 U/L 73-393 [facility] Urea nitrogen/Creatinine [Mass ratio] 15.7 mg/mg 10-20 [facility] - Hematology and Cell countsOrdered By: Dr. Salomon on 04-10-2022 Erythrocyte distribution width (RBC) [Entitic vol] 46.8 fL 35.1-43.9 [facility] Erythrocyte distribution width (RBC) [Ratio] 13.8 % 11.6-14.6 [facility] Immature granulocytes/100 WBC (Bld) 0.100 % 0.0-0.9 [facility] Comment on above: IG% - Immature Granu locytes (promyelocytes, myelocytes and metamyelocytes) > 1% indicates that a LEFT SHIFT is Present. MCH (RBC) [Entitic mass] 30.1 pg 27.0-32.0 [facility] Nucleated RBC/100 WBC (Bld) [Ratio] 0 % 0-5 [facility] MCHC Auto (RBC) [Mass/Vol]Or dered By: Dr. Salomon on 04-10-2022 MCHC (RBC) [Mass/Vol] 32.4 g/dL 32-36 [facility] No Panel InformationOrdered By: Dr. Salomon on 04-10-2022 Troponin I High Sensitivity 50 pg/mL 3.0-54.0 [facility] Comment on above: Please Note: New Rola t Units and Gender Specific Reference Ranges. For more information see Policy Stat Procedure Poteet High Sensitivity Troponin (TNIH) and attachments. Estimated Creatinine Clearance Calc 34.69 ml/min [facility] Estimated GFR (MDRD) Amer 56 mL/min >60 [facility] Comment on above: GFR Calc Estimated GFR (MDRD) Non-Af Amer 46 mL/min >60 [facility] Comment on above: Non- GFR Calc Platelets bldOrdered By: Dr. Salomon on 04-10-2022 Platelets (Bld) [#/Vol] 217 10*3/uL 150-450 [facility] Serum or plasma albumin luciana urement (mass/volume)Ordered By: Dr. Salomon on 04-10-2022 Albumin [Mass/Vol] 3.7 g/dL 3.2-5.0 [facility] Serum or plasma calcium luciana urement (mass/volume)Ordered By: Dr. Salomon on 04-10-2022 Calcium [Mass/Vol] 9.6 mg/dL 8.5-10.1 [facility] Serum or plasma creatinine m easurement (mass/volume)Ordered By: Dr. Salomon on 04-10-2022 Creatinine [Mass/Vol] 1.21 mg/dL 0.55-1.02 [facility] Comment on above: The validity of the calculated GFR & GFRAA in patients over 70 years has not been determined. Clinical correlation is essential. Serum or plasma urea nitroge n measurement (mass/volume)Ordered By: Dr. Salomon on 04-10-2022 Urea nitrogen [Mass/Vol] 19 mg/dL 7-18 [facility] Thin prep Papanicolaou smear with manual screeningOrdered By: Dr. Salomon on 04-10-2022 Thin prep Papanicolaou smear with manual screening 50 U/L 15-37 [facility] Thin prep Papanicolaou smear with manual screening 7 5-15 [facility] ABBIE SCREENING W [facility] 10-13 [facility] ic Lab Report: T4 Free Directon 11-28-2016 Thyroxine (T4) free 1.53 ng/dL High 0.76-1.46 [facility] Work Phone: Lab Report: Thyroid Stim Hor albert (TSH)on 11-28-2016 Thyroid stimulating hormone (TSH) 0.47 u[iU]/mL Invalid Interpretation Code 0.358-3.74 [facility] Work Phone: Lab Report: T4 Free Directon 10-08-2016 Thyroxine (T4) free 1.62 ng/dL High 0.76-1.46 [facility] Work Phone: Lab Report: Thyroid Stim Hor albert (TSH)on 10-08-2016 Thyroid stimulating hormone (TSH) 0.55 u[iU]/mL Invalid Interpretation Code 0.358-3.74 [facility] Work Phone: Office Visit: Initial visito n 10-08-2016 Adult depression screening assessment Adult depression screening assessment Invalid Interpretation Code [facility] Work Phone: Documentation of current medications (procedure) Done Invalid Interpretation Code [facility] Work Phone: Tobacco smoking status NHIS Never Invalid Interpretation Code [facility] Work Phone: Tobacco use CPHS Former smoker Invalid Interpretation Code [facility] Work Phone: Vital Signs Date Time Vital Sign Value Performing Clinician Facility 10-12-2022 21:40-0400 Diastolic blood pressure 79 mm[Hg] [facility] 10-12-2022 21:40-0400 Heart rate 84 /min [facility] 10-12-2022 21:40-0400 Respiratory rate 16 /min [facility] 10-12-2022 21:40-0400 SaO2% (BldA) [Mass fraction] 97 % [facility] 10-12-2022 21:40-0400 Systolic blood pressure 150 mm[Hg] [facility] 10-12-2022 20:13-0400 Body height 162.[address] [facility] 10-12-2022 20:13-0400 Body mass index (BMI) [Ratio] 30.4 kg/m2 [facility] 10-12-2022 20:13-0400 Body temperature 97.5 [degF] [facility] 10-12-2022 20:13-0400 Body weight 80.[address] [facility] 04-11-2022 08:16-0500 Body temperature 99.1 [degF] Dr. Renee Briscoe Work Phone: [facility] 04-11-2022 08:16-0500 Diastolic blood pressure 85 mm[Hg] Dr. Renee Briscoe Work Phone: [facility] 04-11-2022 08:16-0500 Heart rate 74 /min Dr. Renee Briscoe Work Phone: [facility] 04-11-2022 08:16-0500 Respiratory rate 16 /min Dr. Renee Briscoe Work Phone: [facility] 04-11-2022 08:16-0500 SaO2% (BldA) [Mass fraction] 97 % Dr. Renee Briscoe Work Phone: [facility] 04-11-2022 08:16-0500 Systolic blood pressure 152 mm[Hg] Dr. Renee Briscoe Work Phone: [facility] 04-10-2022 20:29-0500 Body height 162.[address] Renee Briscoe Work Phone: [facility] 04-10-2022 20:29-0500 Body mass index (BMI) [Ratio] 28.9 kg/m2 Dr. Renee Briscoe Work Phone: [facility] 04-10-2022 20:29-0500 Body weight 76.[address] Renee Briscoe Work Phone: [facility] 04-10-2022 15:33-0500 Body temperature 97 [degF] Dr. Renee Briscoe Work Phone: [facility] 04-10-2022 15:33-0500 Diastolic blood pressure 74 mm[Hg] Dr. Renee Briscoe Work Phone: [facility] 04-10-2022 15:33-0500 Heart rate 76 /min Dr. Renee Briscoe Work Phone: [facility] 04-10-2022 15:33-0500 Respiratory rate 14 /min Dr. Renee Briscoe Work Phone: [facility] 04-10-2022 15:33-0500 SaO2% (BldA) [Mass fraction] 97 % Dr. Renee Briscoe Work Phone: [facility] 04-10-2022 15:33-0500 Systolic blood pressure 151 mm[Hg] Dr. Renee Briscoe Work Phone: [facility] 04-10-2022 15:27-0500 Body height 162.[address] Renee Briscoe Work Phone: [facility] 04-10-2022 15:27-0500 Body mass index (BMI) [Ratio] 28.3 kg/m2 Dr. Renee Briscoe Work Phone: [facility] 04-10-2022 15:27-0500 Body weight 74.[address] Renee Briscoe Work Phone: [facility] 10-08-2016 08:23-0400 BMI (Body Mass Index) 25.37 kg/m2 Piedad Engle CMA [facility] Work Phone: 10-08-2016 08:23-0400 Body Temperature 98.6 [degF] Piedad Engle [facility] Work Phone: 10-08-2016 08:23-0400 BP Diastolic 85 mm[Hg] Piedad Engle CMA [facility] Work Phone: 10-08-2016 08:23-0400 BP Systolic 135 mm[Hg] Piedad Engle C[facility] Work Phone: 10-08-2016 08:23-0400 Height 162.56 cm Piedad Engle [facility] Work Phone: 10-08-2016 08:23-0400 Pulse (Heart Rate) 87 /min Piedad Engle [facility] Work Phone: 10-08-2016 08:23-0400 Respiratory Rate 20 /min [facility] Work Phone: 10-08-2016 08:23-0400 Weight 67.04 kg [facility] Work Phone: Encounters Encounter Date Encounter Type Care Provider Facility Start: 04-01-2024 End: 04-01-2024 ambulatory Renee Briscoe Facility:[facility] Start: 10-23-2023 End: 10-24-2023 Documentation procedure Mammography Coordinator [facility] Start: 10-23-2023 End: 10-24-2023 Letter encounter Mammography Coordinator [facility] Start: 10-22-2023 End: 10-22-2023 ambulatory RENEE BRISCOE Facility:[facility] Start: 10-22-2023 End: 10-22-2023 Subsequent hospital visit by physician Screen Mammo [facility] Mammogram Start: 08-05-2023 End: 08-05-2023 ambulatory Renee Briscoe Facility:[facility] Start: 10-22-2022 Documentation procedure Mammog daniel Coordinator [facility] Start: 10-22-2022 Letter encounter Mammography Coordinator [facility] Department Start: 10-19-2022 End: 10-19-2022 Subsequent hospital visit by physician Screen Mammo [facility] Mammogram Start: 10-12-2022 End: 10-12-2022 Emergency department patient visit [facility]-Emergency Department Work Phone: Start: 07-09-2022 End: 07-09-2022 Patient encounter procedure [facility] Work Phone: Start: 05-25-2022 End: 05-25-[address] Renee Briscoe Work Phone: [facility] Work Phone: Start: 05-25-2022 End: 05-25-[address] Renee Briscoe Work Phone: [facility] Start: 04-24-2022 End: 04-24-[address] Renee Briscoe Work Phone: [facility] Start: 04-11-2022 Non-patient / Non-visit Dr. Lance Briscoe Work Phone: [facility] Start: 04-10-2022 End: 04-11-2022 Evaluation and management of inpatient [facility] R[facility] Start: 04-10-2022 Non-patient / Non-visit Dr. Lance Briscoe Work Phone: [facility] Start: 04-10-2022 End: 04-10-2022 Emergency department patient visit Dr. Renee Briscoe Work Phone: [facility]-Emergency Department Start: 11-23-2021 End: 11-23-2021 ambulatory [facility] Work Phone: Start: 11-23-2021 End: 11-23-2021 Patient encounter procedure [facility]-Laboratory, Specimen Start: 10-13-2021 Documentation procedure Mammog daniel Coordinator [facility] Start: 10-13-2021 Letter encounter Mammography Coordinator [facility] Department Start: 10-13-2021 End: 10-13-2021 Subsequent hospital visit by physician Screen Mammo [facility] Mammogram Procedures Date Procedure Procedure Detail Performing Clinician Start: 10-19-2022 Screening digital br east tomosynthesis bi [facility] Provider Start: 10-12-2022 Radiologic examinati on of knee Start: 04-10-2022 Total cholecystectom y and exploration of common bile duct Dr. Renee Briscoe Work Phone: Start: 04-10-[address] Lary Briscoe Work Phone: Start: 04-10-2022 Fluoroscopic guidance Lee Briscoe Work Phone: Start: 04-10-2022 US scan of gallbladder Dr. Renee Briscoe Work Phone: Start: 04-10-2022 Plain chest X-ray Dr. Naresh Briscoe Work Phone: Start: 10-13-2021 ABBIE SCREENING W JAIME Melvin f Provider Start: 10-13-2021 Mammography Screen Wst r Start: 02-20-2017 Adult depression scr eening assessment Screen [facility]str Start: 10-08-2016 End: 11-28-2016 Thyrotropin [Units/volume] in Serum or Plasma Jasmin Vargas DIRECTOR LOAN Work Phone: Start: 10-08-2016 End: 11-28-2016 Thyroxine (T4) free [Mass/volume] in Serum or Plasma Jasmin Vargas DIRECTOR LOAN Work Phone: Start: 10-08-2016 End: 10-08-2016 Thyroid stimulating hormone (TSH) Jasmin Vargas DIRECTOR LOAN Work Phone: Start: 10-08-2016 End: 10-08-2016 Thyroxine (T4) free Jasmin Vargas DIRECTOR LOAN Work Phone: Start: 09-08-2013 Colonoscopy Screen Wst r Plan of Treatment Date Care Activity Detail Author Start: 10-20-2023 Covid-19 Vaccine ( season) Covid-19 Vaccine () [facility] Start: 10-20-2023 Influenza vaccination [facility] Start: 02-18-2023 Advance Directive Discussion Advance Directive Discussion [facility] Start: 10-23-2022 Shingrix Vaccine (2 of 2) Shingrix Vaccine (2 of 2) [facility] Start: 10-19-2022 Covid-19 Vaccine ( season) Covid-19 Vaccine () [facility] Start: 10-19-2022 Influenza vaccination [facility] Start: 10-13-2022 Mammography MAMMOGRAM [facility] Start: 04-11-2022 Patient discharge [facility] Start: 04-10-2022 Application of intermittent pneumatic compression device [facility] Start: 04-10-2022 Following clinical pathway protocol [facility] Start: 04-10-2022 Ambulation without limitation [facility] Start: 04-10-2022 Following clinical pathway protocol [facility] Start: 04-10-2022 Incentive spirometry [facility] Start: 04-10-2022 Taking patient vital signs [facility] Start: 04-10-2022 [facility] Start: 04-10-2022 Total cholecystectomy and exploration of common bile duct Laparoscopic, Cholecystectomy with IOC (Not Applicable) [facility] Start: 04-10-2022 Fluoroscopic guidance O.R. Fluoro for [facility] Start: 04-10-2022 Cholangiogram Cholangiogram/ O R,Initial [facility] Start: 04-10-2022 Admission procedure [facility] Start: 04-10-2022 [facility] Start: 02-18-2022 ADVANCE DIRECTIVE DISCUSSION ADVANCE DIRECTIVE DISCUSSION [facility] Start: 02-18-2022 DEPRESSION ASSESSMENT DEPRESSION ASSESSMENT [facility] Start: 02-15-2022 COVID-19 VACCINE (6 - Moderna risk series) COVID-19 VACCINE (6 - Moderna risk series) [facility] Start: 10-19-2021 Influenza vaccination INFLUENZA (#1) [facility] Start: 10-08-2021 COVID-19 VACCINE (5 - Booster for Moderna series) COVID-19 VACCINE (5 - Booster for Moderna series) [facility] Start: 04-20-2021 LIPID SCREEN LIPID SCREEN [facility] Start: 04-05-2021 DIABETES SCREEN DIABETES SCREEN [facility] Start: 04-05-2021 Diabetes Screening Diabetes Screening [facility] Start: 02-18-2021 ADVANCE DIRECTIVE DISCUSSION ADVANCE DIRECTIVE DISCUSSION [facility] Start: 09-04-2019 Screening for osteoporosis Bone Density Screening [facility] Start: 04-07-2019 ANNUAL PCP TEAM CHRONIC DISEASE VISIT ANNUAL PCP TEAM CHRONIC DISEASE VISIT [facility] Start: 04-05-2019 Creatinine measurement Serum Creatinine [facility] Start: 04-05-2019 SERUM CREATININE SERUM CREATININE [facility] Start: 02-20-2018 Adult depression screening assessment DEPRESSION SCREENING [facility] Start: 04-20-2017 COLORECTAL CANCER SCREENING COLORECTAL CANCER SCREENING [facility] Start: 04-20-2017 FECAL OCCULT BLOOD FECAL OCCULT BLOOD [facility] Start: 10-08-2016 End: 11-28-2016 Thyroid stimulating hormone (TSH) *TSH [facility] Work Phone: Start: 10-08-2016 End: 11-28-2016 Thyroxine (T4) free *T4 free [facility] Work Phone: Start: 10-08-2016 End: 10-08-2016 Appointment Appointment [facility] Work Phone: Start: 10-08-2016 End: 10-08-2016 Thyroid stimulating hormone (TSH) *TSH [facility] Work Phone: Start: 10-08-2016 End: 10-08-2016 Thyroxine (T4) free *T4 free [facility] Work Phone: Start: 09-08-2014 Colonoscopy COLONOSCOPY [facility] Start: 03-27-2011 SHINGRIX VACCINE (1 of 2) SHINGRIX VACCINE (1 of 2) [facility] Start: 07-26-2009 Urine microalbumin profile [facility] Start: 2006 RSV Vaccine (1 - 1-dose 60+ series) RSV Vaccine (1 - 1-dose 60+ series) [facility] Start: 12-04-1991 COLOGUARD (FIT-DNA) COLOGUARD (FIT-DNA) [facility] Start: 12-04-[address] COLONOGRAPHY [facility] Start: 12-04-1991 SIGMOIDOSCOPY SIGMOIDOSCOPY [facility] Start: 1964 Annual PCP Team Chronic Disease Visit Annual PCP Team Chronic Disease Visit [facility] Start: 1964 Anxiety Screening Anxiety Screening [facility] Start: 1964 BP CONTROLLED (<130/80) BP CONTROLLED (<130/80) [facility] Start: 1964 Depression Screening Depression Screening [facility] Patient Education ED Contusion, Lower Extremity ED Patella Fracture [facility] Work Phone: Patient referral [facility] Work Phone: Immunizations Immunization Date Immunization Notes Care Provider Fa cility 11-20-2022 influenza virus vacc ine, unspecified formulation Screen Wstr [facility] 12-21-2021 Covid Pfizer Bivalen t Booster Dr. Renee Briscoe Work Phone: [facility] 12-21-2021 influenza, high dose seasonal, preservative-free Dr. Renee Briscoe Work Phone: [facility] 12-21-2021 influenza virus vacc ine, unspecified formulation Screen [facility] 06-08-2021 Covid (Moderna) Dr. Renee Burroughs iedel Work Phone: [facility] 01-05-2021 Covid (Moderna) Dr. Renee Burroughs iedel Work Phone: [facility] 04-28-2020 Covid (Moderna) Dr. Renee Burroughs iedel Work Phone: [facility] 03-31-2020 Covid (Moderna) Dr. Renee Burroughs iedel Work Phone: [facility] 11-15-2017 influenza, high dose seasonal, preservative-free Screen [facility] Work Phone: 11-06-2016 influenza, high dose seasonal, preservative-free Screen [facility] Work Phone: 12-06-2015 influenza, high dose seasonal, preservative-free Screen [facility] Work Phone: 03-31-2015 pneumococcal conjuga te vaccine, 13 valent Screen [facility] 12-27-2014 influenza, high dose seasonal, preservative-free Screen [facility] 11-11-2013 influenza, seasonal, injectable Screen [facility] 11-11-2013 pneumococcal polysaccharide vaccine, 23 valent Screen [facility] 11-12-2012 influenza virus vacc ine, unspecified formulation Screen [facility] Work Phone: 11-19-2011 influenza virus vacc ine, unspecified formulation Screen [facility] Work Phone: 01-30-2011 zoster vaccine, live Screen [facility] Work Phone: 11-20-2010 influenza virus vacc ine, unspecified formulation Screen [facility] Work Phone: 11-24-2009 influenza virus vacc ine, unspecified formulation Screen [facility] Work Phone: 07-25-2009 tetanus and diphther ia toxoids, adsorbed, preservative free, for adult use (2 Lf of tetanus toxoid and 2 Lf of diphtheria toxoid) Screen [facility] 02-18-2006 pneumococcal polysaccharide vaccine, 23 valent Screen [facility] Work Phone: Payers Date Payer Category Payer Self-pay [id number] 2015 Private Health Insurance HUMANA HUMANA MEDICARE SUPPLEMENT [id number] 2015-Present [phone] [address] [address] [place] [address] Indemnity [id number] 2015 Private Health Insurance [id number] 2011 Medicare MEDICARE MEDICAR E A AND B [id number] 2011-Present [phone] [address] [address] [place] [address] Medicare [id number] 2011 Medicare [id number] Unknown [id number] Unknown [id number] Social History Date Type Detail Facility [facility]: [facility]11[facility] Start: 03-24-1966 End: 03-24-2006 History of tobacco use Current smoker [facility] Start: 03-24-1966 End: 03-24-2006 History of tobacco use Cigarette Smoker [facility] Start: 06-11-2014 End: 10-19-2022 Cigarettes smoked current (pack per day) - Reported 1 [facility] Start: 06-11-2014 Tobacco use and exposure Smokeless tobacco non-user [facility] Start: 04-29-2019 Alcohol intake 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) [facility] Start: 03-29-2008 History SDOH Alcohol Comment rare [facility] Start: 1945 Sex Assigned At Not on file [facility] Start: 10-31-2020 End: 10-12-2022 Tobacco smoking status NHIS Unknown if ever smoked [facility] Start: 09-23-2020 None [facility] Start: 09-23-2020 Alone [facility] Start: 02-09-2019 Non-smoker [facility] Start: 1945 Sex Assigned At Female W [facility] Start: 04-29-2019 End: 10-19-2022 Tobacco use panel [facility] National Score (1-100), lower number is lower risk 48 [facility] NEGATED: Highlighted row [facility] Medical Equipment Procedure Code Equipment Code Equipment Original Text Equipment Identifier Dates Total cholecystectomy with exploration of common bile duct Ligation clip, synthetic polymer, non-bioabsorbable [id number] FDA Start: 04-10-2022 Total cholecystectomy with exploration of common bile duct Ligation clip, synthetic polymer, non-bioabsorbable [id number] FDA Start: 04-10-2022 Goals Date Patient Goal Desired Activity /State Functional Status Date Assessment Result Facility 04-11-2022 Functional status Chair [facility] Work Phone: Mental Status Date Assessment Result Facility 04-11-2022 Cognitive function Voice/Name [facility] Work Phone: 04-10-2022 Cognitive function Level Of Consciousness Drowsy [facility] Work Phone: Clinical Notes 08-13-2016 to 10-23-2023 Letter - Coordinator, Mammography - 10/23/2023 3:21 PM Josetter - Coordinator, Mammography - 10/23/2023 3:21 PM EDTSJose almanza Mammo Tech - 10/22/2023 2:40 PM EDT Note Date & Type Note Facility 10-23-2023 Note Formatting of this n ote might be different from the original. October 23, 2023 PID: [id number] Destini Slade Ruth [address] [place] [address] Dear Ms. Christensen, We are pleased to inform you that the results of your recent breast imaging exam on 10/22/2023 are normal. Breast tissue can be either dense or not dense. Dense tissue makes it harder to find breast cancer on a mammogram and also raises the risk of developing breast cancer. Your breast tissue is not dense. Talk to your healthcare provider about breast density, risks for breast cancer, and your individual situation. Early detection of cancer is very important. We also understand recommendations regarding breast cancer screening are controversial. Please discuss with your primary care provider which strategy is best for you and whether a mammogram is right for you. Your imaging studies and report will be kept on file at [facility] as part of your permanent medical record and are available for your continuing care. Thank you for allowing us to help in meeting your health care needs. Sincerely, Dr. Elizondo Interpreting Radiologist [facility] (Normal over 40) [facility] 10-23-2023 Miscellaneous Notes October 23, 2023 PID: [id number] Destini Christensen [address] [place] [address] Dear Lilianpako, We are pleased to inform you that the results of your recent breast imaging exam on 10/22/2023 are normal. Breast tissue can be either dense or not dense. Dense tissue makes it harder to find breast cancer on a mammogram and also raises the risk of developing breast cancer. Your breast tissue is not dense. Talk to your healthcare provider about breast density, risks for breast cancer, and your individual situation. Early detection of cancer is very important. We also understand recommendations regarding breast cancer screening are controversial. Please discuss with your primary care provider which strategy is best for you and whether a mammogram is right for you. Your imaging studies and report will be kept on file at [facility] as part of your permanent medical record and are available for your continuing care. Thank you for allowing us to help in meeting your health care needs. Sincerely, Dr. Elizondo Interpreting Radiologist [facility] (Normal over 40) documented in this encounter [facility] 10-22-2023 History of Presen t illness Narrative Radiology Service Progress Note PATIENT NAME: Destini Christensen DATE OF SERVICE: October 22, 2023 TIME: 3:08 PM PATIENT IDENTITY VERIFICATION COMPLETED USING TWO (2) IDENTIFIERS: Name and Date of confirmed by patient verbally. FALL SCREENING: Has the patient had 2 falls in the last year or 1 fall with injury or currently using an Ambulatory Assistive Device (Walker, Cane, Wheelchair, Crutches, etc.)? Yes, Patient High Risk for Falls What interventions were put in place to prevent falls during this visit? Increased Observations by Caregivers PATIENT GENDER DATA: Female. status: : No status: NO. PATIENT RELEVANT IMPLANT DATA REVIEWED: Not Applicable PATIENT PRESENTS WITH AN IMPLANTABLE OR ATTACHED INTERNAL GRINDING MACHINE OPERATOR: No RADIOLOGY DEPARTMENT: Mammography PERIPHERAL IV DATA: Not applicable SIGNED BY: Jerman Figueroa October 22, 2023 3:08 PM documented in this encounter [facility] 10-22-2023 Note HNO ID: [id number] Author: JOSE LATHAM Mammo Tech Service: ? Author Type: Technologist Type: Progress Notes Filed: 10/22/2023 15:09 Note Text: Radiology Service Progress Note PATIENT NAME: Destini Christensen DATE OF SERVICE: October 22, 2023 TIME: 3:08 PM PATIENT IDENTITY VERIFICATION COMPLETED USING TWO (2) IDENTIFIERS: Name and Date of confirmed by patient verbally. FALL SCREENING: Has the patient had 2 falls in the last year or 1 fall with injury or currently using an Ambulatory Assistive Device (Walker, Cane, Wheelchair, Crutches, etc.)? Yes, Patient High Risk for Falls What interventions were put in place to prevent falls during this visit? Increased Observations by Caregivers PATIENT GENDER DATA: Female. status: : No status: NO. PATIENT RELEVANT IMPLANT DATA REVIEWED: Not Applicable PATIENT PRESENTS WITH AN IMPLANTABLE OR ATTACHED INTERNAL GRINDING MACHINE OPERATOR: No RADIOLOGY DEPARTMENT: Mammography PERIPHERAL IV DATA: Not applicable SIGNED BY: Jerman Figueroa October 22, 2023 3:08 PM [facility] 10-22-2022 Miscellaneous Notes October 23, 2022 PID: [id number] Destini Christensen [address] [place] [address] Dear Ms. Christensen, We are pleased to inform you that the results of your recent breast imaging exam on 10/19/2022 are normal. Early detection of cancer is very important. We also understand recommendations regarding breast cancer screening are controversial. Please discuss with your primary care provider which strategy is best for you and whether a mammogram is right for you. Your imaging studies and report will be kept on file at [facility] as part of your permanent medical record and are available for your continuing care. Thank you for allowing us to help in meeting your health care needs. Sincerely, Dr. Hayes Interpreting Radiologist [facility] (Normal over 40) documented in this encounter [facility] 10-19-2022 History of Presen t illness Narrative Radiology Service Progress Note PATIENT NAME: Destini Christensen DATE OF SERVICE: October 19, 2022 TIME: 10:03 AM PATIENT IDENTITY VERIFICATION COMPLETED USING TWO (2) IDENTIFIERS: Name and Date of confirmed by patient verbally. FALL SCREENING: Has the patient had 2 falls in the last year or 1 fall with injury or currently using an Ambulatory Assistive Device (Walker, Cane, Wheelchair, Crutches, etc.)? No PATIENT GENDER DATA: Female. status: : No status: NO. PATIENT RELEVANT IMPLANT DATA REVIEWED: Not Applicable RADIOLOGY DEPARTMENT: Mammography PERIPHERAL IV DATA: Not applicable SIGNED BY: Jerman Salgado October 19, 2022 10:03 AM documented in this encounter [facility] 10-12-2022 Discharge summary Note Date/Time October 12, 2022 8:28pm [facility] Medical Records Department [address] [place] [address] Emergency Department Summary 10/12/22 MR#: [id number] Acct: [id number] Name: DESTINI CHRISTENSEN Rep #:[id number] : 1945 76 From: Adolfo Avalos MD PCP: Dr. Renee Briscoe MD Status:REG ER Location: ED HPI History of Present Illness Chief Complaint: Fall Detail of Chief Complaint: Injury due to fall right and left knee Informant: patient and EMS Occured/Mechanism Mechanism/Context: Yes injury, Yes blunt trauma and Yes same level fall Comment: Patient was walking on the patio. Thought the screen door was open. Went in the screen and then fell on both her right and left knee. Patient states she is not on an anticoagulant. Onset/Context/Timing Context: Sudden Onset Timing: Continuous Quality of Pain: Dull and Aching Location: Left knee greater than right Current Severity: Mild Maximum Severity: Severe Worsened by: Palpation, movement especially the left Relieved by: Nothing Associated Symptoms Associated Symptoms: Positive for Loss of Funtion (Left due to pain) Narrative Narrative: Patient is a 76-year-old woman with history of hypothyroidism, rheumatoid arthritis who presents with blunt injury to her right and left knee after directfall onto her right and left knee. She denies paresthesia, anesthesia medics. Denies head trauma. Denies neck pain. Denies low back pain. Tetanus Immunization: Unknown Prior similar symptoms: No Recent Illness/Hospitalization: No PFSH PFSH Medical History Alcohol use Bladder disease Bone fracture Breast lump Broken femur Cataracts, bilateral Femur fracture, right Former smoker Gastric reflux GI problem High cholesterol History of steroid therapy History of stress test HTN (hypertension) Hypothyroidism Left foot amputee Low iron Neuropathy Osteoarthritis Osteopenia Pneumonia Rheumatoid arthritis Rheumatoid arthritis Seasonal allergies UTI (urinary tract infection) Vision problems Home Medications amlodipine 5 mg tablet 5 mg PO QDAY BP 03/07/17 [History Last Taken 11/07/20] ascorbic acid (vitamin C) 500 mg capsule 500 mg PO DAILY SUPPLEMENT 03/07/17 [History Last Taken Unknown] calcium citrate 250 mg calcium-vitamin D3 5 mcg (200 unit) tablet 1 tab PO BID SUPPLEMENT 03/07/17 [History Last Taken Unknown] estradiol 0.5 mg tablet 0.5 mg PO QDAY HORMONE 03/07/17 [History Last Taken Unknown] ferrous sulfate 134 mg (27 mg iron) tablet 134 mg PO QDAY 03/07/17 [History Last Taken Unknown] flunisolide 25 mcg (0.025 %) nasal spray 2 spray intranasal BID ALLERGIES 03/07/17 [History Last Taken Unknown] folic acid 0.8 mg capsule 800 mcg PO QDAY 03/07/17 [History Last Taken Unknown] hydroxychloroquine 200 mg tablet 300 mg PO QDAY RA 03/07/17 [History Last Taken Unknown] infliximab 100 mg intravenous solution (Remicade) See Rx Instructions .Route .COMPLEX 03/07/17 [History Last Taken 10/31/17] lisinopril 20 mg tablet 20 mg PO BID BP 03/07/17 [History Last Taken 11/07/20] methotrexate sodium 2.5 mg tablet 7.5 tab PO THEODORE RA 03/07/17 [History Last Taken Unknown] multivitamin 1 tab PO QDAY 03/07/17 [History Last Taken Unknown] omeprazole 20 mg capsule,delayed release 20 mg PO BID REFLUX 03/07/17 [History Last Taken 11/07/20] potassium gluconate 2.5 mEq tablet 99 meq PO QDAY 03/07/17 [History Last Taken Unknown] simvastatin 20 mg tablet 20 mg PO QPM 03/07/17 [History Last Taken Unknown] glucosamine sulf dipot chlr,msm,chond 550 mg-C 30 mg-whit 1 mg capsule 1 ea PO DAILY 02/09/19 [History Last Taken Unknown] levothyroxine 137 mcg tablet 137 mcg PO MOTUWETHFRSA 02/09/19 [History Last Taken Unknown] docosahexaenoic acid 300 mg capsule (DHA Algal-900) 900 mg PO DAILY 10/31/20 [History Last Taken Unknown] acetaminophen 325 mg tablet (Tylenol) 650 mg (2 x 325 mg) PO Q4H PRN PRN Pain 1-10 Or Fever #0 tabs 04/11/22 [Rx Last Taken Unknown] oxycodone 5 mg tablet 5 - 10 mg (1 - 2 x 5 mg) PO Q4H PRN PRN Pain Score 4-10 5 days #15 tabs 04/11/22 [Rx Last Taken Unknown] hydrocodone-acetaminophen 5-325mg 5mg-325mg 1 tab PO Q6H PRN PRN Pain 5 days #20TABLETS 10/12/22 [Rx Last Taken Unknown] Allergy/AdvReac Type Severity Reaction Status Date / Time adhesive tape Allergy Severe Unknown Verified 10/12/22 20:18 grass pollen Allergy Severe Unknown Verified 10/12/22 20:18 house dust Allergy Severe Unknown Verified 10/12/22 20:18 Family History Mother Thyroid disorder Grandmother Diabetes Osteoporosis Grandfather Arthritis Surgical History H/O Achilles tendon repair H/O colonoscopy H/O foot surgery H/O shoulder replacement H/O thyroidectomy H/O: hysterectomy S/P laparoscopic cholecystectomy Status post fusion of wrist Social History Smoking Status: Former smoker second hand exposure: No alcohol intake: never substance use type: does not use ROS ROS ED Constitutional Constitutional ED: Denies chills, fever(s), subjective or sweats Eyes Eyes: Denies blurry vision or change in vision Cardiovascular Cardiovascular: Denies chest pain or palpitations Respiratory/Chest Respiratory/Chest: Denies cough or dyspnea Gastrointestinal Gastrointestinal: Reports other Details: Denies black stool. ; Denies diarrhea, nausea or vomiting Musculoskeletal Musculoskeletal: Reports other Details: Right and left knee pain ; Denies arthralgias, back pain, myalgias or neck pain Neurologic Neurologic: Denies paresthesias or weakness Hematologic/Lymphatic Hematologic/Lymphatic: Denies easy bleeding or easy bruising EXAM Physical Exam Const Vital Signs: 10/12/22 20:13 10/12/22 20:20 Temperature 97.5 F L Temperature Source Oral Pulse Rate 80 Respiratory Rate 16 Respiratory Effort Normal Non-Labored Respiratory Depth Normal Respiratory Pattern Normal Blood Pressure 152/81 H Blood Pressure Mean 104 Pulse Ox 96 Oxygen Delivery Method Room Air Room Air Positive well nourished, well developed and obese Constitutional Narrative: Appears in discomfort. General Appearance ED: well developed Nutritional Appearance: obese HEENT Reports moist mucous membranes normocephalic and atraumatic Eyes PERRL Eyes Narrative: Extraocular muscles are back. There is no subconjunctival hemorrhage. Sclera is anicteric. Neck full ROM Chest Wall inspection of chest normal and palpation of chest normal Resp normal respiratory effort, no retractions and clear to auscultation bilaterally Cardio regular rate, regular rhythm, S1 normal heart sound, S2 normal heart sound and no murmurs Extremity Negative for normal to inspection Extremity Narrative: There is significant swelling of the left knee compared to the right. There is pain ovation over the patella. Difficult to ascertain whether there is an effusion versus extra articular fluid collection. Patient has joint line tenderness both right and left. She is able to extend her right and left leg against gravity. Will obtain x-ray prior to completing exam. General Extremety ED: Yes weight-bearing difficulty General Extremity: weight-bearing difficulty Neuro oriented x3, CN's II-XII intact bilaterally and moves all extremities Sensorium / Orientation: alert Psych mental status grossly normal Skin Skin Narrative: Multiple bruises right and left knee. MDM MDM MDM Narrative Medical decision making narrative: X-rays of right knee was obtained because of concern for possible tibial plateaufracture. There is significant swelling inferior to the patella. There is bruising noted as well. X-ray of the left knee was obtained because of concern for patella fracture. Patient did receive IV morphine for her pain. Radiography Chest X-Ray - ED: 2 View (4 view x-ray of the left knee was ordered and only 2 were performed. There is a transverse versus fracture of the patella. There isno other abnormality that is acute. There is degenerative changes noted.) and Read by ED Physician (For view x-ray of the right knee was obtained. There is no effusion. There is no fracture. There is significant degenerative changes. There is intramedullary dereck noted distal portion of the femur. Both the right and left knee was independently reviewed and interpreted by me at 03/21/2004.) Discharge Plan Triage Chief Complaint: Fall ED Provider: Adolfo Avalos Dx/Rx/DC Orders Clinical Impression: Injury due to fall, Closed transverse fracture of left patella, Contusion of right knee, initial encounter Instructions: ED Contusion, Lower Extremity, ED Patella Fracture Prescriptions: New hydrocodone-acetaminophen [hydrocodone-acetaminophen] 5-325 mg tablet 1 tab PO Q6H PRN PRN (Reason: Pain) 5 Days Qty: 20 0RF No Action infliximab [Remicade] 100 mg recon soln See Rx Instructions .ROUTE .COMPLEX Patient Comments: q 60 days Rx Instructions: q 60 days methotrexate sodium 2.5 mg tablet 7.5 tab PO THEODORE hydroxychloroquine 200 mg tablet 300 mg PO QDAY lisinopril 20 mg tablet 20 mg PO BID amlodipine 5 mg tablet 5 mg PO QDAY simvastatin 20 mg tablet 20 mg PO QPM omeprazole 20 mg capsule,delayed release(DR/EC) 20 mg PO BID estradiol 0.5 mg tablet 0.5 mg PO QDAY flunisolide 25 mcg (0.025 %) spray,non-aerosol 2 spray INTRANASAL BID multivitamin tablet 1 tab PO QDAY calcium citrate 250 mg calcium-vitamin D3 200 unit tablet 250 mg calcium- 200 unit tablet 1 tab PO BID ascorbic acid (vitamin C) 500 mg capsule 500 mg PO DAILY folic acid 0.8 mg capsule 800 mcg PO QDAY potassium gluconate 2.5 mEq tablet 99 meq PO QDAY ferrous sulfate 134 mg (27 mg iron) tablet 134 mg (27 mg iron) tablet 134 mg PO QDAY glucos sul [id number] 1 EACH capsule 1 ea PO DAILY levothyroxine 137 MCG tablet 137 mcg PO MOTUWETHFRSA DHA Algal-900 300 mg Capsule 900 mg PO DAILY acetaminophen [Tylenol] 325 mg Tablet 650 mg PO Q4H PRN PRN (Reason: Pain 1-10 Or Fever) Qty: 0 0RF oxycodone 5 mg Tablet 5 - 10 mg PO Q4H PRN PRN (Reason: Pain Score 4-10) 5 Days Qty: 15 0RF Primary Care Provider: Renee Briscoe Referrals: Renee Briscoe MD [Primary Care Provider] - Tim Vera DO [Med Staff - Active Staff] - 5-7 Days Disposition Disposition: Home, Self Care What to do if you have Problems For any increased pain, shortness of breath, bleeding, nausea or vomiting, chestpain, or any unexpected problems, contact your Primary Care Provider. Call [facility] ([phone]) or report to the closest Emergency Room. Call 911 if necessary. 10/12/222109 <Electronically signed by Adolfo Avalos MD> Cosigner Signature (if applicable): CC: Dr. Renee Briscoe MD ~ Signed [facility] Work Phone: 1(268) 300-627502-21-2023 Procedure [facility] 04-10-[address] Salomon [facility] April 10, 2022 2:15pm Note Date/Time April 10, 2022 8:44am [facility] Medical Records Department [address] [place] [address] Emergency Department Summary 04/10/22 MR#: [id number] Acct: [id number] Name: DESTINI CHRISTENSEN Rep #:[id number] : 1945 76 From: Guera Salomon MD PCP: Dr. Renee Briscoe MD Status:REG ER Location: ED HPI History of Present Illness Chief Complaint: Chest Pain Detail of Chief Complaint: Chest pain, indigestion Informant: patient Narrative Narrative: Patient states that last evening she had some mild indigestion with reflux. Shewent to bed and did not think much of it. She woke up at 630 this morning and felt back to baseline. She ate oatmeal for breakfast. Shortly after this she developed pain with nausea, vomiting, diarrhea. She complains of pain across her lower chest and down into her abdomen. She states that her vision went blue and she felt lightheaded and sweaty. EMS was called. They gave 1 nitro and patient's blood pressure dropped into the 70s systolic. At the time of my exam she is on IV fluids and blood pressure is improving. [facility] Medical History Alcohol use Bladder disease Bone fracture Breast lump Broken femur Cataracts, bilateral Femur fracture, right Former smoker Gastric reflux GI problem High cholesterol History of steroid therapy History of stress test HTN (hypertension) Hypothyroidism Left foot amputee Low iron Neuropathy Osteoarthritis Osteopenia Pneumonia Rheumatoid arthritis Rheumatoid arthritis Seasonal allergies UTI (urinary tract infection) Vision problems Home Medications amlodipine 5 mg tablet 5 mg PO QDAY BP 03/07/17 [History Last Taken 11/07/20] ascorbic acid (vitamin C) 500 mg capsule 500 mg PO DAILY SUPPLEMENT 03/07/17 [History Last Taken Unknown] calcium citrate 250 mg calcium-vitamin D3 5 mcg (200 unit) tablet 1 tab PO BID SUPPLEMENT 03/07/17 [History Last Taken Unknown] estradiol 0.5 mg tablet 0.5 mg PO QDAY HORMONE 03/07/17 [History Last Taken Unknown] ferrous sulfate 134 mg (27 mg iron) tablet 134 mg PO QDAY 03/07/17 [History Last Taken Unknown] flunisolide 25 mcg (0.025 %) nasal spray 2 spray intranasal BID ALLERGIES 03/07/17 [History Last Taken Unknown] folic acid 0.8 mg capsule 800 mcg PO QDAY 03/07/17 [History Last Taken Unknown] hydroxychloroquine 200 mg tablet 300 mg PO QDAY RA 03/07/17 [History Last Taken Unknown] infliximab 100 mg intravenous solution (Remicade) See Rx Instructions .Route .COMPLEX 03/07/17 [History Last Taken 10/31/17] lisinopril 20 mg tablet 20 mg PO BID BP 03/07/17 [History Last Taken 11/07/20] methotrexate sodium 2.5 mg tablet 7.5 tab PO THEODORE RA 03/07/17 [History Last Taken Unknown] multivitamin 1 tab PO QDAY 03/07/17 [History Last Taken Unknown] omeprazole 20 mg capsule,delayed release 20 mg PO BID REFLUX 03/07/17 [History Last Taken 11/07/20] potassium gluconate 2.5 mEq tablet 2.5 meq PO QDAY 03/07/17 [History Last Taken Unknown] simvastatin 20 mg tablet 20 mg PO QPM 03/07/17 [History Last Taken Unknown] glucosamine sulf dipot chlr,msm,chond 550 mg-C 30 mg-whit 1 mg capsule 1 ea PO DAILY 02/09/19 [History Last Taken Unknown] levothyroxine 137 mcg tablet 137 mcg PO MOTUWETHFRSA 02/09/19 [History Last Taken Unknown] docosahexaenoic acid 300 mg capsule (DHA Algal-900) 900 mg PO DAILY 10/31/20 [History Last Taken Unknown] Allergy/AdvReac Type Severity Reaction Status Date / Time adhesive tape Allergy Severe Unknown Verified 09/18/21 17:07 grass pollen Allergy Severe Unknown Verified 11/07/20 07:38 house dust Allergy Severe Unknown Verified 11/07/20 07:38 Family History Mother Thyroid disorder Grandmother Diabetes Osteoporosis Grandfather Arthritis Surgical History H/O Achilles tendon repair H/O colonoscopy H/O foot surgery H/O shoulder replacement H/O thyroidectomy H/O: hysterectomy Status post fusion of wrist Social History Smoking Status: Former smoker second hand exposure: No alcohol intake: never substance use type: does not use ROS ROS ED Constitutional Constitutional ED: Denies chills or fever(s) Eyes Eyes: Denies change in vision or discharge from eye(s) ENT ENT ED: Denies discharge from eye(s), rhinorrhea or sore throat Cardiovascular Cardiovascular: Reports chest pain; Denies palpitations Respiratory/Chest Respiratory/Chest: Denies cough or dyspnea Gastrointestinal Gastrointestinal: Reports abdominal pain, diarrhea, nausea and vomiting Genitourinary Genitourinary ED: Denies dysuria Musculoskeletal Musculoskeletal: Denies back pain or extremity pain Integumentary Denies Abrasions or rash Neurologic Neurologic: Reports weakness; Denies headache(s) Psychiatric Psychiatric: Denies anxiety or depression Allergic/Immunologic Allergic/Immunologic ED: Denies lip swelling or urticaria EXAM Physical Exam Const Vital Signs: 04/10/22 08:20 04/10/22 08:32 04/10/22 08:46 Temperature 97.2 F L Temperature Source Oral Pulse Rate 56 L 56 L Respiratory Rate 18 Blood Pressure 70/46 L 85/50 L Blood Pressure Mean 54 61 Pulse Ox 95 Oxygen Delivery Method Room Air Room Air 04/10/22 11:26 04/10/22 12:11 Temperature Temperature Source Pulse Rate 74 65 Respiratory Rate 18 17 Blood Pressure 142/71 H 139/68 H Blood Pressure Mean 94 91 Pulse Ox 97 97 Oxygen Delivery Method Room Air Room Air Positive well nourished and well developed General Appearance ED: well developed HEENT Reports normocephalic and head/scalp atraumatic Eyes PERRL and EOMs intact bilaterally Neck supple Chest Wall inspection of chest normal and palpation of chest normal Resp normal respiratory effort and clear to auscultation bilaterally Cardio regular rate and regular rhythm GI non-tender Auscultation: hypoactive bowel sounds Palpation: soft Extremity normal to inspection Neuro oriented x3 and no sensory deficits noted Neuro Narrative: Generalized weakness with no focal deficits. Sensorium / Orientation: alert Psych mental status grossly normal Skin no rashes or lesions noted MDM MDM MDM Narrative Medical decision making narrative: Patient is given IV fluids. She is placed on development editor. EKG, chest x-ray, lab work obtained. Lab Data Attestation: I reviewed the patient's lab results. Labs: Laboratory Results - last 24 hr 04/10/22 04/10/22 04/10/22 08:30 08:30 11:28 WBC 8.1 RBC 5.09 Hgb 15.3 H Hct 47.2 H MCV 92.7 MCH 30.1 MCHC 32.4 RDW Std Deviation 46.8 H RDW Coeff of Darleen 13.8 Plt Count 217 MPV 11.0 Immature Gran % (Auto) 0.100 Neut % (Auto) 45.8 L Lymph % (Auto) 46.6 H [place] % (Auto) 5.2 Eos % (Auto) 1.8 Baso % (Auto) 0.5 Absolute Neuts (auto) 3.7 Absolute Lymphs (auto) 3.78 Nucleated RBC % 0 Sodium 140 Potassium 3.7 Chloride 107 Carbon Dioxide 26.0 Anion Gap 7 BUN 19 H Creatinine 1.21 H Estim Creat Clear Calc 34.69 Est GFR (MDRD) Af Amer 56 L Est GFR (MDRD) Non-Af 46 L BUN/Creatinine Ratio 15.7 Glucose 199 H Calcium 9.6 Total Bilirubin 0.90 Direct Bilirubin 0.32 H AST 50 H ALT 43 Alkaline Phosphatase 69 Troponin I High Sens 57 H 50 Total Protein 7.6 Albumin 3.7 Globulin 3.9 Lipase 4813 H Radiography Chest X-Ray - ED: 1 View, Read by ED Physician, Chronic Changes and No Infiltrates Diagnostic Testing: Clinical Impression(s) from Imaging Studies Chest X-Ray 04/10/22 09:05 IMPRESSION: Hyperinflation. Mild degree of increased markings at the left lung base suggestive of either atelectasis and/or scarring. Electronically Signed: Arley Frazier MD at 9:50 EST , Gallbladder Ultrasound 04/10/22 10:13 IMPRESSION: Gallbladder wall thickening and mild distention. Multiple gallstones. Sludge is seen within the gallbladder lumen. Dilated common bile duct. Electronically Signed: Arley Frazier MD at 11:25 EST , EKG Initial EKG: Attestation: I personally reviewed and interpreted this EKG as follows: Interpretation: Sinus Bradycardia (Sinus at 56 with bifascicular block. Similar in appearance to prior study from 2020.) Treatment and Re-Evaluation Narrative: CBC reveals normal white count with no left shift. Chemistry studies remarkableonly for a BUN of 19 and creatinine 1.21. Glucose is 199. Initial troponin is minimally elevated at 57. LFTs reveal direct bilirubin of 0.32 and an AST of 50. ALT is normal at 43. Lipase is elevated at 4813. Patient is sent for right upper quadrant ultrasound. This reveals gallbladder wall thickening with mild distention of multiple gallstones. Common bile duct is dilated but no stone is visualized in the duct at this time. Delta troponin is performed and returns at 50. I spoke with Dr. Aldridge who presented to the emergency room to evaluate the patient. He will admit her to his service with plan to go to the OR today for cholecystectomy. Patient is given a dose of Zosyn. Discharge Plan Triage Chief Complaint: Chest Pain ED Provider: Guera Salomon Dx/Rx/DC Orders Clinical Impression: Gallstone pancreatitis Prescriptions: No Action infliximab [Remicade] 100 mg recon soln See Rx Instructions .ROUTE .COMPLEX Label Comments: q 60 days Rx Instructions: q 60 days methotrexate sodium 2.5 mg tablet 7.5 tab PO THEODORE hydroxychloroquine 200 mg tablet 300 mg PO QDAY lisinopril 20 mg tablet 20 mg PO BID amlodipine 5 mg tablet 5 mg PO QDAY simvastatin 20 mg tablet 20 mg PO QPM omeprazole 20 mg capsule,delayed release(DR/EC) 20 mg PO BID estradiol 0.5 mg tablet 0.5 mg PO QDAY flunisolide 25 mcg (0.025 %) spray,non-aerosol 2 spray INTRANASAL BID multivitamin tablet 1 tab PO QDAY calcium citrate 250 mg calcium-vitamin D3 200 unit tablet 250 mg calcium- 200 unit tablet 1 tab PO BID ascorbic acid (vitamin C) 500 mg capsule 500 mg PO DAILY folic acid 0.8 mg capsule 800 mcg PO QDAY potassium gluconate 2.5 mEq tablet 2.5 meq PO QDAY ferrous sulfate 134 mg (27 mg iron) tablet 134 mg (27 mg iron) tablet 134 mg PO QDAY glucos sul [id number]-Mn 1 EACH capsule 1 ea PO DAILY levothyroxine 137 MCG tablet 137 mcg PO MOTUWETHFRSA DHA Algal-900 300 mg Capsule 900 mg PO DAILY Primary Care Provider: Renee Briscoe Referrals: Renee Briscoe MD [Primary Care Provider] - Disposition Disposition: Acute Care Hospital [facility] What to do if you have Problems For any increased pain, shortness of breath, bleeding, nausea or vomiting, chestpain, or any unexpected problems, contact your Primary Care Provider. Call [facility] ([phone]) or report to the closest Emergency Room. Call 911 if necessary. 04/10/22 1415 <Electronically signed by Guera Salomon MD> Cosigner Signature (if applicable): CC: Dr. Renee Briscoe MD ~ Signed [facility] Work Phone: 1(200) 652-812602-21-2023 History and physical note Author Dr. Aldridge [facility] April 10, 2022 2:10pm Note Date/Time April 10, 2022 2:00pm [facility] Medical Records Department [address] [place] [id number] H&P Exam - Surgical 04/10/22 1358 MR#: [id number] Acct: [id number] Name: DESTINI CHRISTENSEN Rep #:[id number] : 1945 76 From: Victor M saleem MD PCP: Dr. Renee Briscoe MD Status:REG ER Location: ED HPI - General General Date of Admission: 04/10/22 HPI Narrative DESTINI CHRISTENSEN, is a 76 F who presents with epigastric pain. Patient says this started this morning around 7 AM. She had lower chest and epigastric pain whichhave now resolved. She is still having some right upper quadrant pain. She didhave nausea but no vomiting and she denied fevers and chills. [facility] Medical History Alcohol use Bladder disease Bone fracture Breast lump Broken femur Cataracts, bilateral Femur fracture, right Former smoker Gastric reflux GI problem High cholesterol History of steroid therapy History of stress test HTN (hypertension) Hypothyroidism Left foot amputee Low iron Neuropathy Osteoarthritis Osteopenia Pneumonia Rheumatoid arthritis Rheumatoid arthritis Seasonal allergies UTI (urinary tract infection) Vision problems Home Medications amlodipine 5 mg tablet 5 mg PO QDAY BP 03/07/17 [History Last Taken 11/07/20] ascorbic acid (vitamin C) 500 mg capsule 500 mg PO DAILY SUPPLEMENT 03/07/17 [History Last Taken Unknown] calcium citrate 250 mg calcium-vitamin D3 5 mcg (200 unit) tablet 1 tab PO BID SUPPLEMENT 03/07/17 [History Last Taken Unknown] estradiol 0.5 mg tablet 0.5 mg PO QDAY HORMONE 03/07/17 [History Last Taken Unknown] ferrous sulfate 134 mg (27 mg iron) tablet 134 mg PO QDAY 03/07/17 [History Last Taken Unknown] flunisolide 25 mcg (0.025 %) nasal spray 2 spray intranasal BID ALLERGIES 03/07/17 [History Last Taken Unknown] folic acid 0.8 mg capsule 800 mcg PO QDAY 03/07/17 [History Last Taken Unknown] hydroxychloroquine 200 mg tablet 300 mg PO QDAY RA 03/07/17 [History Last Taken Unknown] infliximab 100 mg intravenous solution (Remicade) See Rx Instructions .Route .COMPLEX 03/07/17 [History Last Taken 10/31/17] lisinopril 20 mg tablet 20 mg PO BID BP 03/07/17 [History Last Taken 11/07/20] methotrexate sodium 2.5 mg tablet 7.5 tab PO THEODORE RA 03/07/17 [History Last Taken Unknown] multivitamin 1 tab PO QDAY 03/07/17 [History Last Taken Unknown] omeprazole 20 mg capsule,delayed release 20 mg PO BID REFLUX 03/07/17 [History Last Taken 11/07/20] potassium gluconate 2.5 mEq tablet 2.5 meq PO QDAY 03/07/17 [History Last Taken Unknown] simvastatin 20 mg tablet 20 mg PO QPM 03/07/17 [History Last Taken Unknown] glucosamine sulf dipot chlr,msm,chond 550 mg-C 30 mg-whit 1 mg capsule 1 ea PO DAILY 02/09/19 [History Last Taken Unknown] levothyroxine 137 mcg tablet 137 mcg PO MOTUWETHFRSA 02/09/19 [History Last Taken Unknown] docosahexaenoic acid 300 mg capsule (DHA Algal-900) 900 mg PO DAILY 10/31/20 [History Last Taken Unknown] Allergy/AdvReac Type Severity Reaction Status Date / Time adhesive tape Allergy Severe Unknown Verified 09/18/21 17:07 grass pollen Allergy Severe Unknown Verified 11/07/20 07:38 house dust Allergy Severe Unknown Verified 11/07/20 07:38 Family History Mother Thyroid disorder Grandmother Diabetes Osteoporosis Grandfather Arthritis Surgical History H/O Achilles tendon repair H/O colonoscopy H/O foot surgery H/O shoulder replacement H/O thyroidectomy H/O: hysterectomy Status post fusion of wrist Social History Smoking Status: Former smoker second hand exposure: No alcohol intake: never substance use type: does not use ROS Constitutional Constitutional: Denies anorexia, fatigue or fever(s) Eyes Eyes: Denies blurry vision ENT HEENT: Denies abnormal hearing Respiratory/Chest Respiratory/Chest: Denies cough or dyspnea Gastrointestinal Gastrointestinal: Reports abdominal pain and nausea; Denies constipation, diarrhea or vomiting Genitourinary Genitourinary: Denies change in urinary stream Musculoskeletal Musculoskeletal: Denies abnormal gait Integumentary Integumentary: Denies jaundice Psychiatric Psychiatric: Denies anxiety Endocrine Endocrinology: Denies flushing Hematologic/Lymphatic Hematologic/Lymphatic: Denies easy bleeding Vital Signs Vital Signs Vital Signs: 04/10/22 08:20 04/10/22 08:32 04/10/22 08:46 Temperature 97.2 F L Temperature Source Oral Pulse Rate 56 L 56 L Respiratory Rate 18 Blood Pressure 70/46 L 85/50 L Blood Pressure Mean 54 61 Pulse Ox 95 Oxygen Delivery Method Room Air Room Air 04/10/22 11:26 04/10/22 12:11 Temperature Temperature Source Pulse Rate 74 65 Respiratory Rate 18 17 Blood Pressure 142/71 H 139/68 H Blood Pressure Mean 94 91 Pulse Ox 97 97 Oxygen Delivery Method Room Air Room Air Weight Weight: 164 lb 10.965 oz Body Mass Index (BMI) 28.3 Physical Exam Const oriented x3 and no apparent distress Resp normal respiratory effort Cardio regular rate and regular rhythm GI soft to palpation Palpation: tender RUQ Extremity normal to inspection Results Lab / Micro Data Result Diagrams: 04/10/22 08:30 04/10/22 08:30 Labs: Laboratory Results - last 24 hr 04/10/22 08:30: WBC 8.1, RBC 5.09, Hgb 15.3 H, Hct 47.2 H, MCV 92.7, MCH 30.1, MCHC 32.4, RDW Std Deviation 46.8 H, RDW Coeff of Darleen 13.8, Plt Count 217, MPV 11.0, Immature Gran % (Auto) 0.100, Neut % (Auto) 45.8 L, Lymph % (Auto) 46.6 H,[place] % (Auto) 5.2, Eos % (Auto) 1.8, Baso % (Auto) 0.5, Absolute Neuts (auto) 3.7, Absolute Lymphs (auto) 3.78, Nucleated RBC % 0 04/10/22 08:30: Sodium 140, Potassium 3.7, Chloride 107, Carbon Dioxide 26.0, Anion Gap 7, BUN 19 H, Creatinine 1.21 H, Estim Creat Clear Calc 34.69, Est GFR (MDRD) Af Amer 56 L, Est GFR (MDRD) Non-Af 46 L, BUN/Creatinine Ratio 15.7, Glucose 199 H, Calcium 9.6, Total Bilirubin 0.90, Direct Bilirubin 0.32 H, AST 50 H,ALT 43, Alkaline Phosphatase 69, Troponin I High Sens 57 H, Total Protein 7.6, Albumin 3.7, Globulin 3.9, Lipase 4813 H 04/10/22 11:28: Troponin I High Sens 50 Radiology Impression Chest X-Ray 04/10/22 09:05 IMPRESSION: Hyperinflation. Mild degree of increased markings at the left lung base suggestive of either atelectasis and/or scarring. Electronically Signed: Arley Frazier MD at 9:50 EST , Gallbladder Ultrasound 04/10/22 10:13 IMPRESSION: Gallbladder wall thickening and mild distention. Multiple gallstones. Sludge is seen within the gallbladder lumen. Dilated common bile duct. Electronically Signed: Arley Frazier MD at 11:25 EST , Assessment & Plan Assessment/Plan (1) Gallstone pancreatitis: (2) Acute cholecystitis: PLAN: Plan The patient had his pain was in the epigastric area but the epigastric pain has resolved since coming to the emergency room. She is still having some right upper quadrant pain. Currently she denies nausea but she says she had some thismorning. Ultrasound showed gallbladder wall thickening and ductal dilation withgallstones but her LFTs are normal. Her lipase is elevated. She likely has gallstone pancreatitis with possible acute cholecystitis. The stone in her ductmay have passed as her pain has resolved. I recommend starting with laparoscopic cholecystectomy with cholangiogram today. I did discuss with her that if it shows a stone or obstruction she would need ERCP tomorrow. I discussed laparoscopic cholecystectomy with her in detail as well. I will admit her to the floor and plan on operating later today. She was given a dose of antibiotics in the emergency room. Patient is on methotrexate and Remicade for her rheumatoid arthritis and I did inform her of increased risk of complicationsdue to this and she understands. I discussed the procedure in detail with the patient. I discussed the risks, benefits, and alternatives of the procedure. I discussed the risks including but not limited to bleeding, infection, injury to surrounding organs such as theliver, bile duct, bowels. I did discuss the possibility of having to convert riaz open procedure as well as the possibility that if any injuries occurred this may necessitate further surgery at a tertiary care center. Victor M Aldridge MD Pager: [facility] [address] [place] [address], [address] [place] [address] Office: 04/10/22 1410 <Electronically signed by Victor M Aldridge MD> Cosigner Signature (if applicable): CC: Dr. Victor M Aldridge MD; Dr. Renee Briscoe MD~ Signed [facility] Work Phone: [phone]) 213-783202-21-[address] Salomon [facility] April 10, 2022 2:15pm Note Date/Time April 10, 2022 8:44am [facility] Medical Records Department [address] [place] [address] Emergency Department Summary 04/10/22 MR#: [id number] Acct: [id number] Name: DESTINI CHRISTENSEN Rep #:[id number] : 1945 76 From: Guera Salomon MD PCP: Dr. Renee Briscoe MD Status:REG ER Location: ED HPI History of Present Illness Chief Complaint: Chest Pain Detail of Chief Complaint: Chest pain, indigestion Informant: patient Narrative Narrative: Patient states that last evening she had some mild indigestion with reflux. Shewent to bed and did not think much of it. She woke up at 630 this morning and felt back to baseline. She ate oatmeal for breakfast. Shortly after this she developed pain with nausea, vomiting, diarrhea. She complains of pain across her lower chest and down into her abdomen. She states that her vision went blue and she felt lightheaded and sweaty. EMS was called. They gave 1 nitro and patient's blood pressure dropped into the 70s systolic. At the time of my exam she is on IV fluids and blood pressure is improving. [facility] Medical History Alcohol use Bladder disease Bone fracture Breast lump Broken femur Cataracts, bilateral Femur fracture, right Former smoker Gastric reflux GI problem High cholesterol History of steroid therapy History of stress test HTN (hypertension) Hypothyroidism Left foot amputee Low iron Neuropathy Osteoarthritis Osteopenia Pneumonia Rheumatoid arthritis Rheumatoid arthritis Seasonal allergies UTI (urinary tract infection) Vision problems Home Medications amlodipine 5 mg tablet 5 mg PO QDAY BP 03/07/17 [History Last Taken 11/07/20] ascorbic acid (vitamin C) 500 mg capsule 500 mg PO DAILY SUPPLEMENT 03/07/17 [History Last Taken Unknown] calcium citrate 250 mg calcium-vitamin D3 5 mcg (200 unit) tablet 1 tab PO BID SUPPLEMENT 03/07/17 [History Last Taken Unknown] estradiol 0.5 mg tablet 0.5 mg PO QDAY HORMONE 03/07/17 [History Last Taken Unknown] ferrous sulfate 134 mg (27 mg iron) tablet 134 mg PO QDAY 03/07/17 [History Last Taken Unknown] flunisolide 25 mcg (0.025 %) nasal spray 2 spray intranasal BID ALLERGIES 03/07/17 [History Last Taken Unknown] folic acid 0.8 mg capsule 800 mcg PO QDAY 03/07/17 [History Last Taken Unknown] hydroxychloroquine 200 mg tablet 300 mg PO QDAY RA 03/07/17 [History Last Taken Unknown] infliximab 100 mg intravenous solution (Remicade) See Rx Instructions .Route .COMPLEX 03/07/17 [History Last Taken 10/31/17] lisinopril 20 mg tablet 20 mg PO BID BP 03/07/17 [History Last Taken 11/07/20] methotrexate sodium 2.5 mg tablet 7.5 tab PO THEODORE RA 03/07/17 [History Last Taken Unknown] multivitamin 1 tab PO QDAY 03/07/17 [History Last Taken Unknown] omeprazole 20 mg capsule,delayed release 20 mg PO BID REFLUX 03/07/17 [History Last Taken 11/07/20] potassium gluconate 2.5 mEq tablet 2.5 meq PO QDAY 03/07/17 [History Last Taken Unknown] simvastatin 20 mg tablet 20 mg PO QPM 03/07/17 [History Last Taken Unknown] glucosamine sulf dipot chlr,msm,chond 550 mg-C 30 mg-whit 1 mg capsule 1 ea PO DAILY 02/09/19 [History Last Taken Unknown] levothyroxine 137 mcg tablet 137 mcg PO MOTUWETHFRSA 02/09/19 [History Last Taken Unknown] docosahexaenoic acid 300 mg capsule (DHA Algal-900) 900 mg PO DAILY 10/31/20 [History Last Taken Unknown] Allergy/AdvReac Type Severity Reaction Status Date / Time adhesive tape Allergy Severe Unknown Verified 09/18/21 17:07 grass pollen Allergy Severe Unknown Verified 11/07/20 07:38 house dust Allergy Severe Unknown Verified 11/07/20 07:38 Family History Mother Thyroid disorder Grandmother Diabetes Osteoporosis Grandfather Arthritis Surgical History H/O Achilles tendon repair H/O colonoscopy H/O foot surgery H/O shoulder replacement H/O thyroidectomy H/O: hysterectomy Status post fusion of wrist Social History Smoking Status: Former smoker second hand exposure: No alcohol intake: never substance use type: does not use ROS ROS ED Constitutional Constitutional ED: Denies chills or fever(s) Eyes Eyes: Denies change in vision or discharge from eye(s) ENT ENT ED: Denies discharge from eye(s), rhinorrhea or sore throat Cardiovascular Cardiovascular: Reports chest pain; Denies palpitations Respiratory/Chest Respiratory/Chest: Denies cough or dyspnea Gastrointestinal Gastrointestinal: Reports abdominal pain, diarrhea, nausea and vomiting Genitourinary Genitourinary ED: Denies dysuria Musculoskeletal Musculoskeletal: Denies back pain or extremity pain Integumentary Denies Abrasions or rash Neurologic Neurologic: Reports weakness; Denies headache(s) Psychiatric Psychiatric: Denies anxiety or depression Allergic/Immunologic Allergic/Immunologic ED: Denies lip swelling or urticaria EXAM Physical Exam Const Vital Signs: 04/10/22 08:20 04/10/22 08:32 04/10/22 08:46 Temperature 97.2 F L Temperature Source Oral Pulse Rate 56 L 56 L Respiratory Rate 18 Blood Pressure 70/46 L 85/50 L Blood Pressure Mean 54 61 Pulse Ox 95 Oxygen Delivery Method Room Air Room Air 04/10/22 11:26 04/10/22 12:11 Temperature Temperature Source Pulse Rate 74 65 Respiratory Rate 18 17 Blood Pressure 142/71 H 139/68 H Blood Pressure Mean 94 91 Pulse Ox 97 97 Oxygen Delivery Method Room Air Room Air Positive well nourished and well developed General Appearance ED: well developed HEENT Reports normocephalic and head/scalp atraumatic Eyes PERRL and EOMs intact bilaterally Neck supple Chest Wall inspection of chest normal and palpation of chest normal Resp normal respiratory effort and clear to auscultation bilaterally Cardio regular rate and regular rhythm GI non-tender Auscultation: hypoactive bowel sounds Palpation: soft Extremity normal to inspection Neuro oriented x3 and no sensory deficits noted Neuro Narrative: Generalized weakness with no focal deficits. Sensorium / Orientation: alert Psych mental status grossly normal Skin no rashes or lesions noted MDM MDM MDM Narrative Medical decision making narrative: Patient is given IV fluids. She is placed on development editor. EKG, chest x-ray, lab work obtained. Lab Data Attestation: I reviewed the patient's lab results. Labs: Laboratory Results - last 24 hr 04/10/22 04/10/22 04/10/22 08:30 08:30 11:28 WBC 8.1 RBC 5.09 Hgb 15.3 H Hct 47.2 H MCV 92.7 MCH 30.1 MCHC 32.4 RDW Std Deviation 46.8 H RDW Coeff of Darleen 13.8 Plt Count 217 MPV 11.0 Immature Gran % (Auto) 0.100 Neut % (Auto) 45.8 L Lymph % (Auto) 46.6 H [place] % (Auto) 5.2 Eos % (Auto) 1.8 Baso % (Auto) 0.5 Absolute Neuts (auto) 3.7 Absolute Lymphs (auto) 3.78 Nucleated RBC % 0 Sodium 140 Potassium 3.7 Chloride 107 Carbon Dioxide 26.0 Anion Gap 7 BUN 19 H Creatinine 1.21 H Estim Creat Clear Calc 34.69 Est GFR (MDRD) Af Amer 56 L Est GFR (MDRD) Non-Af 46 L BUN/Creatinine Ratio 15.7 Glucose 199 H Calcium 9.6 Total Bilirubin 0.90 Direct Bilirubin 0.32 H AST 50 H ALT 43 Alkaline Phosphatase 69 Troponin I High Sens 57 H 50 Total Protein 7.6 Albumin 3.7 Globulin 3.9 Lipase 4813 H Radiography Chest X-Ray - ED: 1 View, Read by ED Physician, Chronic Changes and No Infiltrates Diagnostic Testing: Clinical Impression(s) from Imaging Studies Chest X-Ray 04/10/22 09:05 IMPRESSION: Hyperinflation. Mild degree of increased markings at the left lung base suggestive of either atelectasis and/or scarring. Electronically Signed: Arley Frazier MD at 9:50 EST , Gallbladder Ultrasound 04/10/22 10:13 IMPRESSION: Gallbladder wall thickening and mild distention. Multiple gallstones. Sludge is seen within the gallbladder lumen. Dilated common bile duct. Electronically Signed: Arley Frazier MD at 11:25 EST , EKG Initial EKG: Attestation: I personally reviewed and interpreted this EKG as follows: Interpretation: Sinus Bradycardia (Sinus at 56 with bifascicular block. Similar in appearance to prior study from 2020.) Treatment and Re-Evaluation Narrative: CBC reveals normal white count with no left shift. Chemistry studies remarkableonly for a BUN of 19 and creatinine 1.21. Glucose is 199. Initial troponin is minimally elevated at 57. LFTs reveal direct bilirubin of 0.32 and an AST of 50. ALT is normal at 43. Lipase is elevated at 4813. Patient is sent for right upper quadrant ultrasound. This reveals gallbladder wall thickening with mild distention of multiple gallstones. Common bile duct is dilated but no stone is visualized in the duct at this time. Delta troponin is performed and returns at 50. I spoke with Dr. Aldridge who presented to the emergency room to evaluate the patient. He will admit her to his service with plan to go to the OR today for cholecystectomy. Patient is given a dose of Zosyn. Discharge Plan Triage Chief Complaint: Chest Pain ED Provider: Guera Salomon Dx/Rx/DC Orders Clinical Impression: Gallstone pancreatitis Prescriptions: No Action infliximab [Remicade] 100 mg recon soln See Rx Instructions .ROUTE .COMPLEX Label Comments: q 60 days Rx Instructions: q 60 days methotrexate sodium 2.5 mg tablet 7.5 tab PO THEODORE hydroxychloroquine 200 mg tablet 300 mg PO QDAY lisinopril 20 mg tablet 20 mg PO BID amlodipine 5 mg tablet 5 mg PO QDAY simvastatin 20 mg tablet 20 mg PO QPM omeprazole 20 mg capsule,delayed release(DR/EC) 20 mg PO BID estradiol 0.5 mg tablet 0.5 mg PO QDAY flunisolide 25 mcg (0.025 %) spray,non-aerosol 2 spray INTRANASAL BID multivitamin tablet 1 tab PO QDAY calcium citrate 250 mg calcium-vitamin D3 200 unit tablet 250 mg calcium- 200 unit tablet 1 tab PO BID ascorbic acid (vitamin C) 500 mg capsule 500 mg PO DAILY folic acid 0.8 mg capsule 800 mcg PO QDAY potassium gluconate 2.5 mEq tablet 2.5 meq PO QDAY ferrous sulfate 134 mg (27 mg iron) tablet 134 mg (27 mg iron) tablet 134 mg PO QDAY glucos sul [id number] 1 EACH capsule 1 ea PO DAILY levothyroxine 137 MCG tablet 137 mcg PO MOTUWETHFRSA DHA Algal-900 300 mg Capsule 900 mg PO DAILY Primary Care Provider: Renee Briscoe Referrals: Renee Briscoe MD [Primary Care Provider] - Disposition Disposition: [facility] What to do if you have Problems For any increased pain, shortness of breath, bleeding, nausea or vomiting, chestpain, or any unexpected problems, contact your Primary Care Provider. Call [facility] ([phone]) or report to the closest Emergency Room. Call 911 if necessary. 04/10/22 1415 <Electronically signed by Guera Salomon MD> Cosigner Signature (if applicable): CC: Dr. Renee Briscoe MD ~ Signed [facility] Work Phone: [phone]) 788-829108-26-2022 Miscellaneous Notes* Letter - Mammography Coordinator - 10/13/2021 10:46 AM EDT October 13, 2021 PID: [id number] Destini Christensen [address] [place] [address] Dear Ms. Christensen, We are pleased to inform you that the results of your recent breast imaging exam on 10/13/2021 are normal. Your mammogram demonstrates that you have dense breast tissue, which could hide abnormalities. Dense breast tissue, in and of itself, is a relatively common condition. Therefore, this information is not provided to cause undue concern; rather, it is to raise your awareness and promote discussion with your health care provider regarding the presence of dense breast tissue in addition to other riskfactors. Early detection of cancer is very important. We also understand recommendations regarding breast cancer screening are controversial. Please discuss with your primary care provider which strategy is best for you and whether a mammogram is right for you. Your imaging studies and report will be kept on file at [facility] as part of your permanent medical record and are available for your continuing care. Thank you for allowing us to help in meeting your health care needs. Sincerely, Dr. Monk Interpreting Radiologist [facility] (Normal over 40) documented in this encounter[facility]08-[facility] History of Present illness Narrative* RT Muna(R) - 10/13/2021 8:10 AM EDT Radiology Service Progress Note PATIENT NAME: Destini Christensen DATE OF SERVICE: October 13, 2021 TIME: 8:10 AM PATIENT IDENTITY VERIFICATION COMPLETED USING TWO (2) IDENTIFIERS: Name and Date of confirmedby patient verbally. FALL SCREENING: Has the patient had 2 falls in the last year or 1 fall with injury or currently using an Ambulatory Assistive Device (Walker, Cane, Wheelchair, Crutches, etc.)? No PATIENT GENDER DATA: Female. status: : No status: NO. PATIENT RELEVANT IMPLANT DATA REVIEWED: Not Applicable RADIOLOGY DEPARTMENT: Mammography PERIPHERAL IV DATA: Not applicable SIGNED BY: RT Muna(R) October 13, 2021 8:10 AM documented in this encounterCos[facility]06-[facility] History of Past illness Narrative* Problem Noted Date Resolved Date Stage 3 chronic kidney disease 08/13/2016 0 04/07/2018 Rheumatoid arthritis involvi ng both feet with positive rheumatoid factor 05/03/2015 04/07/2018 Monoclonal gammopathy 02/24/2014 03/11/2014 Thyroid nodule 10/28/2009 02/02/2010 Rheumatoid arthritis 03/24/2008 04/07/2018 Overview: [employer] minna, diagnosed in [place], recently seen at [facility] DR Clifford (retired) DR Bowser Last Assessment & Plan: Her joints are better with the remicade, she does not have much stiffness in the morning has more pain than stiffness, which just comes and goes. 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 documented as of this encounter (statuses as of 10/24/2022) [facility] History of Past illness Narrative* Problem Noted Date Diagnosed Date Resolved Date Stage 3 chronic kidney disease 08/13/2016 04/07/2018 Rheumatoid arthritis involvi ng both feet with positive rheumatoid factor 05/03/2015 04/07/2018 Monoclonal gammopathy 02/24/20142014 Thyroid nodule 10/28/2009 02/02/2010 Rheumatoid arthritis 03/24/2008 019 Overview: [employer] Work[employer] minna, diagnosed in [place], recently seen at [facility] DR Clifford (retired) DR Bowser Last Assessment & Plan: Her joints are better with the remicade, she does not have much stiffness in the morning has more pain than stiffness, which just comes and goes. documented as of this encounter (statuses as of 12/23/2022) [facility]. Aldridge [facility] April 11, 2022 8:48am Note Date/Time April 11, 2022 8:45am [facility] Medical Records Department [address] [place] [address] Discharge Summary 04/11/22 0844 MR#: [id number] Acct: [id number] Name: DESTINI CHRISTENSEN Rep #:[id number] : 1945 76 From: Victor M saleem MD PCP: Dr. Renee Briscoe MD Status:ADM IN Location: [place] [address] Providers Date of Admission: 04/10/22 Primary Care Physician: Dr. Renee Briscoe MD Reason For Visit: chest pain Diagnosis Discharge Diagnosis (1) Gallstone pancreatitis: Status: Acute Code(s): K85.10 - Biliary acute pancreatitis without necrosis or infection (2) Acute cholecystitis: Status: Acute Code(s): K81.0 - Acute cholecystitis Plan The patient had his pain was in the epigastric area but the epigastric pain has resolved since coming to the emergency room. She is still having some right upper quadrant pain. Currently she denies nausea but she says she had some thismorning. Ultrasound showed gallbladder wall thickening and ductal dilation withgallstones but her LFTs are normal. Her lipase is elevated. She likely has gallstone pancreatitis with possible acute cholecystitis. The stone in her ductmay have passed as her pain has resolved. I recommend starting with laparoscopic cholecystectomy with cholangiogram today. I did discuss with her that if it shows a stone or obstruction she would need ERCP tomorrow. I discussed laparoscopic cholecystectomy with her in detail as well. I will admit herto the floor and plan on operating later today. She was given a dose of antibiotics in the emergency room. Patient is on methotrexate and Remicade for her rheumatoid arthritis and I did inform her of increased risk of complicationsdue to this and she understands. I discussed the procedure in detail with the patient. I discussed the risks, benefits, and alternatives of the procedure. I discussed the risks including but not limited to bleeding, infection, injury to surrounding organs such as theliver, bile duct, bowels. I did discuss the possibility of having to convert riaz open procedure as well as the possibility that if any injuries occurred this may necessitate further surgery at a tertiary care center. Victor M Aldridge MD Pager: [facility] [address] [place] [address], [address] [place] [phone] Office: Medications at Discharge Home Medications amlodipine 5 mg tablet 5 mg PO QDAY BP 03/07/17 ascorbic acid (vitamin C) 500 mg capsule 500 mg PO DAILY SUPPLEMENT 03/07/17 calcium citrate 250 mg calcium-vitamin D3 5 mcg (200 unit) tablet 1 tab PO BID SUPPLEMENT 03/07/17 estradiol 0.5 mg tablet 0.5 mg PO QDAY HORMONE 03/07/17 ferrous sulfate 134 mg (27 mg iron) tablet 134 mg PO QDAY 03/07/17 flunisolide 25 mcg (0.025 %) nasal spray 2 spray intranasal BID ALLERGIES 03/07/17 folic acid 0.8 mg capsule 800 mcg PO QDAY 03/07/17 hydroxychloroquine 200 mg tablet 300 mg PO QDAY RA 03/07/17 infliximab 100 mg intravenous solution (Remicade) See Rx Instructions .Route .COMPLEX 03/07/17 lisinopril 20 mg tablet 20 mg PO BID BP 03/07/17 methotrexate sodium 2.5 mg tablet 7.5 tab PO THEODORE RA 03/07/17 multivitamin 1 tab PO QDAY 03/07/17 omeprazole 20 mg capsule,delayed release 20 mg PO BID REFLUX 03/07/17 potassium gluconate 2.5 mEq tablet 99 meq PO QDAY 03/07/17 simvastatin 20 mg tablet 20 mg PO QPM 03/07/17 glucosamine sulf dipot chlr,msm,chond 550 mg-C 30 mg-whit 1 mg capsule 1 ea PO DAILY 02/09/19 levothyroxine 137 mcg tablet 137 mcg PO MOTUWETHFRSA 02/09/19 docosahexaenoic acid 300 mg capsule (DHA Algal-900) 900 mg PO DAILY 10/31/20 acetaminophen 325 mg tablet (Tylenol) 650 mg PO Q4H PRN PRN Pain 1-10 Or Fever #0 tabs 04/11/22 oxycodone 5 mg tablet 5 - 10 mg PO Q4H PRN PRN Pain Score 4-10 5 days #15 tabs 04/11/22 Hospital Course Operations cholecystecomy Summary of Care Provided Hospital Course: Patient was admitted with gallstone pancreatitis. She was taken for laparoscopic cholecystectomy with cholangiogram. Cholangiogram showed good flowthrough the common bile duct with a dilated duct. The following day she was doing well and her LFTs and white count did resolve. She was advanced on her diet and was tolerating diet she was discharged home. Physical Exam Const oriented x3 Resp normal respiratory effort GI soft to palpation and non-tender Weight / BMI Weight Weight: 168 lb 6.931 oz Body Mass Index (BMI) 28.9 ABG / Lab / Microbiology Data Result Diagrams: 04/11/22 06:30 04/11/22 06:30 Laboratory: Laboratory Results - last 24 hr 04/10/22 08:30: WBC 8.1, RBC 5.09, Hgb 15.3 H, Hct 47.2 H, MCV 92.7, MCH 30.1, MCHC 32.4, RDW Std Deviation 46.8 H, RDW Coeff of Darleen 13.8, Plt Count 217, MPV 11.0, Immature Gran % (Auto) 0.100, Neut % (Auto) 45.8 L, Lymph % (Auto) 46.6 H,[place] % (Auto) 5.2, Eos % (Auto) 1.8, Baso % (Auto) 0.5, Absolute Neuts (auto) 3.7, Absolute Lymphs (auto) 3.78, Nucleated RBC % 0 04/10/22 08:30: Sodium 140, Potassium 3.7, Chloride 107, Carbon Dioxide 26.0, Anion Gap 7, BUN 19 H, Creatinine 1.21 H, Estim Creat Clear Calc 34.69, Est GFR (MDRD) Af Amer 56 L, Est GFR (MDRD) Non-Af 46 L, BUN/Creatinine Ratio 15.7, Glucose 199 H, Calcium 9.6, Total Bilirubin 0.90, Direct Bilirubin 0.32 H, AST 50 H, ALT 43, Alkaline Phosphatase 69, Troponin I High Sens 57 H, Total Protein 7.6, Albumin 3.7, Globulin 3.9, Lipase 4813 H 04/10/22 11:28: Troponin I High Sens 50 04/11/22 06:30: WBC 4.8, RBC 3.97 L, Hgb 12.1, Hct 36.6 L, MCV 92.2, MCH 30.5, MCHC 33.1, RDW Std Deviation 46.9 H, RDW Coeff of Darleen 13.8, Plt Count 131 L, MPV10.8, Immature Gran % (Auto) 0.200, Neut % (Auto) 74.1 H, Lymph % (Auto) 19.1, [place] % (Auto) 6.4, Eos % (Auto) 0.0, Baso % (Auto) 0.2, Absolute Neuts (auto) 3.6, Absolute Lymphs (auto) 0.92, Nucleated RBC % 0 04/11/22 06:30: Sodium 142, Potassium 3.8, Chloride 113 H, Carbon Dioxide 23.0, Anion Gap 6, BUN 14, Creatinine 0.75, Estim Creat Clear Calc 41.97, Est GFR (MDRD) Af Amer 96, Est GFR (MDRD) Non-Af 80, BUN/Creatinine Ratio 18.6, Glucose 110 H, Calcium 8.6, Total Bilirubin 0.70, AST 79 H, ALT 80 H, Alkaline Phosphatase 58, Total Protein 6.3 L, Albumin 3.0 L, Globulin 3.3, Albumin/Globulin Ratio 0.9, Lipase 70 L Radiography Diagnostic Testing: Radiology Impression Chest X-Ray 04/10/22 09:05 IMPRESSION: Hyperinflation. Mild degree of increased markings at the left lung base suggestive of either atelectasis and/or scarring. Electronically Signed: Arley Frazier MD at 9:50 EST , Gallbladder Ultrasound 04/10/22 10:13 IMPRESSION: Gallbladder wall thickening and mild distention. Multiple gallstones. Sludge is seen within the gallbladder lumen. Dilated common bile duct. Electronically Signed: Arley Frazier MD at 11:25 EST , Cholangiogram 04/10/22 16:21 IMPRESSION: Intraoperative transhepatic cholangiogram Electronically Signed: Edward Castle MD at 16:58 EST , D/C Instructions Discharge Diet: Light diet - advance as tolerated Discharge Activity: May Drive (for 2-3 days or while taking narcotic pain medications.) and - (Do not drive, work heavy equipment or sign legal documents for 24 hours.) May shower in (days): 1 Lifting Restrictions: 20 lbs for 2 weeks Additional Activity Instructions: Pain medication may cause nausea. You should typically eat light foods as you take your pain medications. Pain medication may cause constipation. If this is a problem for you, please discuss with your doctor. Call your doctor if your incision/area has: Continuous Slow Oozing, Sudden Increased Bleeding, Increased Pain/ Swelling, Increased Redness and Foul Smelling Discharge Call your doctor if you observe: Fever of 101 or Higher Suture Line Care: Avoid Pulling/Pushing and Avoid Pinching/Bending Remove Dressing in: 2 days Additional Dressing/Incision Instructions: Leave operative bandaids on for 2 days. When you remove dressing, leave Steri-Strips on until your follow-up appointment, or until the Steri-Strips fall off on their own. Please Follow Up With: Victor M Aldridge MD When: Please call to schedule 2 week follow up appointment at [phone] Meaningful Use Info Meaningful Use Diagnoses (Choose all that apply): None applicable Discharge Plan Admission Admit Date/Time: 04/10/22 18:25 Attending Provider: Victor M Aldridge Primary Care Provider: Renee Briscoe Discharge Orders/Prescriptions Prescriptions: New acetaminophen [Tylenol] 325 mg Tablet 650 mg PO Q4H PRN PRN (Reason: Pain 1-10 Or Fever) Qty: 0 0RF oxycodone 5 mg Tablet 5 - 10 mg PO Q4H PRN PRN (Reason: Pain Score 4-10) 5 Days Qty: 15 0RF Continued infliximab [Remicade] 100 mg recon soln See Rx Instructions .ROUTE .COMPLEX Label Comments: q 60 days Rx Instructions: q 60 days methotrexate sodium 2.5 mg tablet 7.5 tab PO THEODORE hydroxychloroquine 200 mg tablet 300 mg PO QDAY lisinopril 20 mg tablet 20 mg PO BID amlodipine 5 mg tablet 5 mg PO QDAY simvastatin 20 mg tablet 20 mg PO QPM omeprazole 20 mg capsule,delayed release(DR/EC) 20 mg PO BID estradiol 0.5 mg tablet 0.5 mg PO QDAY flunisolide 25 mcg (0.025 %) spray,non-aerosol 2 spray INTRANASAL BID multivitamin tablet 1 tab PO QDAY calcium citrate 250 mg calcium-vitamin D3 200 unit tablet 250 mg calcium- 200 unit tablet 1 tab PO BID ascorbic acid (vitamin C) 500 mg capsule 500 mg PO DAILY folic acid 0.8 mg capsule 800 mcg PO QDAY potassium gluconate 2.5 mEq tablet 99 meq PO QDAY ferrous sulfate 134 mg (27 mg iron) tablet 134 mg (27 mg iron) tablet 134 mg PO QDAY glucos sul [id number] 1 EACH capsule 1 ea PO DAILY levothyroxine 137 MCG tablet 137 mcg PO MOTUWETHFRSA DHA Algal-900 300 mg Capsule 900 mg PO DAILY Referrals / Follow Up: Renee Briscoe MD [Primary Care Provider] - Disposition Disposition (needs filled in before D/C Order can be placed): Home, Self Care 04/11/22 0848 <Electronically signed by Victor M Aldridge MD> Cosigner Signature (if applicable): CC: Dr. Victor M Aldridge MD; Dr. Renee Briscoe MD~ Signed [facility] Work Phone: Evaluation noteNo assessment information available [facility] Work Phone: Evaluation note* Diagnosis Onset Date Resolution Status Acute cholecystitis acute Gallstone pancreatitis acute [facility] Work Phone: Evaluation note* Diagnosis Onset Date Resolution Status Acute cholecystitis resolved Gallstone pancreatitis resol luisa Acute cholecystitis resolved [facility] Work Phone: History and physical note Author Dr. Aldridge [facility] April 10, 2022 2:10pm Note Date/Time April 10, 2022 2:00pm [facility] Medical Records Department [address] [place] [address] H&P Exam - Surgical 04/10/22 1358 MR#: [id number] Acct: [id number] Name: DESTINI CHRISTENSEN Rep #:[id number] : 1945 76 From: Victor M saleem MD PCP: Dr. Renee Briscoe MD Status:REG ER Location: ED HPI - General General Date of Admission: 04/10/22 HPI Narrative DESTINI CHRISTENSEN, is a 76 F who presents with epigastric pain. Patient says this started this morning around 7 AM. She had lower chest and epigastric pain whichhave now resolved. She is still having some right upper quadrant pain. She didhave nausea but no vomiting and she denied fevers and chills. [facility] Medical History Alcohol use Bladder disease Bone fracture Breast lump Broken femur Cataracts, bilateral Femur fracture, right Former smoker Gastric reflux GI problem High cholesterol History of steroid therapy History of stress test HTN (hypertension) Hypothyroidism Left foot amputee Low iron Neuropathy Osteoarthritis Osteopenia Pneumonia Rheumatoid arthritis Rheumatoid arthritis Seasonal allergies UTI (urinary tract infection) Vision problems Home Medications amlodipine 5 mg tablet 5 mg PO QDAY BP 03/07/17 [History Last Taken 11/07/20] ascorbic acid (vitamin C) 500 mg capsule 500 mg PO DAILY SUPPLEMENT 03/07/17 [History Last Taken Unknown] calcium citrate 250 mg calcium-vitamin D3 5 mcg (200 unit) tablet 1 tab PO BID SUPPLEMENT 03/07/17 [History Last Taken Unknown] estradiol 0.5 mg tablet 0.5 mg PO QDAY HORMONE 03/07/17 [History Last Taken Unknown] ferrous sulfate 134 mg (27 mg iron) tablet 134 mg PO QDAY 03/07/17 [History Last Taken Unknown] flunisolide 25 mcg (0.025 %) nasal spray 2 spray intranasal BID ALLERGIES 03/07/17 [History Last Taken Unknown] folic acid 0.8 mg capsule 800 mcg PO QDAY 03/07/17 [History Last Taken Unknown] hydroxychloroquine 200 mg tablet 300 mg PO QDAY RA 03/07/17 [History Last Taken Unknown] infliximab 100 mg intravenous solution (Remicade) See Rx Instructions .Route .COMPLEX 03/07/17 [History Last Taken 10/31/17] lisinopril 20 mg tablet 20 mg PO BID BP 03/07/17 [History Last Taken 11/07/20] methotrexate sodium 2.5 mg tablet 7.5 tab PO THEODORE RA 03/07/17 [History Last Taken Unknown] multivitamin 1 tab PO QDAY 03/07/17 [History Last Taken Unknown] omeprazole 20 mg capsule,delayed release 20 mg PO BID REFLUX 03/07/17 [History Last Taken 11/07/20] potassium gluconate 2.5 mEq tablet 2.5 meq PO QDAY 03/07/17 [History Last Taken Unknown] simvastatin 20 mg tablet 20 mg PO QPM 03/07/17 [History Last Taken Unknown] glucosamine sulf dipot chlr,msm,chond 550 mg-C 30 mg-whit 1 mg capsule 1 ea PO DAILY 02/09/19 [History Last Taken Unknown] levothyroxine 137 mcg tablet 137 mcg PO MOTUWETHFRSA 02/09/19 [History Last Taken Unknown] docosahexaenoic acid 300 mg capsule (DHA Algal-900) 900 mg PO DAILY 10/31/20 [History Last Taken Unknown] Allergy/AdvReac Type Severity Reaction Status Date / Time adhesive tape Allergy Severe Unknown Verified 09/18/21 17:07 grass pollen Allergy Severe Unknown Verified 11/07/20 07:38 house dust Allergy Severe Unknown Verified 11/07/20 07:38 Family History Mother Thyroid disorder Grandmother Diabetes Osteoporosis Grandfather Arthritis Surgical History H/O Achilles tendon repair H/O colonoscopy H/O foot surgery H/O shoulder replacement H/O thyroidectomy H/O: hysterectomy Status post fusion of wrist Social History Smoking Status: Former smoker second hand exposure: No alcohol intake: never substance use type: does not use ROS Constitutional Constitutional: Denies anorexia, fatigue or fever(s) Eyes Eyes: Denies blurry vision ENT HEENT: Denies abnormal hearing Respiratory/Chest Respiratory/Chest: Denies cough or dyspnea Gastrointestinal Gastrointestinal: Reports abdominal pain and nausea; Denies constipation, diarrhea or vomiting Genitourinary Genitourinary: Denies change in urinary stream Musculoskeletal Musculoskeletal: Denies abnormal gait Integumentary Integumentary: Denies jaundice Psychiatric Psychiatric: Denies anxiety Endocrine Endocrinology: Denies flushing Hematologic/Lymphatic Hematologic/Lymphatic: Denies easy bleeding Vital Signs Vital Signs Vital Signs: 04/10/22 08:20 04/10/22 08:32 04/10/22 08:46 Temperature 97.2 F L Temperature Source Oral Pulse Rate 56 L 56 L Respiratory Rate 18 Blood Pressure 70/46 L 85/50 L Blood Pressure Mean 54 61 Pulse Ox 95 Oxygen Delivery Method Room Air Room Air 04/10/22 11:26 04/10/22 12:11 Temperature Temperature Source Pulse Rate 74 65 Respiratory Rate 18 17 Blood Pressure 142/71 H 139/68 H Blood Pressure Mean 94 91 Pulse Ox 97 97 Oxygen Delivery Method Room Air Room Air Weight Weight: 164 lb 10.965 oz Body Mass Index (BMI) 28.3 Physical Exam Const oriented x3 and no apparent distress Resp normal respiratory effort Cardio regular rate and regular rhythm GI soft to palpation Palpation: tender RUQ Extremity normal to inspection Results Lab / Micro Data Result Diagrams: 04/10/22 08:30 04/10/22 08:30 Labs: Laboratory Results - last 24 hr 04/10/22 08:30: WBC 8.1, RBC 5.09, Hgb 15.3 H, Hct 47.2 H, MCV 92.7, MCH 30.1, MCHC 32.4, RDW Std Deviation 46.8 H, RDW Coeff of Darleen 13.8, Plt Count 217, MPV 11.0, Immature Gran % (Auto) 0.100, Neut % (Auto) 45.8 L, Lymph % (Auto) 46.6 H,[place] % (Auto) 5.2, Eos % (Auto) 1.8, Baso % (Auto) 0.5, Absolute Neuts (auto) 3.7, Absolute Lymphs (auto) 3.78, Nucleated RBC % 0 04/10/22 08:30: Sodium 140, Potassium 3.7, Chloride 107, Carbon Dioxide 26.0, Anion Gap 7, BUN 19 H, Creatinine 1.21 H, Estim Creat Clear Calc 34.69, Est GFR (MDRD) Af Amer 56 L, Est GFR (MDRD) Non-Af 46 L, BUN/Creatinine Ratio 15.7, Glucose 199 H, Calcium 9.6, Total Bilirubin 0.90, Direct Bilirubin 0.32 H, AST 50 H,ALT 43, Alkaline Phosphatase 69, Troponin I High Sens 57 H, Total Protein 7.6, Albumin 3.7, Globulin 3.9, Lipase 4813 H 04/10/22 11:28: Troponin I High Sens 50 Radiology Impression Chest X-Ray 04/10/22 09:05 IMPRESSION: Hyperinflation. Mild degree of increased markings at the left lung base suggestive of either atelectasis and/or scarring. Electronically Signed: Arley Frazier MD at 9:50 EST , Gallbladder Ultrasound 04/10/22 10:13 IMPRESSION: Gallbladder wall thickening and mild distention. Multiple gallstones. Sludge is seen within the gallbladder lumen. Dilated common bile duct. Electronically Signed: Arley Frazier MD at 11:25 EST , Assessment & Plan Assessment/Plan (1) Gallstone pancreatitis: (2) Acute cholecystitis: PLAN: Plan The patient had his pain was in the epigastric area but the epigastric pain has resolved since coming to the emergency room. She is still having some right upper quadrant pain. Currently she denies nausea but she says she had some thismorning. Ultrasound showed gallbladder wall thickening and ductal dilation withgallstones but her LFTs are normal. Her lipase is elevated. She likely has gallstone pancreatitis with possible acute cholecystitis. The stone in her ductmay have passed as her pain has resolved. I recommend starting with laparoscopic cholecystectomy with cholangiogram today. I did discuss with her that if it shows a stone or obstruction she would need ERCP tomorrow. I discussed laparoscopic cholecystectomy with her in detail as well. I will admit her to the floor and plan on operating later today. She was given a dose of antibiotics in the emergency room. Patient is on methotrexate and Remicade for her rheumatoid arthritis and I did inform her of increased risk of complicationsdue to this and she understands. I discussed the procedure in detail with the patient. I discussed the risks, benefits, and alternatives of the procedure. I discussed the risks including but not limited to bleeding, infection, injury to surrounding organs such as theliver, bile duct, bowels. I did discuss the possibility of having to convert riaz open procedure as well as the possibility that if any injuries occurred this may necessitate further surgery at a tertiary care center. Victor M Aldridge MD Pager: [facility] [address] [place] [address], [address] [place] [address] Office: 04/10/22 1410 <Electronically signed by Victor M Aldridge MD> Cosigner Signature (if applicable): CC: Dr. Victor M Aldridge MD; Dr. Renee Briscoe MD~ Signed [facility] Work Phone: Family History No Family History Records Found Relationship Condition Age at Onset Recorded Date/T alex mother Disorder of thyroid Unknown grandmother Diabetes mellitus Unknown Osteoporosis Unknown grandfather Arthritis Unknown Advance Directives No Advanced Directives Records Found Advance Directive Response Recorded Date/ Time Living Will Yes October 31, 2020 11:10am Power of Inspector [employer] Yes October 11:10am Advance Directive Response Recorded Date/ Time Name of Medical Power of Inspector [employer] Omid April 10, 2022 8:25am Living Will Yes April 10, 023 8:25am Power of Inspector [employer] Yes April 10, 2022 8:25am Advance Directive Response Recorded Date/ Time Name of Medical Power of Inspector [employer] Omid Christensen April 10, 2022 8:37pm Living Will Yes April 10, 2 023 8:37pm Power of Inspector [employer] Yes April 10, 2022 8:37pm Advance Directive Response Recorded Date/ Time Name of Medical Power of Inspector [employer] Omid Christensen April 10, 2022 9:37pm Living Will Yes April 10, 2 023 9:37pm Power of Inspector [employer] Yes April 10, 2022 9:37pm Advance Directive Response Recorded Date/ Time Name of Medical Power of Inspector [employer] OMID CHRISTENSEN October 12, 2022 8:18pm Living Will Yes October 12 8:18pm Power of Inspector [employer] Yes October 12, 2 023 8:18pm Chief Complaint and Reason for Visit Chief Complaint chest pain chest pain Chief Complaint chest pain ACUTE CHOLECYSTITIS WITH PANCREATITIS chest pain Reason for Visit Acute cholecystitis Gallstone pancreatitis Chief Complaint chest pain ACUTE CHOLECYSTITIS WITH PANCREATITIS chest pain Gall Bladder 04/10 Reason for Visit Acute cholecystitis Gallstone pancreatitis Acute cholecystitis Chief Complaint FALL Summary Purpose Additional Source Comments Source Comments (unrecognize d section and content) In the event this informatio n is protected by the Federal Confidentiality of Alcohol and Drug Abuse Patient Records regulations: The Federal rules restrict any use of the information to criminally investigate or prosecute any alcohol or drug abuse patient.[facility] the event this information is protected by the Federal Confidentiality of Alcohol and Drug Abuse Patient Records regulations: The Federal rules restrict any use of the information to criminally investigate or prosecute any alcohol or drug abuse patient.[facility] the event this information is protected by the Federal Confidentiality of Alcohol and Drug Abuse Patient Records regulations: The Federal rules restrict any use of the information to criminally investigate or prosecute any alcohol or drug abuse patient.[facility] the event this information is protected by the Federal Confidentiality of Alcohol and Drug Abuse Patient Records regulations: The Federal rules restrict any use of the information to criminally investigate or prosecute any alcohol or drug abuse patient.[facility] the event this information is protected by the Federal Confidentiality of Alcohol and Drug Abuse Patient Records regulations: The Federal rules restrict any use of the information to criminally investigate or prosecute any alcohol or drug abuse patient.[facility] the event this information is protected by the Federal Confidentiality of Alcohol and Drug Abuse Patient Records regulations: The Federal rules restrict any use of the information to criminally investigate or prosecute any alcohol or drug abuse patient.[facility] Care Teams (unrecognized sec tion and content) [employer] Members[employer] Sales Agent Relationship Specialty Start Date End Date Pratikbrigette Renee Sotomayoraine [address] [place] [address] PCP - General Family Practice 04/29/19 [employer] Members[employer] Sales Agent Relationship Specialty Start Date End Date Luis Felipe Reneenaresh Long [address] [place] [address] PCP - General Family Practice 04/29/19 Team Status: Active Member Role Status Dates Dr. Renee Briscoe MD Family Provider Active Dr. Renee Briscoe MD Primary Care Provider Active Team Status: Active Member Role Status Dates Dr. Renee Briscoe MD Primary Care Provider Active Dr. Guera Salomon MD Emergency Provider Active Dr. Victor M Aldridge MD Attending Provider Active Team Status: Inactive Member Role Status Dates Dr. Renee Briscoe MD Primary Care Provider Active Dr. Guera Salomon MD Emergency Provider Active Team Status: Active Member Role Status Dates Dr. Renee Briscoe MD Primary Care Provider Active Dr. Guera Salomon MD Emergency Provider Active Dr. Victor M Aldridge MD Admit Provid er, Attending Provider, Other Provider Active Team Status: Inactive Member Role Status Dates Dr. Renee Briscoe MD Primary Care Provider Active Dr. Guera Salomon MD Emergency Provider Active Dr. Victor M Aldridge MD Admit Provider, Attending Provider Active Team Status: Inactive Member Role Status Dates Dr. Renee Briscoe MD Primary Care Provider Active Dr. Victor M Aldridge MD Attending Provider, Referr ing Provider Active Team Status: Inactive Member Role Status Dates Dr. Renee Briscoe MD Primary Care Prov ider, Attending Provider, Referring Provider Active Team Status: Inactive Member Role Status Dates Dr. Renee Briscoe MD Primary Care Provider Active FLO AUGUSTIN Attending Provider, Referring Provi pablo Active Team Status: Inactive Member Role Status Dates Dr. Renee Briscoe MD Primary Care Provider Active Dr. Adolfo Avalos MD Emergency Provider Active [employer] Sales Agent Relationship Specialty Start Date End Date Renee Briscoe MD [address] [place] [address] PCP - General Family Medicine 04/29/19 [employer] Members[employer] Sales Agent Relationship Specialty Start Date End Date Renee Briscoe MD [address] [place] [address] PCP - General Family Medicine 04/29/19 [employer] Members[employer] Sales Agent Relationship Specialty Start Date End Date Renee Briscoe MD [address] [place] [address] PCP - General Family Medicine 04/29/19 [employer] Members[employer] Sales Agent Relationship Specialty Start Date End Date Renee Briscoe MD [address] [place] [address] PCP - General Family Medicine 04/29/19 Goals (unrecognized section and content) Goals may be documented in a n alternate sectionGoals may be documented in an alternate sectionGoals may be documented in an alternate sectionGoals may be documented in an alternate section INFORMATION SOURCE (unrecogn ized section and content) DATE CREATED AUTHOR 10/26/2023 [facility] DATE CREATED AUTHOR 'S ORGANIZ ATION 04/18/2024 [facility] FOR RECORDS PERTAINING TO PATIENTS WHO ARE OR HAVE BEEN ENROLLED IN A CHEMICAL DEPENDENCY/SUBSTANCEABUSE PROGRAM, SOME INFORMATION MAY BE OMITTED. This clinical summary was aggregated from multiple sources. Caution should be exercised in using it in the provision of clinical care. This summary normalizes information from multiple sources, and as a consequence, information in this document may materially change the coding, format and clinical context of patient data. In addition, data may be omitted in some cases. CLINICAL DECISIONS SHOULD BE BASED ON THE PRIMARY CLINICAL RECORDS. [facility]. provides no warranty or guarantee of the accuracy or completeness of information in this document.
== END | disposition home or self-care (01) ==
LOC: MTLAB 07:22
PROVIDERS: PCP Family Medicine; Referring Provider Nurse Practitioner Family; Visit Provider Nurse Practitioner Family
DX: R19.7 Diarrhea, unspecified (principal)
CPT/HCPCS: 83630; 87177; 87209; 87493

== ENCOUNTER → 2024-12-04 | Outpatient (CLI) | payer MEDICARE, OTHER, SELFPAY ==
[2024-12-04 10:50] LABS: Cholesterol 167 mg/dL (<=200); Low Density Lipoprotein Calc. 67 mg/dL; Triglycerides 43 mg/dL; Very Low Density Lipoprotein 9 mg/dL (5-40); cholesterol:hdl ratio screen 1.83
== END | disposition home or self-care (01) ==
PROVIDERS: PCP Family Medicine; Referring Provider Family Medicine; Visit Provider Family Medicine
DX: E78.5 Hyperlipidemia, unspecified (principal); E03.9 Hypothyroidism, unspecified
CPT/HCPCS: 36415; 80061; 84439; 84443